=== PATIENT | female | born 1975 | race Caucasian/White ===

== ENCOUNTER 2017-11-13 13:32 | Emergency (ER) | payer OTHER ==
[2017-11-13 13:46] VITALS: BP 115/67
--- NOTE | 2017-11-13 14:35 | UC ---
Abdominal Pain Female HPI - HPI Summary HPI Summary: 42 year old female presents with complains of severe RUQ pain, diarrhea, nausea and vomiting. - History of Current Complaint Chief Complaint: UCAbdominalPain Stated Complaint: ABDOMINAL PAIN Time Seen by Provider: 11/13/17 14:33 Hx Obtained From: Family/Principal Examiner Hx Last Menstrual Period: 10/30/17 Onset/Duration: Sudden Onset Severity Initially: Moderate Severity Currently: Moderate Pain Scale Used: 0-10 Numeric - 7 Radiates to: Back Character: Cramping Aggravating Factor(s): Movement Allergies/Adverse Reactions: Allergies Allergy/AdvReac Type Severity Reaction Status Date / Time Latex Allergy Rash Verified 11/13/17 13:46 PMH/Surg Hx/FS Hx/Imm Hx Previously Healthy: Yes - Surgical History Surgical History: Yes Surgery Procedure, Year, and Place: t&a - Family History Known Family History: Positive: None - Social History Alcohol Use: None Substance Use Type: None Smoking Status (MU): Never Smoked Tobacco Have You Smoked in the Last Year: No - Immunization History Most Recent Influenza Vaccination: 07/2016 Most Recent Tetanus Shot: 06/2016 Most Recent Pneumonia Vaccination: never Review of Systems Constitutional: Negative Skin: Negative Eyes: Negative ENT: Negative Respiratory: Negative Cardiovascular: Negative Gastrointestinal: Abdominal Pain, Vomiting, Diarrhea, Nausea Genitourinary: Negative Motor: Negative Neurovascular: Negative Musculoskeletal: Negative Neurological: Negative Psychological: Negative All Other Systems Reviewed And Are Negative: Yes Physical Exam Triage Information Reviewed: Yes Vital Signs: Initial Vital Signs Temp 36.5 C 11/13/17 13:41 Pulse 81 11/13/17 13:41 Resp 18 11/13/17 13:41 BP 115/67 11/13/17 13:41 Pulse Ox 100 11/13/17 13:41 Vital Signs Reviewed: Yes Eye Exam: Normal ENT Exam: Normal Dental Exam: Normal Neck exam: Normal Neck: Positive: 1 Respiratory Exam: Normal Cardiovascular Exam: Normal Abdomen Description: Positive: Other: - ruq pain (+) polo sign Musculoskeletal Exam: Normal Neurological Exam: Normal Psychological Exam: Normal Skin Exam: Normal Abd Pain Female Course/Dx - Differential Dx/Diagnosis Provider Diagnoses: ruq pain. dirrrhea. nausea Discharge - Discharge Plan Condition: Stable Disposition: OTHER Discharge Disposition Comment: patient suggested to go to the er Patient Education Materials: Acute Abdominal Pain (ED) Referrals: Ney Javed, DOCTOR'S ASSISTANT [Primary Care Provider] - Additional Instructions: patient suggested to go to the er for severe ruq pain
== END 2017-11-13 14:48 ==
LOC: UCEAST 13:32
DX: R10.11 Right upper quadrant pain (principal); R19.7 Diarrhea, unspecified; R11.0 Nausea
CPT/HCPCS: 93005; 99211; G0463

== ENCOUNTER 2018-06-11 07:37 | Emergency (ER) | payer OTHER ==
--- NOTE | 2018-06-11 08:08 | ED ---
Abdominal Pain/Female - HPI Summary HPI Summary: This patient is a 42 year old F presenting to [facility] with a chief complaint of diarrhea since 4 weeks ago. She endorses abd sx of diarrhea off and on every 4 days for the past 4 weeks. In the past week, she endorses diarrhea all day every day. She states that every time she eats, she experiences diffuse abd pain. She also endorses rectal pain getting worse, loss of appetite, fatigue, hematochezia, bloating, and rectal ulcerations. Pt denies oral lesions, rashes, arthralgia, and fever. PMHx Crohns, but in remission. She denies sx of Crohn s for 3 years. Pt notes she was 23 years old when she first experienced sx. Pt denies taking any medication for these sx. - History of Current Complaint Chief Complaint: EDAbdPain Stated Complaint: ABD PAIN Time Seen by Provider: 06/11/18 07:50 Hx Obtained From: Patient Hx Last Menstrual Period: 10/30/17 Onset/Duration: Gradual Onset, Lasting Weeks, Still Present Timing: Constant Severity Initially: Moderate Severity Currently: Moderate Pain Intensity: 7 Pain Scale Used: 0-10 Numeric Location: Diffuse Radiates: No Aggravating Factor(s): Food Alleviating Factor(s): Nothing Associated Signs and Symptoms: Positive: Blood in Stool, Decreased Appetite, Diarrhea, Other: - fatigue. Negative: Fever Allergies/Adverse Reactions: Allergies Allergy/AdvReac Type Severity Reaction Status Date / Time latex Allergy Rash Verified 06/11/18 07:45 PMH/Surg Hx/FS Hx/Imm Hx GI History: Reports: Hx Crohn's Disease Sensory History: Denies: Hx Legally Blind Opthamlomology History: Denies: Hx Legally Blind EENT History: Denies: Hx Deafness Psychiatric History: Reports: Hx Anxiety, Hx Depression - hx SSRI use, on none at present - Surgical History Surgery Procedure, Year, and Place: t&a Infectious Disease History: No Infectious Disease History: Denies: Traveled Outside the [place] in Last 30 Days - Family History Known Family History: Positive: None - Social History Alcohol Use: None Substance Use Type: Reports: None Smoking Status (MU): Never Smoked Tobacco Have You Smoked in the Last Year: No Review of Systems Positive: Fatigue. Negative: Fever Negative: Other - oral lesions Positive: Abdominal Pain, Diarrhea Negative: Arthralgia Negative: Rash All Other Systems Reviewed And Are Negative: Yes Physical Exam - Summary Physical Exam Summary: Appearance: Well appearing, no pain distress Skin: warm, dry, reflects adequate perfusion, no rashes Head/face: normal Eyes: EOMI, ABDI ENT: normal Neck: supple, non-tender Respiratory: CTA, breath sounds present Cardiovascular: RRR, pulses symmetrical Abdomen: Soft, non-tender Bowel Sounds: present, normal Musculoskeletal: normal, strength/ROM intact, no joint swelling Neuro: normal, sensory motor intact, A&Ox3 Rectal: Single shallow ulceration at the anus, no bleeding or fissure Triage Information Reviewed: Yes Vital Signs On Initial Exam: Initial Vitals Temp Pulse Resp BP Pulse Ox 98 F 84 17 119/88 100 06/11/18 07:39 06/11/18 07:39 06/11/18 07:39 06/11/18 07:39 06/11/18 07:39 Vital Signs Reviewed: Yes Diagnostics - Vital Signs Vital Signs Temp Pulse Resp BP Pulse Ox 06/11/18 07:39 98 F 84 17 119/88 100 - Laboratory Result Diagrams: 06/11/18 08:56 06/11/18 08:10 Lab Statement: Any lab studies that have been ordered have been reviewed, and results considered in the medical decision making process. Abdominal Pain Fem Course/Dx - Course Course Of Treatment: Patient with a past medical history consistent with "a little Crohn's disease". She has not had any relapse in about 3 years. She is most concerned with having colon cancer despite having no bleeding or family history. She does have a rectal ulcer and symptoms over a month most consistent with Crohn's flare. She has no significant tenderness on exam. I discussed this with her GI doctor who came to the ER to evaluate her. He started her on medication here and will follow her up early in the week. They plan for colonoscopy shortly. - Diagnoses Provider Diagnoses: Chronic diarrhea, Acute Crohn's disease - Provider Notifications Discussed Care Of Patient With: Nish Martinez Time Discussed With Above Provider: 08:54 Instructed by Provider To: Other - Dr. Martinez agreed to see pt in ED. Discharge - Sign-Out/Discharge Documenting (check all that apply): Patient Departure - discharge - Discharge Plan Condition: Improved Disposition: HOME Prescriptions: Balsalazide Disodium [Colazal] 750 mg PO TID #90 capsule Patient Education Materials: Crohn Disease (ED), Chronic Diarrhea (ED) Referrals: Nish Martinez MD [Medical Doctor] - Ney Javed NP [Primary Care Provider] - Additional Instructions: Call Lela Ramirez the nurse and the GI office on Wednesday at [phone] to schedule colonoscopy Return with fever, vomiting, increased pain, worse or other concerns. - Billing Disposition and Condition Condition: IMPROVED Disposition: Home
[2018-06-11 08:19] VITALS: BP 125/82
[2018-06-11 08:37] LABS: EGFR Non-African American 86.9 (>60)
--- OUTSIDE RECORDS SUMMARY | 2018-06-11 08:40 | XMS REPORT ---
:1975 External Reference #:[id number] Author Organization [facility] Address [address] [place] [address] [place] [address] Phone [phone] Care Team Providers Name Role Phone Ney Javed NP Primary Care Physician Unavailable Payers Type Date Identification Numbers Payment Provider Subscriber Commercial Policy Number: [id number] [employer] Alexandra Hernandez PayID: [id number] [address] [place] [address] Problems Description No Information Family History Date Family Member(s) Problem(s) Comments Paternal Grandmother Breast Cancer Maternal Grandmother Breast Cancer Social History Type Date Description Comments Lives With Adult family home 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 [employer] Smoking Patient has never smoked Allergies, Adverse Reactions, Alerts Date Description Reaction Status Severity Comments 05/13/2018 NKDA active Medications Medication Date Status Form Strength Qnty SIG Indications Ordering Provider No Active 05/13/2018 Active Unknown Medications Vital Signs Date Vital Result Comment 05/13/2018 Height 64 inches 5'4" Weight 156.00 lb Heart Rate 81 /min BP Systolic 110 mmHg BP Diastolic 80 mmHg O2 % BldC Oximetry 98 % BMI (Body Mass Index) 26.8 kg/m2 Results Description No Information Procedures Description No Information Plan of Care 05/13/2018 - Dianne Rollins [id number] Encntr for veterinary surgery technician exam (general) (routine) w abnormal findingsComments:Rec Annual with Pap one yearRec Screening mammogram 6 months after weans [id number] Cystocele, midlineComments:Discussed Rx options incl observation, I recommend Pelvic PT, will refer, prefers [place].Not interested in pessary. Considering surgery but not now, ?s answered.Referral:No Doctor SelectedFollow up:Refer to [facility] [place] for Pelvic PT
[2018-06-11 09:04] LABS: ABS Basophils 0.1 10^3/ul (0-0.2); ABS Eosinophils 0.1 10^3/ul (0-0.6); ABS Lymphocytes 1.7 10^3/ul (1.0-4.8); ABS Monocytes 0.5 10^3/ul (0-0.8); ABS Neutrophils 4.9 10^3/ul (1.5-7.7); ABS Nucleated RBC 0 10^3/ul; Hematocrit 43 % (35-47); Hemoglobin 14.7 g/dl (12.0-16.0); Lymphocyte % 23.1 % (25-47); Mean Corpuscular HGB Conc 34 g/dl (31-36); Mean Corpuscular Hemoglobin 30 pg (27-31); Mean Corpuscular Volume 89 fL (80-97); Mean Platelet Volume 7.1 um3 (7.4-10.4); Nucleated Red Blood Cells % 0; Platelet Count 307 10^3/ul (150-450); Red Blood Count 4.86 10^6/ul (4.00-5.40); Red Cell Distribution Width 14 % (10.5-15); White Blood Count 7.3 10^3/ul (3.5-10.8)
--- NOTE | 2018-06-11 14:08 | CONS ---
GASTROENTEROLOGY CONSULTATION: DATE: 06/11/18 REFERRING PHYSICIANS: Stephane Maddox, ER; Ney Javed NP, [place]. REASON FOR CONSULT: Crampy abdominal pain and increasing diarrhea over the last 7 to 8 weeks. 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 She did not respond to Pentasa or Entocort (never took PO steroids) and later seemed to do well on a very restrictive diet. She began to have diarrhea over the day about once a week, sometime in late March and this has progressed to every day symptoms She was eating pretty much a general diet, moderately low in carbohydrates, dairy and with some minimal gluten restriction as she was eating a fair amount to support nursing her [id number] daughter. The loose stools gradually increased to 2 to 3 and then 4 days in a week after each meal, especially in the evening. She began to be worried that she might have colon cancer and that thought has dominated her thinking in the last couple of weeks. At this point, she was having pain and diarrhea after every meal the last 2 weeks. She has had some rectal pain over the last week and there was 1 day with some bright red rectal bleeding. She had not had any fever, rash, or nausea and vomiting. She has been tired, but admits she does not get much sleep as her daughter is up nursing regularly. The daughter is eating solid food and is healthy. Dr Burk is the child's research and development engineer. Her last antibiotic was she believes Cipro for mastitis 6 to 7 months ago and there was clearly no change in her gut status at that time or for several months thereafter. She does not chew gum or have sugar free items. PAST MEDICAL HISTORY: 1. Crohn's disease - she had a colonoscopy in 2006 with ileal and ileocecal valve area aphthous erosions. Pentasa and Entocort (? some other medications) did not seem to help and she went on a very restricted diet that was essentially no carbohydrates, no gluten, no dairy (yogurt was permitted) and she seemed to get better. In 2014, she had a flare up of symptoms and a second colonoscopy showed a single aphthoid erosion in the ileum. She admitted that the symptoms had been fading even before the colonoscopy. Dr. Dai did not feel an inflammatory bowel disease was related to the symptoms at that time. She did not f/u with Dr Dai but went to an apparatus cleaner, who did not find any food allergy, though the patient, said the apparatus cleaner did not do a complete set of tests and she thought the workup was incomplete. At that time, she went back to the 2006 diet and did well, although has gradually been loosening up. Over the last couple of weeks, she has been putting restrictions back in. 2. Tonsillectomy. FAMILY HISTORY: There is no family history of inflammatory bowel disease. There is no family history of colon cancer. An aunt has IBS. 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 She has 2 children and her son age 5-1/2 actually was weaned in the course of practically getting through her 2015 colonoscopy. Her is content producer at [employer]. She is from [place] originally. REVIEW OF SYSTEMS: She has no history of seizure, neurologic disorder, TB, hemoptysis, chronic lung disease, skin rash, renal stones, renal disease. All her life, she has had dietary sensitivities related to high-fat meals, especially beef and pork induced diarrhea. Dr. Dai thought there were functional triggers when she was seen in 2014. PHYSICAL EXAM: She is a healthy-appearing young woman, crying at intervals when discussing her family history and the risk of cancer. HEENT exam is unremarkable. She has no adenopathy. Her lungs are clear and heart sounds are normal. The abdomen is symmetric with normal bowel sounds, soft, and nontender. Perianal inspection is generally normal with general abstraction showing small fissures at noon and 7 o'clock at the verge. Digital rectal is tolerated better than expected and is normal with no specimen. Extremities were normal. DIAGNOSTIC STUDIES/LAB DATA: Yesterday, stool analysis was positive for lactoferrin and today CBC, hemoglobin 14.7, white count 7.3, platelets 307. CRP 1.77. LFTs normal. Albumin 4.4, BUN 20, creatinine 0.74. Other labs from the past show TSH normal at 2.87 in December 2017, cortisol 16.3 at 8:40 a.m. in October 2014, vitamin D low at 13.5 in December 2017, at which time a lipid panel showed cholesterol 276, triglycerides 296, HDL 61.7, and hemoglobin A1c 5.7. She has been worked up then by Ney Javed for polydipsia. IMPRESSION: This 42-year-old woman, a mother of 2 young children, still nursing her eightteen month old, has a history of ileocecal Crohn's that was been endoscopically mild in 2006 and endoscopically felt to be negligible by Dr. Dai in 2014. She has not had any systemic symptoms associated with the current 7 to 8 weeks of diarrhea, though she is fatigued and has lost a few pounds and there is lactoferrin in the stool. Inflammatory bowel disease certainly could be part of the clinical picture here and starting balsalazide 3 tablets b.i.d. is reasonable as one awaits the performance of a colonoscopy. No other obvious dietary trigger is present. She will be exploring the question of nursing weaning and balsalazide. [id number]/CPS #: [id number] MTDD
== END 2018-06-11 10:50 | disposition home or self-care (01) ==
LOC: ED 07:37
DX: K50.90 Crohn's disease, unspecified, without complications (principal)
CPT/HCPCS: 36415; 80053; 83516; 83690; 85025; 86140; 86256; 99282

== ENCOUNTER 2019-01-12 11:20 | Emergency (ER) | payer OTHER ==
--- OUTSIDE RECORDS SUMMARY | 2019-01-12 11:43 | XMS REPORT | Continuity of Care Document ---
:1975 External Reference #:[id number] Author Name Swetha Salomon Care Team Providers Name Role Phone Ney Javed NP Primary Care Physician Unavailable Payers Date Identification Numbers Payment Provider Subscriber Policy Number: [id number] [employer] Alexandra Hernandez PayID: [id number] [address] [place] [address] Advance Directives Description No Information Available Problems Description No Information Family History Date Family Member(s) Observation Comments Father Hypertension as of 2018 no complications Mother Hypothyroidism Paternal Grandmother Breast Cancer Maternal Grandmother Breast Cancer Social History Type Date Description Comments Sex Unknown 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 Lives With Adult family home Lives With Children 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 [employer] Tobacco Use Start: Unknown End: Patient is a former smoker Unknown Smoking Status Reviewed: 01/10/19 Patient is a former smoker Allergies, Adverse Reactions, Alerts Description No Known Drug Allergies Medications Medication Date Status Form Strength Qnty SIG Indications Ordering Provider Multivitamin Active Tablets 1 by Unknown Adult 00 mouth every day Vitamin D-3 Active Capsules 1000Unit 1 by Unknown 00 mouth every day No Active 05/13/20 Hx Unknown Medications 18 - 12/09/19 19 Immunizations Description No Information Available Vital Signs Date Vital Result Comment 01/10/2019 11:15am Height 64 inches 5'4" Weight 161.00 lb Heart Rate 86 /min BP Systolic 110 mmHg BP Diastolic 76 mmHg O2 % BldC Oximetry 98 % BMI (Body Mass Index) 27.6 kg/m2 12/16/2018 2:52pm Height 64 inches 5'4" Weight 161.00 lb Heart Rate 93 /min BP Systolic 117 mmHg BP Diastolic 80 mmHg O2 % BldC Oximetry 97 % BMI (Body Mass Index) 27.6 kg/m2 Last Menstrual Period [id number] 12/09/2018 2:56pm Height 64 inches 5'4" Weight 160.38 lb Heart Rate 80 /min BP Systolic 141 mmHg BP Diastolic 83 mmHg O2 % BldC Oximetry 99 % BMI (Body Mass Index) 27.5 kg/m2 08/17/2018 1:45pm Height 64 inches 5'4" Weight 152.00 lb Heart Rate 68 /min BP Systolic 114 mmHg BP Diastolic 81 mmHg Respiratory Rate 18 /min Body Temperature 97.1 F Pain Level 0 O2 % BldC Oximetry 99 % BMI (Body Mass Index) 26.1 kg/m2 05/13/2018 2:56pm Height 64 inches 5'4" Weight 156.00 lb Heart Rate 81 /min BP Systolic 110 mmHg BP Diastolic 80 mmHg O2 % BldC Oximetry 98 % BMI (Body Mass Index) 26.8 kg/m2 Results Test Date Facility Test Result H/L Range Note CBC Auto Diff 12/16/2018 [facility] [place] White Blood 8.9 10^3/uL N 3.5-10.[address] [address] [phone] Red Blood Count 4.77 10^6/uL N 4.00-5.40 Hemoglobin 14.5 g/dL N 12.0-16.0 Hematocrit 42 % N 35-47 Mean Corpuscular Volume 89 fL N 80-97 Mean Corpuscular Hemoglobin 30 pg N 27-31 Mean Corpuscular HGB Conc 34 g/dL N 31-36 Red Cell Distribution Width 14 % N 10.5-15 Platelet Count 386 10^3/uL N 150-450 Mean Platelet Volume 7.5 fL N 7.4-10.4 Abs Neutrophils 4.8 10^3/uL N 1.5-7.7 Abs Lymphocytes 3.1 10^3/uL N 1.0-4.8 Abs Monocytes 0.5 10^3/uL N 0-0.8 Abs Eosinophils 0.4 10^3/uL N 0-0.6 Abs Basophils 0.1 10^3/uL N 0-0.2 Abs Nucleated RBC 0 10^3/uL Granulocyte % 54.2 % Lymphocyte % 35.0 % Monocyte % 5.8 % Eosinophil % 4.2 % Basophil % 0.8 % Nucleated Red Blood Cells % 0.1 Laboratory test 12/16/2018 [facility] [place] HCG < 0.60 mIU/ mL [address] [place] [address] [phone] TSH (Thyroid Stim Horm) 1.13 mcIU/mL N 0.34-5.60 Vitamin B12 536 pg/mL N 180-914 2 Free T4 (Free Thyroxine) 0.69 ng/dL N 0.61-1.12 Vitamin D Total 25(Oh) 28.7 ng/mL N 20-50 Lyme Western 12/16/2018 [facility] [place] Lyme Disease Negative Negative Blot [address] [place] [address] [phone] Lyme Disease IgG Bands Present p41,p39 kDa Lyme Disease IgM Ab WB Negative Negative Lyme Disease IgM Bands Present No bands detecte <SEE NOTE> kDa 3 Lyme Disease Interpretation See Comment 4 Basic Metabolic Panel 12/16/2018 [facility] [place] Sodium 138 mmol/L N 135-[address] [place] [address] [phone] Potassium 4.4 mmol/L N 3.5-5.0 Chloride 105 mmol/L N 101-111 Co2 Carbon Dioxide 26 mmol/L N 22-32 Anion Gap 7 mmol/L N 2-11 Glucose 115 mg/dL High 70-100 Blood Urea Nitrogen 16 mg/dL N 6-24 Creatinine 0.86 mg/dL N 0.51-0.95 BUN/Creatinine Ratio 18.6 N 8-20 Calcium 9.7 mg/dL N 8.6-10.3 Egfr Non- 72.7 >60 Egfr 88.0 >60 5 Laboratory test 12/16/2018 [facility] [place] Cytology SEE RESULT [address] [place] [address] [phone] Laboratory test 12/09/2018 [facility] Test negative finding Urine Ua Routine 12/09/2018 [facility] Ua Specific 1.010 [place] Ua PH 8 Ua Color yellow Ua Appera cloudy Ua WBC negative Ua Protein trace Ua Glucose normal Ua Ketones negative Ua Bilirubin negative Ua Urobilinogen normal Ua Nitrite negative Ua Occult Blood about 50 1 <5.0 Negative 5.0 - 25.0 Indeterminate (Repeat testing recommended after 72 hours) >25.0 Positive Perimenopausal women can display HCG levels of up to 20 mIU/mL 2 Normal Range 180 to 914 Indeterminate Range 145 to 180 Deficient Range <145 3 No bands detected 4 Specific serologic response to B. burgdorferi infection is not detected, but cannot rule out early infection during which low or undetectable antibody levels to B. burgdorferi may be present. If clinically indicated, a new serum specimen should be submitted in 7-14 days. ADDITIONAL INFORMATION Per CDC criteria, the Lyme IgG Immunoblot is interpreted as positive if IgG-class antibodies are detected to >=5 B. burgdorferi proteins, and the Lyme IgM Immunoblot is interpreted as positive if IgM-class antibodies are detected to >=2 B. burgdorferi proteins. Immunoblot patterns not meeting these criteria should not be interpreted as positive. Epitopes from certain B. burgdorferi proteins (e.g., p41) are conserved across other bacteria, which may lead to the detection of IgM- and/or IgG-class antibodies on the Lyme disease immunoblots in patients without Lyme disease. Immunoblot should only be ordered on specimens that are positive or equivocal by a FDA-licensed Lyme disease antibody screening test (e.g., EIA). Results of the Lyme IgM immunoblot should not be considered in patients with >=30 days of symptoms. Test Performed by: [facility] [address] [place] [address] 5 Because ethnic data is not always readily available, this report includes an eGFR for both -Americans and non- Americans. The National Kidney Disease Education Program (NKDEP) does not endorse the use of the MDRD equation for patients that are not between the ages of 18 and 70, are , have extremes of body size, muscle mass, or nutritional status, or are non- or non-. According to the National Kidney Foundation, irrespective of diagnosis, the stage of the disease is based on the level of kidney function: Stage Description GFR(mL/min/1.73 m(2)) 1 Kidney damage with normal or decreased GFR 90 2 Kidney damage with mild decrease in GFR 60-89 3 Moderate decrease in GFR 30-59 4 Severe decrease in GFR 15-29 5 Kidney failure <15 (or dialysis) 6 SEE RESULT BELOW Name: ALEXANDRA HERNANDEZ : [address]: Dianne Rollins MD Acct: [id number] Unit: [id number] AGE: 43 Location: [facility] Re12/16/18 SEX: F Status: REG REF SPEC: [id number] JAH: 12/16/[address]: Dianne Rollins MD REQ: [id number] RECD: 12/16/18 STATUS: SOUT _ ORDERED: TP IMAGE ANALYS, HPV/Thin Prep COMMENTS: [id number] Negative for Intraepithelial lesion or Malignancy Date Time Test Result Flag (u) Normal Range 12/16/181528 @ HPV RNA Negative Negative @ @ The high-risk HPV types detected by the assay include: 16, @ 18, 31, 33, 35, 39, 45, 51, 52, 56, 58, 59, 66, and 68. A. Ectocervical/Endocervical Specimen Adequacy: Satisfactory of evaluation Transformation zone component identified Patient Information: HPV: High risk HPV RNA testing regardless of pap results. Actual Specimen Date: 12/16/18 Last Menstrual Date: 11/29/18 ?: N Post Menopausal?: N Hysterectomy?: N Signed by and Reported on: MANUEL Aguilar (ASCP) [id number] This Pap test was evaluated with the assistance of the InstacartPrep Test Imaging System. Due to cytologic findings at the nuclear powerplant mechanic microscope, comprehensive manual rescreening by a Antique Refinisher may be required. The Pap Smear is a screening test designed to aid in the detection of premalignant and malignant conditions of the uterine cervix. It is not a diagnostic procedure and should not be used as the sole means of detecting cervical cancer. Both false- positive and false- negative reports do occur. Depending on your risk status, a Pap smear should be obtained and evaluated every 1-3 years. END OF REPORT DEPARTMENT OF PATHOLOGY, [address] [place] [address] Markus Navarrete M.D. 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 Sono week of 02/06/19 if possible, otherwise just after 02/2019 menses.
--- OUTSIDE RECORDS SUMMARY | 2019-01-12 11:43 | XMS REPORT | Continuity of Care Document ---
:1975 External Reference #:[id number] Author Name Swetha Salomon Care Team Providers Name Role Phone Ney Javed NP Primary Care Physician Unavailable Payers Type Date Identification Numbers Payment Provider Subscriber Policy Number: [id number] [employer] Alexandra Hernandez PayID: [id number] [address] [place] [address] Advance Directives Description No Information Available Problems Description No Information Family History Date Family Member(s) Problem(s) Comments Father Hypertension as of 2017 no complications Mother Hypothyroidism Paternal Grandmother Breast Cancer Maternal Grandmother Breast Cancer Social History Type Date Description Comments Sex Unknown 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] Date Facility Test Result H/L Range Note Laboratory test 12/16/2018 [facility] Cytology <pending> finding [address] [place] [address] [phone] Laboratory test 12/09/2018 [facility] Test negative finding Urine Ua Routine 12/09/2018 [facility] Ua Specific 1.010 [place] Ua PH 8 Ua Color yellow Ua Appera cloudy Ua WBC negative Ua Protein trace Ua Glucose normal Ua Ketones negative Ua Bilirubin negative Ua Urobilinogen normal Ua Nitrite negative Ua Occult Blood about 50 Procedures Date Code Description Status 06/21/2018 [id number] Colonoscopy Completed 07/15/2015 [id number] Colonoscopy Completed 04/14/2007 [id number] Colonoscopy Completed Encounters Type Date Location Provider Dx Diagnosis Office Visit 08/17/2018 [facility] Gastroenterology Nish Escobar 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 Plan of Treatment Future Appointment(s):01/24/2019 11:30 am - Dianne Rollins MD at [facility]12/16/2018 - Dianne Rollins MDN93.0 Postcoital and contact bleedingComments:Pap collected and sentFollow up:Please schedule follow up appt with me after sono to review [id number] Other fatigueNew Labs:CBC Auto Diff, Ordered: 12/16/18HCG , Ordered: 12/16/18TSH (Thyroid Stim Horm), Ordered: 12/16/18Vitamin B12, Ordered: 12/16/18Free T4 (Free Thyroxine), Ordered : 12/16/18Vitamin D Total 25(Oh), Ordered: 12/16/18Lyme Western Blot, Ordered: 12/16/18Basic Metabolic Panel, Ordered: 12/16/18
--- OUTSIDE RECORDS SUMMARY | 2019-01-12 11:43 | XMS REPORT | Continuity of Care Document ---
:1975 External Reference #:[id number] Author Name TORY Benjamin Address [address] [place] [address] Care Team Providers Name Role Phone TORY Benjamin Care Team Information Certified Tumor Registrar Unavailable Payers Date Identification Numbers Payment Provider Subscriber Policy Number: [id number] [facility] Alexandra Hernandez PayID: [id number] 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 Stoppe End: Unknown smoker 15+ years ago Recreational Drug Use Denies Drug Use Enjoy Exercising Enjoys exercising not getting much exercise Allergies, Adverse Reactions, Alerts Description No Known Drug Allergies Medications Medication Date Status Form Strength Qnty SIG Indications Ordering Provider Vitamin D 01/10/ Active Capsules 81856Ihon 8caps take 1 M79.10 Shawnti (Ergocalcifero 2019 capsule by no Pizano) mouth twice COMBINE DRIVER-C weekly for 4 weeks Prednisone 08/31/ Active Tablets 20mg 10tabs 2 by mouth J20.9 Luisana 2018 every day Hillary, for 5 days M.D., R.D. Ventolin HFA 08/31/ Active Aerosol 108(90Base 54unit inhale two J20.9 Luisana 2017 ) mcg/Act s puffs by Hillary, mouth tid to Elise, qid R.D. Proctozone-HC 06/07/ Active Cream 2.5% 30gm apply to K51.911 [facility] 2018 hemorrhoids Bernie Javed, 3 - 4 times COMBINE DRIVER-C daily if needed Marion 3 06/16/ Active Capsules Luisana 2017 Elise Thornton, R.D. Multi Vitamin / Active Tablets 1 by mouth Unknown Daily 0000 every day Vitamin D / Active Tablets 1000Unit 1 by mouth Unknown 0000 every day Azithromycin 08/31/ Hx Tablets 250mg 6tabs 2 by mouth J20.9 Luisana 2018 - today then 1 Hillary, 01/10/ by mouth M.DAnthony, 2019 daily for 4 R.D. days Alprazolam 06/14/ Hx Tablets 0.25mg 14tabs take 1/2 to F43.0 Shinenti 2018 - 1 tab twice Bernie Javed, 08/23/ daily if COMBINE DRIVER-C 2018 needed for anxiety Vitamin D 01/14/ Hx Capsules [id number] 8caps take 1 Shawnti (Ergocalcifero 2018 - capsule by no Pizano) 06/07/ mouth twice COMBINE DRIVER-C 2018 weekly for 4 weeks No Active 06/16/ Hx Unknown Medications 2016 - 2016 06/16/ Hx Tablets Luisana Vitamins 2017 - Hillary, 02/21/ MAnthonyDAnthony, 2018 R.D. Cephalexin 06/16/ Hx Capsules 500mg 30caps 1 by mouth N61.0 Luisana 2017 - three times Hillary, 08/13/ a day for 7 M.D., 2017 days R.D. Immunizations CPT Code Status Date Vaccine Lot # [id number] Given 11/30/2017 Influenza Virus Vaccine, Quadrivalent, 3 Yr > Quad, Preserv Free Vital Signs Date Vital Result Comment 01/10/2019 1:48pm Weight 161.25 lb Weight 73.143 kg BP Systolic 112 mmHg BP Diastolic 64 mmHg Heart Rate 80 /min Body Temperature 98.6 F Respiratory Rate 16 /min Last Menstrual Period 7136401 O2 % BldC Oximetry 98 % 08/31/2018 3:12pm Weight 155.00 lb Weight 70.308 kg BP Systolic 108 mmHg BP Diastolic 68 mmHg Heart Rate 94 /min Body Temperature 99.3 F Respiratory Rate 20 /min O2 % BldC Oximetry 99 % 08/23/2018 3:45pm Weight 154.00 lb Weight 69.854 kg BP Systolic 110 mmHg BP Diastolic 78 mmHg Heart Rate 70 /min Body Temperature 98.0 F Respiratory Rate 16 /min O2 % BldC Oximetry 98 % 06/14/2018 4:27pm Weight 151.00 lb Weight 68.494 kg BP Systolic 110 mmHg BP Diastolic 70 mmHg Heart Rate 72 /min Body Temperature 97.2 F Respiratory Rate 16 /min 06/07/2018 10:19am Weight 154.00 lb Weight 69.854 kg BP Systolic 102 mmHg BP Diastolic 68 mmHg Heart Rate 72 /min Body Temperature 97.7 F Respiratory Rate 16 /min 02/21/2018 9:28am Weight 154.00 lb Weight 69.854 kg BP Systolic 110 mmHg BP Diastolic 65 mmHg Heart Rate 84 /min Body Temperature 97.8 F Height 63.5 inches 5'3.50" BMI (Body Mass Index) 26.8 kg/m2 Last Menstrual Period 1406723 O2 % BldC Oximetry 98 % 01/13/2018 11:06am Weight 150.00 lb Weight 68.040 kg BP Systolic 110 mmHg BP Diastolic 60 mmHg Heart Rate 70 /min Body Temperature 97.3 F Respiratory Rate 16 /min O2 % BldC Oximetry 98 % 11/12/2017 9:46am Weight 148.00 lb Weight 67.133 kg BP Systolic 110 mmHg BP Diastolic 68 mmHg Heart Rate 70 /min Body Temperature 98.9 F Respiratory Rate 16 /min O2 % BldC Oximetry 98 % 08/13/2017 9:46am Weight 151.00 lb Weight 68.494 kg BP Systolic 104 mmHg BP Diastolic 70 mmHg Heart Rate 72 /min Body Temperature 97.5 F O2 % BldC Oximetry 98 % 06/16/2017 4:23pm Weight 152.00 lb Weight 68.947 kg BP Systolic 104 mmHg BP Diastolic 60 mmHg Heart Rate 80 /min Body Temperature 99.5 F Respiratory Rate 16 /min Height 64 inches 5'4" BMI (Body Mass Index) 26.1 kg/m2 Results Test Date Facility Test Result H/L Range Note Laboratory test 01/10/2019 [facility] Nuclear AB < pending> finding [phone] (Andie) By Ifa Igg Anti Ssa/Ro <pending> Anti SSB LA <pending> C Reactive Protein <pending> Cyclic Citrullinated Pep Igg <pending> Creatine Kinase(CK) <pending> Hla B27 <pending> Rheumatoid Factor <pending> CBC Auto Diff 12/16/2018 [facility] White Blood 8.9 10^3/uL N 3.5-10.8 [phone] Count Red Blood Count 4.77 10^6/uL N 4.00-5.40 [...] % Nucleated Red Blood Cells % 0.1 Basic Metabolic 12/16/2018 [facility] Sodium 138 mmol /L N 135-145 Panel [phone] Potassium 4.4 mmol/L N 3.5-5.0 Chloride 105 mmol/L N 101-111 Co2 Carbon Dioxide 26 mmol/L N 22-32 Anion Gap 7 mmol/L N 2-11 Glucose 115 mg/dL High 70-100 Blood Urea Nitrogen 16 mg/dL N 6-24 Creatinine 0.86 mg/dL N 0.51-0.95 BUN/Creatinine Ratio 18.6 N 8-20 Calcium 9.7 mg/dL N 8.6-10.3 Egfr Non- 72.7 >60 Egfr 88.0 >60 1 Laboratory test 12/16/2018 [facility] HCG < 0.60 mIU/mL 2 finding [phone] TSH (Thyroid Stim Horm) 1.13 mcIU/mL N 0.34-5.60 Free T4 (Free Thyroxine) 0.69 ng/dL N 0.61-1.12 Vitamin B12 536 pg/mL N 180-914 3 Vitamin D Total 25(Oh) 28.7 ng/mL N 20-50 Lyme Western 12/16/2018 [facility] Lyme Disease Negative Negative Blot [phone] IgG Ab WB Lyme Disease IgG Bands Present p41,p39 kDa Lyme Disease IgM Ab WB Negative Negative Lyme Disease IgM Bands Present No bands detecte <SEE NOTE> kDa 4 Lyme Disease Interpretation See Comment 5 Laboratory test 08/23/2018 [facility] TSH (Thyroid 2.20 mcIU/mL N 0.34-5.60 6 finding [phone] Stim Horm) CBC Auto Diff 08/23/2018 [facility] White Blood 8.9 10^3/uL N 3.5-10.8 [phone] Count Red Blood Count 4.49 10^6/uL N 4.00-5.40 Hemoglobin 13.7 g/dL N 12.0-16.0 Hematocrit 40 % N 35-47 Mean Corpuscular Volume 90 fL N 80-97 Mean Corpuscular Hemoglobin 31 pg N 27-31 Mean Corpuscular HGB Conc 34 g/dL N 31-36 Red Cell Distribution Width 13 % N 10.5-15 Platelet Count 406 10^3/uL N 150-450 Mean Platelet Volume 7.4 um3 N 7.4-10.4 Abs Neutrophils 4.6 10^3/uL N 1.5-7.7 Abs Lymphocytes 3.2 10^3/uL N 1.0-4.8 Abs Monocytes 0.7 10^3/uL N 0-0.8 Abs Eosinophils 0.3 10^3/uL N 0-0.6 Abs Basophils 0.1 10^3/uL N 0-0.2 Abs Nucleated RBC 0 10^3/uL Granulocyte % 51.6 % N 38-83 Lymphocyte % 36.3 % N 25-47 Monocyte % 7.8 % High 0-7 Eosinophil % 3.4 % N 0-6 Basophil % 0.9 % N 0-2 Nucleated Red Blood Cells % 0.2 Laboratory test 06/21/2018 [facility] Surgical SEE RESULT 7 finding [phone] Interface BELOW Order Laboratory test 06/16/2018 [facility] Helico Pylori Negative Negative 8 finding [phone] Antigen- Stool Stool Panel 06/16/2018 [facility] C Difficile SEE RESULT 9 (CMC) [phone] PCR BELOW Stool Occult 06/16/2018 [facility] Stool Occult SEE RESULT 10 Blood Diag [phone] Blood, Diag BELOW Laboratory test 06/11/2018 [facility] Anti Negative Negative 11 finding [phone] Endomysial Antibody Anti Gliadin 06/11/2018 [facility] Gliadin IgG <10.0 U 12 Igg And Iga AB [phone] Gliadin IgA <10.0 U 13 Laboratory test 06/11/2018 [facility] Tissue <1.2 U/ mL 14 finding [phone] Transglutaminase Igg AB Tissue Transglutaminase IgA Ab <1.2 U/mL 15 CBC Auto Diff 06/11/2018 [facility] White Blood 7.3 10^3/uL N 3.5-10.8 [phone] Count Red Blood Count 4.86 10^6/uL N 4.00-5.40 Hemoglobin 14.7 g/dL N 12.0-16.0 Hematocrit 43 % N 35-47 Mean Corpuscular Volume 89 fL N 80-97 Mean Corpuscular Hemoglobin 30 pg N 27-31 Mean Corpuscular HGB Conc 34 g/dL N 31-36 Red Cell Distribution Width 14 % N 10.5-15 Platelet Count 307 10^3/uL N 150-450 Mean Platelet Volume 7.1 um3 Low 7.4-10.4 Abs Neutrophils 4.9 10^3/uL N 1.5-7.7 Abs Lymphocytes 1.7 10^3/uL N 1.0-4.8 Abs Monocytes 0.5 10^3/uL N 0-0.8 Abs Eosinophils 0.1 10^3/uL N 0-0.6 Abs Basophils 0.1 10^3/uL N 0-0.2 Abs Nucleated RBC 0 10^3/uL Granulocyte % 67.2 % N 38-83 Lymphocyte % 23.1 % Low 25-47 Monocyte % 6.6 % N 0-7 Eosinophil % 2.0 % N 0-6 Basophil % 1.1 % N 0-2 Nucleated Red Blood Cells % 0 Laboratory test 06/11/2018 [facility] Lipase 23 U/L N 11.0-82.0 finding [phone] C Reactive Protein 1.77 mg/L N <8.01 Comp Metabolic Panel 06/11/2018 [facility] Sodium 136 mmol/L N 135-145 [phone] Potassium 4.1 mmol/L N 3.5-5.0 Chloride 108 mmol/L N 101-111 Co2 Carbon Dioxide 21 mmol/L Low 22-32 Anion Gap 7 mmol/L N 2-11 Glucose 105 mg/dL High 70-100 Blood Urea Nitrogen 20 mg/dL N 6-24 Creatinine 0.74 mg/dL N 0.51-0.95 BUN/Creatinine Ratio 27.0 High 8-20 Calcium 9.4 mg/dL N 8.6-10.3 Total Protein 7.6 g/dL N 6.4-8.9 Albumin 4.4 g/dL N 3.2-5.2 Globulin 3.2 g/dL N 2-4 Albumin/Globulin Ratio 1.4 N 1-3 Total Bilirubin 0.50 mg/dL N 0.2-1.0 Alkaline Phosphatase 68 U/L N 34-104 Alt 14 U/L N 7-52 Ast 14 U/L N 13-39 Egfr Non- 86.9 >60 Egfr 105.2 >60 16 Laboratory 02/21/2018 [facility] Vitamin D, 81 pg/mL Abnormal 18-78 17 test finding [phone] 1,25 Dihydroxy CBC Auto Diff 01/13/2018 [facility] White Blood 9.0 N 3.5-10.8 [phone] Count 10^3/uL Red Blood Count 4.67 10^6/uL N 4.0-5.4 Hemoglobin 14.0 g/dL N 12.0-16.0 Hematocrit 42 % N 35-47 Mean Corpuscular Volume 90 fL N 80-97 Mean Corpuscular Hemoglobin 30 pg N 27-31 Mean Corpuscular HGB Conc 33 g/dL N 31-36 Red Cell Distribution Width 14 % N 10.5-15 Platelet Count 384 10^3/uL N 150-450 Mean Platelet Volume 8 um3 N 7.4-10.4 Abs Neutrophils 5.2 10^3/uL N 1.5-7.7 Abs Lymphocytes 2.7 10^3/uL N 1.0-4.8 Abs Monocytes 0.7 10^3/uL N 0-0.8 Abs Eosinophils 0.3 10^3/uL N 0-0.6 Abs Basophils 0.1 10^3/uL N 0-0.2 Abs Nucleated RBC 0 10^3/uL Granulocyte % 58.2 % N 38-83 Lymphocyte % 30.0 % N 25-47 Monocyte % 7.7 % N 1-9 Eosinophil % 3.0 % N 0-6 Basophil % 1.1 % N 0-2 Nucleated Red Blood Cells % 0.1 Comp Metabolic Panel 01/13/2018 [facility] Sodium 136 mmol/L N 133-145 [phone] Potassium 4.4 mmol/L N 3.5-5.0 Chloride 102 mmol/L N 101-111 Co2 Carbon Dioxide 27 mmol/L N 22-32 Anion Gap 7 mmol/L N 2-11 Glucose 93 mg/dL N 70-100 Blood Urea Nitrogen 17 mg/dL N 6-24 Creatinine 0.69 mg/dL N 0.51-0.95 BUN/Creatinine Ratio 24.6 High 8-20 Calcium 10.1 mg/dL N 8.6-10.3 Total Protein 7.7 g/dL N 6.4-8.9 Albumin 4.7 g/dL N 3.2-5.2 Globulin 3.0 g/dL N 2-4 Albumin/Globulin Ratio 1.6 N 1-3 Total Bilirubin 0.30 mg/dL N 0.2-1.0 Alkaline Phosphatase 75 U/L N 34-104 Alt 32 U/L N 7-52 Ast 21 U/L N 13-39 Egfr Non- 94.2 >60 Egfr 121.2 >60 18 Laboratory test 01/13/2018 [facility] TSH (Thyroid 2.87 mcIU/mL N 0.34-5.60 19 finding [phone] Stim Horm) Vitamin D Total 25(Oh) 13.5 ng/mL Low 20-50 20 Hemoglobin A1c (Glyco HGB) 5.7 % High 4.0-5.6 21 Lipid Profile 01/13/2018 [facility] Triglycerides 296 mg/dL 22 (Trig/Chol/HDL) [phone] Cholesterol 276 mg/dL 23 HDL Cholesterol 61.7 mg/dL 24 LDL Cholesterol 155 mg/dL 25 Laboratory test 01/13/2018 [facility] Cytology SEE RESULT 26 finding [phone] Non-Nurse Midwife/Clinical Instructor BELOW 1 Because ethnic data is not always readily [...] 15-29 5 Kidney failure <15 (or dialysis) 2 <5.0 Negative 5.0 - 25.0 Indeterminate (Repeat testing recommended after 72 hours) >25.0 Positive Perimenopausal women can display HCG levels of up to 20 mIU/mL 3 Normal Range 180 to 914 Indeterminate Range 145 to 180 Deficient Range <145 4 No bands detected 5 Specific serologic response to B. burgdorferi infection [...] >=30 days of symptoms. 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 Colon, random right, biopsy: -- Benign colonic mucosa with no significant pathologic abnormalities. -- No evidence of microscopic colitis. 2. Colon, random transverse, biopsy: -- Benign colonic mucosa with no significant pathologic abnormalities. -- No evidence of microscopic colitis. 3. Colon, random descending, biopsy: -- Benign colonic mucosa with no significant pathologic abnormalities. -- No evidence of microscopic colitis. 4. Colon, random sigmoid, biopsy: -- Benign colonic mucosa with no significant pathologic abnormalities. -- No evidence of microscopic colitis. CLINICAL HISTORY Restricted diet POST-OPERATIVE DIAGNOSIS Colonoscopy to cecum with ease; excellent prep; conclusion: normal colon and terminal ileum; hypertrophied anal papillae; diarrhea, irritable bowel syndrome (?) GROSS DESCRIPTION 1. The specimen is received in formalin labeled, Random Right Colon Biopsies, and consists of three keenan white irregular soft tissue fragments ranging from 0.2 x 0.2 x 0.1 cm to 0.8 x 0.2 x 0.1 cm which are submitted entirely in one cassette. CONTINUED ON NEXT PAGE DEPARTMENT OF PATHOLOGY, [address] [place] [address] Markus Navarrete M.D. Director [facility] # [id number] RUN DATE: 06/22/18 [facility] LIVE PAGE 2 Patient: ALEXANDRA HERNANDEZ [id number] (Continued) GROSS DESCRIPTION (Continued) GROSS DESCRIPTION (Continued) 2. The specimen is received in formalin labeled, Random Transverse Colon Biopsies, and consists of two keenan-white irregular soft tissue fragments measuring 0.5 x 0.1 x 0.1 cm and 1.2 by up to 0.2 x 0.1 cm which are submitted entirely in one cassette. 3. The specimen is received in formalin labeled, Random Descending Colon Biopsy, and consists of two keenan-white irregular soft tissue fragments measuring 0.4 x 0.1 x 0.1 cm and 0.7 x 0.2 x 0.1 cm which are submitted entirely in one cassette. 4. The specimen is received in formalin labeled, Random Sigmoid Colon Biopsy, and consists of two keenan-white irregular soft tissue fragments averaging 0.7 x 0.2 x 0.1 cm which are submitted entirely in one cassette. Signed by and Reported on: Meera Julio MD 06/22/18 1630 END OF REPORT DEPARTMENT OF PATHOLOGY, [address] [place] [address] Markus Navarrete M.D. Director [facility] # [id number] 8 Test Performed by: [facility] - [address] [address] 9 SEE RESULT BELOW Name: ALEXANDRA HERNANDEZ : [address]: Ney Javed NP Acct: [id number] Unit: [id number] AGE: 42 Location: [facility] Re06/16/18 SEX: F Status: REG REF SPEC: [id number] JAH: 06/16/18-[address]: Ney Javed NP REQ: [id number] RECD: 06/16/18 STATUS: RES _ SOURCE: STOOL SPDESC: ORDERED: Occult Bl, Diag/R, C. diff PCR/S, Stool Culture/R, Fecal Lactoferr/ R, O P: Giar/Crypt/R Procedure Result Reported Site Stool Culture PENDING Stool Specimen Description Final 06/16/18- 1302 ML Stool Color Brown Stool Form Nonformed Stool Consistency Pasty Shiga Toxin 1 2 PENDING C. difficile PCR PENDING Fecal Lactoferrin (Stool WBC) PENDING Stool Occult Blood (1) PENDING O P: Giardia/Cryptospor Screen PENDING * ML - Main Lab . END OF REPORT DEPARTMENT OF PATHOLOGY, [address] [place] [address] Markus Navarrete M.D. Director [facility] # [id number] 10 SEE RESULT BELOW Name: ALEXANDRA HERNANDEZ : [address]: Ney Javed NP Acct: [id number] Unit: [id number] AGE: 42 Location: [facility] Re06/16/18 SEX: F Status: REG REF SPEC: [id number] JAH: 06/16/[address]: Ney Javed NP REQ: [id number] RECD: 06/16/18 STATUS: COMP _ SOURCE: STOOL SPDESC: ORDERED: Occult Bl, Diag/R, C. diff PCR/S, Stool Culture/R, Fecal Lactoferr/ R, O P: Isaiah/Crypt/R Procedure Result Reported Site Stool Culture Final 06/19/18- 1337 ML Result No enteric pathogens isolated Testing for Salmonella, Shigella, Aeromonas, Plesiomonas, Yersinia and Campylobacter are included in a Stool Culture. Vibrio spp not routinely tested for in a stool culture. If testing is desired, please request specifically when placing test order. Sensitivities not routinely performed on stool isolates, as antibiotics may prolong the carriage rate of bacteria. Please contact the microbiology lab if sensitivities are required. Stool Specimen Description Final 06/16/18- 1302 ML Stool Color Brown Stool Form Nonformed Stool Consistency Pasty Shiga Toxin 1 2 Final 06/17/18- 1208 ML Organism 1 Negative Shiga Toxin 1 2 Immunochromatographic Assay CONTINUED ON NEXT PAGE DEPARTMENT OF PATHOLOGY, [address] [place] [address] Markus Navarrete M.D. Director [facility] # [id number] Patient: ALEXANDRA HERNANDEZ [id number] (Continued) Specimen: [id number] Collected: 06/16/18 Received: 06/16/18 (Continued) Procedure Result Reported Site Shiga Toxin 1 2 Final (continued) 06/17/18- 1208 C. difficile PCR Final 06/16/18- 1345 ML Organism 1 027 Presumptive NEGATIVE Organism 2 Toxigenic C.diff NEGATIVE Fecal Lactoferrin (Stool WBC) Final 06/16/18- 1318 ML Fecal Lactoferrin Negative by Immunoassay TEST LIMITATIONS: Assay detects elevated levels of lactoferrin released from fecal leukocytes as a marker of intestinal inflammation. The test may not be appropriate in immunocompromised persons. Fecal samples from breast fed infants should not be used with this assay. Stool Occult Blood (1) Final 06/16/18- 1309 ML Stool Occult Blood Negative O P: Giardia/Cryptospor Screen Final 06/16/18- 1318 ML Organism 1 Neg Cryptosporidium/Giardia Giardia and cryptosporidium antigen testing performed by enzyme immunoassay. If patient is immunocompromised or has traveled to or is from a developing country, a full ova and parasite exam with microscopic (OPMIC) is recommended. All samples will be held one month in case full ova and parasite testing is requested. Contact the Microbiology Department at [phone]. TEST LIMITATIONS: As with all diagnostic procedures, the results obtained should be used in conjunction with other clinical information available the physician, including confirmation by another method. Negative results can occur in samples containing antigen below lower limits of detection of the assay. One negative specimen does not rule out the possibility of a parasitic infection. To improve detection CONTINUED ON NEXT PAGE DEPARTMENT OF PATHOLOGY, [address] [place] [address] Markus Navarrete M.D. Director [facility] # [id number] Patient: AALIYAHALEXANDRA [id number] (Continued) Specimen: [id number] Collected: 06/16/18-649 Received: 06/16/18-1051 (Continued) Procedure Result Reported Site O P: Giardia/Cryptospor Screen Final (continued) 06/16/18- 1317 it is recommended that three specimens be collected on separate days over a period of not more than seven days. The use of colonic washes, aspirates or other diluted sample types has not been established and could affect the performance of the assay. Stool samples contaminated with an oily or particulate base (eg. Barium, mineral oil etc.) could interfere with the test and are not recommended. * - Main Lab . END OF REPORT DEPARTMENT OF PATHOLOGY, [address] [place] [address] Markus Navarrete M.D. Director [facility] # [id number] 11 A negative serum IgA endomysial antibody is usually seen in normal individuals, however a diagnosis of celiac disease, dermatitis herpetiformis and other gluten sensitive disorders cannot be completely excluded, as this test may be negative in a subset of individuals with these disorders. If the clinical suspicion for one of these disorders is high, recommend further testing for gluten sensitivity as indicated by the Celiac Disease Comprehensive [place] ([place] Test Unit Code CDCOM). In addition serum IgA endomysial antibody may also be negative in gluten-sensitive patients (with celiac disease, dermatitis herpetiformis or other gluten-sensitive disorders), who adhere to a strict gluten-free diet. ADDITIONAL INFORMATION This test has been modified from the diesel engine fitter's instructions. Its performance characteristics were determined by [facility] in a manner consistent with CLIA requirements. This test has not been cleared or approved by the U.S. Food and Drug Administration. Test Performed by: [facility] - [address] [address] 12 REFERENCE VALUE <20.0 (Negative) Test Performed by: [facility] - [address] [address] 13 REFERENCE VALUE <20.0 (Negative) 14 REFERENCE VALUE <6.0 (Negative) Test Performed by: [facility] - [facility] [address] [place] [address] 15 REFERENCE VALUE <4.0 (Negative) Test Performed by: [address] [address] 16 Because ethnic data is not always readily [...] 15-29 5 Kidney failure <15 (or dialysis) 17 ADDITIONAL INFORMATION This test was developed and its performance characteristics determined by [facility] in a manner consistent with CLIA requirements. This test has not been cleared or approved by the U.S. Food and Drug Administration. Test Performed by: [facility] - [facility] [address] [place] [address] 18 Because ethnic data is not always readily [...] 15-29 5 Kidney failure <15 (or dialysis) 19 [id number] 20 [id number] 21 Therapeutic target for the treatment of diabetes mellitus patients is <7% HBA1C, and in selective patients <6.0%. Please refer to [place] [employer] diabetic care guidelines for further information. 22 Desirable: <150 Borderline High: 150-199 High: 200-499 Very High: >500 23 Desirable: <200 Borderline High: 200-239 High: >239 24 Low: <40 Desirable: 40-60 High: >60 25 Desirable: <100 Near Optimal: 100-129 Borderline High: 130-159 High: 160-189 Very High: >189 26 SEE RESULT BELOW Name: AALIYAHALEXANDRA James : [address]: Ney Javed NP Acct: [id number] Unit: [id number] AGE: 42 Location: [facility] Re01/14/18 SEX: F Status: REG REF SPEC: [id number] JAH: 01/13/18-[address]: Ney Javed NP REQ: [id number] RECD: 01/14/18446 STATUS: SOUT _ ORDERED: TAB THIN LAYER COMMENTS: [id number] FINAL DIAGNOSIS Urine, voided: Negative for malignant cells. URINE VOID CLINICAL HISTORY Micro hematuria GROSS DESCRIPTION 50 mls cloudy straw colored fluid Signed (signature on file) Meera Julio MD 1916 END OF REPORT * ML=Testing performed at Main Lab DEPARTMENT OF PATHOLOGY, [address] [place] [address] Markus Navarrete M.D. Director [facility] # [id number] Procedures Date Code Description Status 08/13/2017 91142 EKG, at Least 12 Leads w/Interpretation and Report Completed Encounters Type Date Location Provider Dx Diagnosis Office Visit 08/31/2018 Main Office Luisana Thornton, J20.9 Acute bronchitis , 3:15p Elise, R.D. unspecified Office Visit 08/23/2018 Main Office Ney Javed, L65.9 Nonscarring hair 3:45p [employer]BINE [employer]IVER-[employer] loss, unspecified R53.83 Other fatigue Office Visit 06/14/2018 4:30p Main Office Ney Gibbs R10.84 Generalized Storm, COMBINE DRIVER-C abdominal pain R19.7 Diarrhea, unspecified F43.0 Acute stress reaction Office Visit 06/07/2018 10:30a [facility] Ney Gibbs K51.911 Ulcerative Storm, COMBINE DRIVER-C colitis, unspecified with rectal bleeding Office Visit 02/21/2018 9:30a Main Office Ney Gibbs Z00.00 Encntr for Storm, COMBINE DRIVER-C general adult medical exam w/o abnormal findings E55.9 Vitamin D deficiency, unspecified Office Visit 01/13/2018 11:00a Main Office Ney Gibbs R31.9 Hematuria, Storm, COMBINE DRIVER-C unspecified N81.89 Other female genital prolapse R63.1 Polydipsia Office Visit 11/12/2017 9:45a Main Office Bk Hernandez, A08.39 Other viral enteritis Office Visit 08/13/2017 9:45a Main Office Bk Hernandez, I95.1 Orthostatic MD hypotension Office Visit 06/16/2017 4:30p Main Office Luisana Thornton, N61.0 Mastitis without Elise, R.D. abscess Plan of Treatment 01/10/2019 - LUIS ANTONIO Benjamin-CR10.84 Generalized abdominal painComments: discussed elimination diet, try 4 to 6 weeks without gluten, can refer back to GI ...for now follow with Devin Shoemaker for functional egsyyhpyV57.10 Myalgia, unspecified siteNew Medication:Vitamin D (Ergocalciferol) 76302 Unit - take 1 capsule by mouth twice weekly for 4 weeksComments:labs obtained today, ? autoimmune dx ... will treat Vit D deficiency
[2019-01-12 13:24] LABS: ABS Basophils 0.1 10^3/ul (0-0.2); ABS Eosinophils 0.2 10^3/ul (0-0.6); ABS Lymphocytes 2.6 10^3/ul (1.0-4.8); ABS Monocytes 0.7 10^3/ul (0-0.8); ABS Neutrophils 9.9 10^3/ul (1.5-7.7); ABS Nucleated RBC 0 10^3/ul; Eosinophil % 1.3 %; Hematocrit 47 % (35-47); Hemoglobin 15.8 g/dl (12.0-16.0); Lymphocyte % 18.9 %; Mean Corpuscular HGB Conc 34 g/dl (31-36); Mean Corpuscular Hemoglobin 30 pg (27-31); Mean Corpuscular Volume 89 fL (80-97); Mean Platelet Volume 7.4 fL (7.4-10.4); Nucleated Red Blood Cells % 0; Platelet Count 481 10^3/ul (150-450); Red Blood Count 5.24 10^6/ul (4.00-5.40); Red Cell Distribution Width 13 % (10.5-15); White Blood Count 13.5 10^3/ul (3.5-10.8)
[2019-01-12 13:42] LABS: ALT 23 U/L (7-52); AST 17 U/L (13-39); Albumin 4.8 g/dL (3.2-5.2); Albumin/Globulin Ratio 1.3 (1-3); Alkaline Phosphatase 70 U/L (34-104); Anion Gap 11 mmol/L (2-11); BUN/Creatinine Ratio 20.8 (8-20); Blood Urea Nitrogen 16 mg/dL (6-24); C Reactive Protein 2.18 mg/L (<8.01); CO2 Carbon Dioxide 25 mmol/L (22-32); Calcium 10.1 mg/dL (8.6-10.3); Chloride 102 mmol/L (101-111); EGFR Non-African American 82.6 (>60); Globulin 3.6 g/dL (2-4); Glucose 100 mg/dL (70-100); Potassium 3.8 mmol/L (3.5-5.0); Sodium 138 mmol/L (135-145); Total Protein 8.4 g/dL (6.4-8.9)
--- NOTE | 2019-01-12 13:42 | ED ---
Abdominal Pain/Female - HPI Summary HPI Summary: Pt is a 43 y/o female who presents to the ED c/o abdominal pain. A few weeks ago she began to have epigastric pain with intermittent nausea. Last night the pain moved to her RLQ and worsened. The pain is now rated a 7/10 in severity and is made worse with movement and walking. Pt denies any vomiting, fever, dysuria, hematuria, or vaginal discharge. Pt denies any prior abdominal surgeries. PMHx ovarian cysts and Crohns. LNMP 5 days ago. - History of Current Complaint Chief Complaint: EDAbdPain Stated Complaint: LOWER RIGHT ABD PAIN/NAUSEA Time Seen by Provider: 01/12/19 13:36 Hx Obtained From: Patient Hx Last Menstrual Period: 10/30/17 Onset/Duration: Gradual Onset, Worse Since Timing: Constant Severity Initially: Mild Severity Currently: Moderate Pain Intensity: 7 Pain Scale Used: 0-10 Numeric Location: Discrete At: RLQ, Epigastric - began Radiates: No Aggravating Factor(s): Movement, Other: - walking Alleviating Factor(s): Nothing Associated Signs and Symptoms: Positive: Nausea. Negative: Fever, Urinary Symptoms, Vaginal Discharge, Vomiting Allergies/Adverse Reactions: Allergies Allergy/AdvReac Type Severity Reaction Status Date / Time latex Allergy Rash Verified 06/11/18 07:45 PMH/Surg Hx/FS Hx/Imm Hx Endocrine/Hematology History: Denies: Hx Diabetes Cardiovascular History: Denies: Hx Hypertension GI History: Reports: Hx Irritable Bowel History: Reports: Other Problems/Disorders - ovarian cysts Denies: Hx Renal Disease Sensory History: Denies: Hx Legally Blind, Hx Deafness Opthamlomology History: Denies: Hx Legally Blind Psychiatric History: Reports: Hx Anxiety, Hx Depression - hx SSRI use, on none at present - Surgical History Surgery Procedure, Year, and Place: t&a Infectious Disease History: No Infectious Disease History: Denies: Traveled Outside the [place] in Last 30 Days - Family History Known Family History: Positive: Hypertension Negative: Diabetes - Social History Alcohol Use: None Hx Substance Use: No Substance Use Type: Reports: None Hx Tobacco Use: No Smoking Status (MU): Never Smoked Tobacco Have You Smoked in the Last Year: No Review of Systems Negative: Fever Positive: Abdominal Pain, Nausea. Negative: Vomiting Negative: dysuria, discharge, hematuria All Other Systems Reviewed And Are Negative: Yes Physical Exam - Summary Physical Exam Summary: Appearance: Well appearing, no pain distress Skin: warm, dry, reflects adequate perfusion Head/face: normal Eyes: EOMI, ABDI ENT: mucous membranes moist Neck: supple, non-tender Respiratory: CTA, breath sounds present Cardiovascular: RRR, pulses symmetrical Abdomen: soft, mild RLQ and right-sided pelvic tenderness, no RUQ tenderness, no rebound or guarding Bowel Sounds: present Musculoskeletal: normal, strength/ROM intact Neuro: normal, sensory motor intact, A&Ox3 Triage Information Reviewed: Yes Vital Signs On Initial Exam: Initial Vitals Temp Pulse Resp BP Pulse Ox 98.3 F 93 17 109/83 96 01/12/19 11:29 01/12/19 11:29 01/12/19 11:29 01/12/19 11:29 01/12/19 11:29 Vital Signs Reviewed: Yes Diagnostics - Vital Signs Vital Signs Temp Pulse Resp BP Pulse Ox 01/12/19 13:12 98.1 F 93 19 113/85 98 01/12/19 11:29 98.3 F 93 17 109/83 96 - Laboratory Lab Results: Lab Results 01/12/19 Range/Units 12:56 WBC 13.5 H (3.5-10.8) 10^3/ul RBC 5.24 (4.00-5.40) 10^6/ul Hgb 15.8 (12.0-16.0) g/dl Hct 47 (35-47) % MCV 89 (80-97) fL MCH 30 (27-31) pg MCHC 34 (31-36) g/dl RDW 13 (10.5-15) % Plt Count 481 H D (150-450) 10^3/ul MPV 7.4 (7.4-10.4) fL Neut % (Auto) 73.7 % Lymph % (Auto) 18.9 % [place] % (Auto) 5.0 % Eos % (Auto) 1.3 % Baso % (Auto) 1.1 % Absolute Neuts (auto) 9.9 H (1.5-7.7) 10^3/ul Absolute Lymphs (auto) 2.6 (1.0-4.8) 10^3/ul Absolute Monos (auto) 0.7 (0-0.8) 10^3/ul Absolute Eos (auto) 0.2 (0-0.6) 10^3/ul Absolute Basos (auto) 0.1 (0-0.2) 10^3/ul Absolute Nucleated RBC 0 10^3/ul Nucleated RBC % 0 Result Diagrams: 01/12/19 12:56 01/12/19 12:56 Lab Statement: Any lab studies that have been ordered have been reviewed, and results considered in the medical decision making process. - CT CT A/P CT Interpretation Completed By: Radiologist Summary of CT Findings: 1. NORMAL APPENDIX. 2. FATTY INFILTRATION OF THE LIVER. 3. SPONDYLOLYSIS WITH SPONDYLOLISTHESIS AT L5-S1. ED physician reviewed radiology report. Re-Evaluation - Re-Evaluation First Eval Re-Evaluation Time: 15:10 Change: Unchanged Comment: Pt denied pain medications and US. Abdominal Pain Fem Course/Dx - Course Course Of Treatment: Nurse's notes reviewed. Patient record had history of Crohn's disease which she states has since been disproven by her GI doctor. She has pain in her right lower quadrant but normal appendix on CT scan there is no ovarian pathology noted. She did have an ultrasound earlier this week and refused similar testing here today. CRP is nonelevated. But her white blood cell count is elevated as are her platelets. She has no rebound guarding or peritoneal signs. She was unable to provide urine for urinalysis. She has no fever. She was treated with Tylenol and hydration which helped her symptoms. She refused anything stronger. She'll follow up outpatient closely with her primary care physician and also GI as needed. - Diagnoses Differential Diagnosis: Positive: Appendicitis, Bowel Obstruction, Constipation , Diverticulitis, Irritable Bowel Syndrome, Ovarian Cyst, Pancreatitis, Urinary Tract Infection Provider Diagnoses: RLQ abdominal pain, Nausea, History of IBS Discharge - Sign-Out/Discharge Documenting (check all that apply): Patient Departure - Discharge Patient Received Moderate/Deep Sedation with Procedure: No - Discharge Plan Condition: Improved Disposition: HOME Prescriptions: Hyoscyamine Sulfate [Levsin] 0.125 mg PO Q4H PRN #30 tablet PRN Reason: abdominal cramping Metoclopramide TAB* [Reglan TAB*] 10 mg PO Q6H PRN #40 tab PRN Reason: Nausea Patient Education Materials: Irritable Bowel Syndrome (ED), Acute Abdominal Pain (ED) Referrals: Nish Martinez MD [Medical Doctor] - Ney Javed [employer] 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 Return with fever, increased pain, repetitive vomiting, worse, new symptoms or other concerns as discussed. - Billing Disposition and Condition Condition: IMPROVED Disposition: Home - Attestation Statements Document Initiated by Scribe: Yes Documenting Scribe: Bernarda Walker Provider For Whom Priyanka is Documenting (Include Credential): Stephane Maddox MD Scribe Attestation: Bernarda Aleman, scribed for Stephane Maddox MD on 01/12/19 at 1725. Scribe Documentation Reviewed: Yes Provider Attestation: The documentation as recorded by the Bernarda mata accurately reflects the service I personally performed and the decisions made by , Stephane Maddox MD Status of Scribe Document: Viewed
[2019-01-12] MEDS ORDERED: NS 0.9% 1000 ML** 1,000 ML IV ONE (13:43)
[2019-01-12] MEDS ORDERED: Morphine VIAL* 4 MG/ML VIAL (1 ml vial) IV ONE (13:43)
[2019-01-12] MEDS ORDERED: Ondansetron INJ* 2 MG/ML VIAL IV ONE (13:43)
[2019-01-12 14:04] LABS: HCG Pregnancy < 0.60 mIU/mL
[2019-01-12] MEDS ORDERED: Iohexol 300* (CONTRAST) 10 ML SDV IV ONE (14:11)
[2019-01-12] MEDS ORDERED: Acetaminophen TAB* 325 MG PO ONE (14:40)
[2019-01-12 15:39] VITALS: BP 112/77
== END 2019-01-12 15:38 | disposition home or self-care (01) ==
LOC: ED 11:20
DX: R10.31 Right lower quadrant pain (principal); R11.0 Nausea; K58.9 Irritable bowel syndrome, unspecified; F32.9 Major depressive disorder, single episode, unspecified; F41.9 Anxiety disorder, unspecified; K42.9 Umbilical hernia without obstruction or gangrene; K76.0 Fatty (change of) liver, not elsewhere classified; M43.17 Spondylolisthesis, lumbosacral region
CPT/HCPCS: 36415; 74177; 80053; 83605; 83690; 84702; 85025; 86140; 96374; 99283; A9270-GY; J2270; J2405; Q9967

== ENCOUNTER → 2019-03-30 15:42 | Emergency (ER) | payer OTHER ==
--- NOTE | 2019-03-30 16:01 | ED ---
Dizziness - HPI Summary HPI Summary: Pt is a 43 y/o F presenting to the ED with a chief complaint of dizziness, initially onset a couple of months ago. She has episodes of dizziness accompanied by varying symptoms such as fatigue, phantom smells, and neck pain, but this episode onset approximately three days ago just with dizziness. About one hour ago, she became faint, very dizzy, developed paresthesia on her lips as well as slight diplopia, feeling like someone is pressing down on her head, and L-sided neck pain. - History Of Current Complaint Chief Complaint: EDNeurologicalDeficit Stated Complaint: DIZZY, BLURRED VISION PER PT Hx Obtained From: Patient Onset/Duration: Still Present, Gradually Timing: Hours Severity Initially: Moderate Severity Currently: Severe Character: Lightheaded, Dizzy Aggravating Factor(s): Other - moving head Alleviating Factor(s): Nothing Associated Signs And Symptoms: Positive: Visual Changes - Allergies/Home Medications Allergies/Adverse Reactions: Allergies Allergy/AdvReac Type Severity Reaction Status Date / Time adhesive Allergy Rash Verified 03/30/19 16:11 latex Allergy Rash Verified 03/03/19 15:26 PMH/Surg Hx/FS Hx/Imm Hx Previously Healthy: Yes Endocrine/Hematology History: Denies: Hx Diabetes Cardiovascular History: Denies: Hx Hypertension, Hx Pacemaker/ICD GI History: Reports: Hx Crohn's Disease, Hx Irritable Bowel History: Reports: Other Problems/Disorders - ovarian cysts Denies: Hx Renal Disease Sensory History: Denies: Hx Legally Blind, Hx Deafness, Hx Hearing Aid Opthamlomology History: Denies: Hx Legally Blind Psychiatric History: Reports: Hx Anxiety, Hx Depression - hx SSRI use, on none at present Denies: Hx Panic Disorder - Surgical History Surgery Procedure, Year, and Place: t&a-PT IS DIFFICULT STICK NEEDS US GUIDED INJECTION MAIN CAMPUS ONLY Infectious Disease History: No Infectious Disease History: Denies: Traveled Outside the [place] in Last 30 Days - Family History Known Family History: Positive: Hypertension Negative: Diabetes - Social History Alcohol Use: None Hx Substance Use: No Substance Use Type: Reports: None Hx Tobacco Use: No Smoking Status (MU): Never Smoked Tobacco Have You Smoked in the Last Year: No Review of Systems Positive: Fatigue Positive: Diplopia Positive: Other - phantom smells, neck pain Neurological: Other - dizziness, lightheadedness Positive: Headache - "like someone is pushing down on my head", Paresthesia All Other Systems Reviewed And Are Negative: Yes Physical Exam - Summary Physical Exam Summary: Appearance: The patient is well-nourished in no acute distress and in no acute pain. Skin: The skin is warm and dry and skin color reflects adequate perfusion. HEENT: The head is normocephalic and atraumatic. The pupils are equal and reactive. The conjunctivae are clear and without drainage. Nares are patent and without drainage. Mouth reveals moist mucous membranes and the throat is without erythema and exudate. The external ears are intact. The ear canals are patent and without drainage. The tympanic membranes are intact. Neck: The neck is supple with full range of motion and non-tender. There are no carotid bruits. There is no neck vein distension. Respiratory: Chest is non-tender. Lungs are clear to auscultation and breath sounds are symmetrical and equal. Cardiovascular: Heart is regular rate and rhythm. There is no murmur or rub auscultated. There is no peripheral edema and pulses are symmetrical and equal. Abdomen: The abdomen is soft and non-tender. There are normal bowel sounds heard in all four quadrants and there is no organomegaly palpated. Musculoskeletal: There is no back tenderness noted. Extremities are non-tender with full range of motion. There is good capillary refill. There is no peripheral edema or calf tenderness elicited. Neurological: Patient is alert and oriented to person, place and time. The patient has symmetrical motor strength in all four extremities. Cranial nerves are grossly intact. Deep tendon reflexes are symmetrical and equal in all four extremities. Psychiatric: The patient has an appropriate affect and does not exhibit any anxiety or depression. Triage Information Reviewed: Yes Vital Signs On Initial Exam: Initial Vitals Temp Pulse Resp BP Pulse Ox 97.3 F 94 16 143/95 98 03/30/19 15:49 03/30/19 15:49 03/30/19 15:49 03/30/19 15:49 03/30/19 15:49 Vital Signs Reviewed: Yes Diagnostics - Vital Signs Vital Signs Temp Pulse Resp BP Pulse Ox 03/30/19 15:49 97.3 F 94 16 143/95 98 - Laboratory Result Diagrams: 03/30/19 16:35 03/30/19 16:35 Lab Statement: Any lab studies that have been ordered have been reviewed, and results considered in the medical decision making process. - EKG 1607 Cardiac Rate: NL - 98bpm EKG Rhythm: Sinus Rhythm ST Segment: Non-Specific Ectopy: None EKG Comparison: Other Summary of EKG Findings: EKG at 1607 shows NSR at 98bpm with nonspecific ST changes in comparison with 11/13/17, no STEMI. Dizzy Course/Dx - Course Course Of Treatment: Ms. Hernandez presented with a complaint of feeling off balance/dizzy for a couple of days and then starting with diplopia today. She is recently encountered a lot of medical problems and has been getting worked up through Dr. Héctor Alberto. She's had a recent MRI of her neck as well as her brain. She was nontoxic in appearance with stable vitals with a somewhat constricted affect. Her extraocular muscles worked fine and I could not find any focal neurological issue. Because of the length of time and the vagueness of the symptomatology I did not think we needed a code soni called but I spoke with Dr. Quiroz and he came to the department to evaluate her. He felt that this was not likely to be neurological but more functional as well as partially migrainous. He recommended daily magnesium and supplementing B12 and follow-up with PCP. - Diagnoses Provider Diagnoses: Diplopia Discharge - Sign-Out/Discharge Documenting (check all that apply): Patient Departure Patient Received Moderate/Deep Sedation with Procedure: No - Discharge Plan Condition: Stable Disposition: HOME Referrals: Héctor Alberto MD [Primary Care Provider] - Additional Instructions: Please follow up with Dr. Alberto within the next 2-3 days. Take 400mg Magnesium daily, as well as 500mg Vitamin B12 daily, as per Dr. Quiroz 's recommendation. Return to the emergency department with any new or worsening symptoms. - Billing Disposition and Condition Condition: STABLE Disposition: Home - Attestation Statements Document Initiated by Scribe: Yes Documenting Scribe: Candace Garcia Provider For Whom Priyanka is Documenting (Include Credential): Saúl Espinosa MD. Scribe Attestation: Candace Aleman scribed for Saúl Espinosa MD. on 03/30/19 at 2027. Scribe Documentation Reviewed: Yes Provider Attestation: The documentation as recorded by the Candace mata accurately reflects the service I personally performed and the decisions made by me, Saúl Espinosa MD. Status of Scribe Document: Viewed Consult Consult: 1610 - I spoke with Dr. Quiroz about the pt's present condition who agreed to come and see the pt.
--- OUTSIDE RECORDS SUMMARY | 2019-03-30 16:20 | XMS REPORT | Continuity of Care Document ---
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 Stoppe End: Unknown smoker 15+ years ago Recreational Drug Use Denies Drug Use Enjoy Exercising Enjoys exercising not getting much exercise Allergies, Adverse Reactions, Alerts Description No Known Drug Allergies Medications Active Medications SIG Qnty Indications Ordering Date Provider Gabapentin take one capsule 60caps R51 Ney Gibbs 03/10/2019 300mg Capsules by mouth before [employer]-C bed for 3 nights then take one pill two times daily Alprazolam 1 by mouth twice 30tabs F41.9 Ney Gibbs 03/07/2019 0.25mg Tablets daily if needed TORY Javed Medrol take daily by 21units R51 Ney Gibbs 03/07/2019 4mg TBPK mouth per package TORY Javed directions Doxycycline 1 by mouth twice 42caps R51 Ney Gibbs 03/07/2019 Monohydrate daily for 21 days TONY JavedC 100mg Capsules Omeprazole 1 by mouth every R10.13 Unknown 02/21/[address] Cyclobenzaprine HCL take 1 to 2 30tabs Star Mcallister 02/21/2019 5mg tablets by mouth M.D. Tablets up to three times a day as needed for muscle spasm - may cause drowsiness Levocetirizine 1 by mouth every 30tabs J30.9 Star Mcallister, 02/08/2019 Dihydrochloride day M.D. 5mg Tablets Proctozone-HC apply to 30gm K51.911 Ney Gibbs 06/07/2018 2.5% Cream hemorrhoids 3 - 4 TORY Javed times daily if needed [place] 3 Luisana Thornton, 06/16/2017 Capsules M.D., R.D. Multi Vitamin Daily 1 by mouth every Unknown day Tablets Vitamin D 1 by mouth every Unknown 1000Unit day Tablets Zyrtec Allergy 1 by mouth every Unknown 10mg day Capsules History Medications Diazepam take 1/2 to 1 20tabs Star Mcallister 02/21/2019 - 2mg Tablets tablets by mouth M.D. 03/07/2019 four times a day as needed maximum daily dose=4 Ranitidine HCL take one tablet 60tabs R10.13 Star Mcallister, 02/08/2019 - 150mg by mouth twice a M.D. 02/21/2019 Tablets day if needed Azithromycin 2 by mouth every 6tabs J20.9 Star Mcallister, 01/19/2019 - 250mg day day 1, then M.D. 01/24/2019 Tablets 1 by mouth every day days 2-5 Prednisone 2 by mouth every 20tabs J20.9 Star Mcallister, 01/19/2019 - 10mg Tablets day x 5 days, 1 M.D. 02/08/2019 po qd x 5 days Vitamin D take 1 capsule 8caps R51 Ney Gibbs 01/10/2019 - (Ergocalciferol) by mouth twice TORY Javed 02/21/2019 weekly for 4 [id number] Capsules weeks Prednisone 2 by mouth every 10tabs J20.9 Luisana Thornton, 08/31/2018 - 20mg Tablets day for 5 days Nora Olivares.DAnthony 01/19/2019 Ventolin HFA inhale two puffs 54units J20.9 Luisana Thornton, 08/31/2018 - by mouth tid to Elise R.DAnthony 03/10/2019 108(90Base) mcg/Act qid Aerosol Azithromycin 2 by mouth today 6tabs J20.9 Luisana Thornton, 08/31/2018 - 250mg then 1 by mouth Nora Olivares.Jose L 01/10/2019 Tablets daily for 4 days Alprazolam take 1/2 to 1 14tabs F43.0 Chemashilo RAnthony 06/14/2018 - 0.25mg tab twice daily TORY Javed 08/23/2018 Tablets if needed for anxiety Vitamin D take 1 capsule 8caps Chemashilo RAnthony 01/14/2018 - (Ergocalciferol) by mouth twice TORY Javed 06/07/2018 weekly for 4 [id number] Capsules weeks No Active Medications Unknown 06/16/2017 - 06/16/2017 Vitamins Luisana Thornton, 06/16/2017 - Elise R.DAnthony 02/21/2018 Tablets Cephalexin 1 by mouth three 30caps N61.0 Luisana Thornton, 06/16/2017 - 500mg times a day for M.Jose L, R.DAnthony 08/13/2017 Capsules 7 days Immunizations CPT Code Status Date Vaccine Lot # [id number] Given 08/24/2018 Influenza Virus Vaccine, Quadrivalent, 3 Yr > Quad, Preserv Free [id number] Given 11/30/2017 Influenza Virus Vaccine, Quadrivalent, 3 Yr > Quad, Preserv Free Vital Signs Date Vital Result Comment 03/10/2019 3:17pm Weight 153.00 lb Weight 69.401 kg BP Systolic 100 mmHg BP Diastolic 64 mmHg Heart Rate 92 /min Body Temperature 97.9 F Respiratory Rate 16 /min 03/07/2019 9:28am Weight 152.00 lb Weight 68.947 kg BP Systolic 110 mmHg BP Diastolic 70 mmHg Heart Rate 88 /min Body Temperature 98.2 F Respiratory Rate 16 /min 02/24/2019 4:26pm Weight 154.00 lb Weight 69.854 kg BP Systolic 118 mmHg BP Diastolic 68 mmHg Heart Rate 68 /min Body Temperature 97.8 F Respiratory Rate 16 /min 02/21/2019 2:12pm Weight 156.38 lb Weight 70.932 kg BP Systolic 120 mmHg BP Diastolic 80 mmHg Heart Rate 84 /min Body Temperature 98.0 F Respiratory Rate 16 /min O2 % BldC Oximetry 98 % 02/08/2019 11:14am Weight 156.00 lb Weight 70.762 kg BP Systolic 102 mmHg BP Diastolic 62 mmHg Heart Rate 68 /min Body Temperature 97.6 F Respiratory Rate 16 /min 01/24/2019 10:29am Weight 157.00 lb Weight 71.215 kg BP Systolic 102 mmHg BP Diastolic 72 mmHg Heart Rate 86 /min Body Temperature 97.3 F O2 % BldC Oximetry 99 % 01/19/2019 9:35am Weight 157.00 lb Weight 71.215 kg BP Systolic 108 mmHg BP Diastolic 66 mmHg Heart Rate 98 /min Body Temperature 97.4 F O2 % BldC Oximetry 96 % 01/10/2019 1:48pm Weight 161.25 lb Weight 73.143 kg BP Systolic 112 mmHg BP Diastolic 64 mmHg Heart Rate 80 /min Body Temperature 98.6 F Respiratory Rate 16 /min Last Menstrual Period [id number] O2 % BldC Oximetry 98 % 08/31/2018 [...] Mass Index) 26.8 kg/m2 Last Menstrual Period 4406818 O2 % BldC Oximetry 98 % 01/13/2018 [...] Test Result H/L Range Note Laboratory test [facility] Clotest SEE RESULT 1, 2 finding 9 [phone] BELOW Laboratory test [facility] Surgical SEE RESULT 3, 4 finding 9 [phone] Pathology BELOW Toxoplasma Igg [facility] Toxoplasma IgG Negative Negative & Igm Abs 9 [phone] Antibody Toxoplasma IgG Antibody Index <3 IU/mL 5 Toxoplasma IgM Antibody Negative Negative 6 Comp Metabolic Panel 03/07/2019 [facility] Sodium 139 mmol/L N 135-145 [phone] Potassium 4.4 mmol/L N 3.5-5.0 Chloride 106 mmol/L N 101-111 Co2 Carbon Dioxide 25 mmol/L N 22-32 Anion Gap 8 mmol/L N 2-11 Glucose 113 mg/dL High 70-100 Blood Urea Nitrogen 13 mg/dL N 6-24 Creatinine 0.72 mg/dL N 0.51-0.95 BUN/Creatinine Ratio 18.1 N 8-20 Calcium 9.9 mg/dL N 8.6-10.3 Total Protein 7.2 g/dL N 6.4-8.9 Albumin 4.6 g/dL N 3.2-5.2 Globulin 2.6 g/dL N 2-4 Albumin/Globulin Ratio 1.8 N 1-3 Total Bilirubin 0.40 mg/dL N 0.2-1.0 Alkaline Phosphatase 52 U/L N 34-104 Alt 13 U/L N 7-52 Ast 12 U/L Low 13-39 Egfr Non- 89.3 >60 Egfr 108.0 >60 7 Laboratory test 03/07/2019 [facility] Magnesium 2.0 mg/dL N 1.9-2.7 8 finding [phone] Erythrocyte Sed Rate 3 mm/Hr N 0-19 9 Laboratory 03/07/2019 [facility] Aso Negative < 200 Iu/mL 10 test finding [phone] (Antistreptolysin IU/mL O) Titer West Nile Igg 03/07/2019 [facility] West Nile Virus IgG Negative Negative And Igm [phone] West Nile Virus IgM Negative Negative West Nile Serum Interpretation See Comment 11 Laboratory test 02/25/2019 [facility] C Reactive 1.21 mg/L N <8.01 finding [phone] Protein CBC Auto Diff 02/25/2019 [facility] White Blood 8.8 N 3.5-10.8 [phone] Count 10^3/uL Red Blood Count 4.66 10^6/uL N 3.70-4.87 Hemoglobin 13.9 g/dL N 12.0-16.0 Hematocrit 42 % High 33-41 Mean Corpuscular Volume 90 fL N 80-97 Mean Corpuscular Hemoglobin 30 pg N 27-31 Mean Corpuscular HGB Conc 33 g/dL N 31-36 Red Cell Distribution Width 14 % N 10.5-15 Platelet Count 424 10^3/uL N 150-450 Mean Platelet Volume 7.4 fL N 7.4-10.4 Abs Neutrophils 4.9 10^3/uL N 1.5-7.7 Abs Lymphocytes 3.0 10^3/uL N 1.0-4.8 Abs Monocytes 0.5 10^3/uL N 0-0.8 Abs Eosinophils 0.3 10^3/uL N 0-0.6 Abs Basophils 0.1 10^3/uL N 0-0.2 Abs Nucleated RBC 0 10^3/uL Granulocyte % 55.9 % Lymphocyte % 34.3 % Monocyte % 5.7 % Eosinophil % 3.0 % Basophil % 1.1 % Nucleated Red Blood Cells % 0.1 Laboratory 02/25/2019 [facility] Erythrocyte Sed 4 mm /Hr N 0-20 12 test finding [phone] Rate Laboratory 02/21/2019 [facility] Immunoglobulin A 384 Abnormal 61 - 13 test finding [phone] (Iga) mg/dL 356 Anca Panel 02/21/2019 [facility] Myeloperoxidase AB < 0.2 U 14 For [phone] Vasculitis Proteinase 3 AB < 0.2 U 15 Arthritis Panel 02/21/2019 [facility] Uric Acid 4.8 mg/dL N 2.3-6.6 [phone] Rheumatoid Factor < 10 IU/mL N <15 Erythrocyte Sed Rate 3 mm/Hr N 0-20 16 Anti-Nuclear Antibody 0.4 U 17 Cyclic Citrullinated Peptide <15.6 U 18 Interpretation See Comment 19 Laboratory test 02/21/2019 [facility] C Reactive 1.64 mg/L N <8.01 finding [phone] Protein Lyme Western Blot 02/21/2019 [facility] Lyme Disease Negative Negative [phone] IgG Ab WB Lyme Disease IgG Bands Present p45,p41,p39 kDa Lyme Disease IgM Ab WB Negative Negative Lyme Disease IgM Bands Present No bands detecte <SEE NOTE> kDa 20 Lyme Disease Interpretation See Comment 21 Laboratory test 02/21/2019 [facility] Complement C4 21 mg/dL 14 - 22 finding [phone] 40 Tick-Borne 02/21/2019 [facility] Anaplasma <1:64 < 1:64 23 Disease AB [phone] phagocytophilium titer Panel Babesiosis Evaluation <1:64 titer <1:64 24 Ehrlichia chaffeensis IgG AB <1:64 titer <1:64 25 Lyme Disease Serology Negative Negative 26 Laboratory test 02/21/2019 [facility] Creatine 60 U/ L N 10-223 finding [phone] Kinase(CK) Aldolase 6.4 U/L <7.7 27 Comp Metabolic Panel 02/15/2019 [facility] Sodium 138 mmol/L N 135-145 [phone] Potassium 4.5 mmol/L N 3.5-5.0 Chloride 105 mmol/L N 101-111 Co2 Carbon Dioxide 28 mmol/L N 22-32 Anion Gap 5 mmol/L N 2-11 Glucose 110 mg/dL High 70-100 Blood Urea Nitrogen 13 mg/dL N 6-24 Creatinine 0.76 mg/dL N 0.51-0.95 BUN/Creatinine Ratio 17.1 N 8-20 Calcium 9.6 mg/dL N 8.6-10.3 Total Protein 7.2 g/dL N 6.4-8.9 Albumin 4.7 g/dL N 3.2-5.2 Globulin 2.5 g/dL N 2-4 Albumin/Globulin Ratio 1.9 N 1-3 Total Bilirubin 0.30 mg/dL N 0.2-1.0 Alkaline Phosphatase 55 U/L N 34-104 Alt 23 U/L N 7-52 Ast 17 U/L N 13-39 Egfr Non- 83.9 >60 Egfr 101.5 >60 28 Liver Function 02/15/2019 [facility] Direct 0.10 mg/ dL N 0.03-0.18 Panel [phone] Bilirubin Indirect Bilirubin 0.2 mg/dL Low 0.3-1.0 Laboratory test 02/15/2019 [facility] Amylase 43 U/L N 29-103 finding [phone] Lipase 35 U/L N 11.0-82.0 C Reactive Protein 2.71 mg/L N <8.01 CBC No Diff 02/15/2019 [facility] White Blood 9.3 10^ 3/uL N 3.5-10.8 [phone] Count Red Blood Count 4.67 10^6/uL N 3.70-4.87 Hemoglobin 14.3 g/dL N 12.0-16.0 Hematocrit 42 % High 33-41 Mean Corpuscular Volume 91 fL N 80-97 Mean Corpuscular Hemoglobin 31 pg N 27-31 Mean Corpuscular HGB Conc 34 g/dL N 31-36 Red Cell Distribution Width 14 % N 10.5-15 Platelet Count 391 10^3/uL N 150-450 Mean Platelet Volume 7.8 fL N 7.4-10.4 O P: 02/04/2019 [facility] O P: SEE 29 Giardia/Cryptospor [phone] Giardia/Cryptospor RESULT Screen Screen BELOW CBC Auto Diff 01/19/2019 [facility] White Blood Count 8.3 N 3. [phone] 10^3/uL 5- 10 .8 Red Blood Count 4.87 10^6/uL N 4.00-5.40 Hemoglobin 14.9 g/dL N 12.0-16.0 Hematocrit 43 % N 35-47 Mean Corpuscular Volume 89 fL N 80-97 Mean Corpuscular Hemoglobin 31 pg N 27-31 Mean Corpuscular HGB Conc 34 g/dL N 31-36 Red Cell Distribution Width 14 % N 10.5-15 Platelet Count 433 10^3/uL N 150-450 Mean Platelet Volume 7.7 fL N 7.4-10.4 Abs Neutrophils 5.1 10^3/uL N 1.5-7.7 Abs Lymphocytes 1.7 10^3/uL N 1.0-4.8 Abs Monocytes 0.9 10^3/uL High 0-0.8 Abs Eosinophils 0.5 10^3/uL N 0-0.6 Abs Basophils 0.1 10^3/uL N 0-0.2 Abs Nucleated RBC 0 10^3/uL Granulocyte % 61.4 % Lymphocyte % 21.1 % Monocyte % 10.8 % Eosinophil % 5.6 % Basophil % 1.1 % Nucleated Red Blood Cells % 0 Laboratory test 01/19/2019 [facility] Copper, 1.17 g/mL 0.75-1.45 30 finding [phone] Serum Zinc Serum 0.87 g/mL 0.66-1.10 31 Heavy Metal Blool 01/19/2019 [facility] Arsenic <1 ng /mL 0-12 32 [phone] Lead <1.0 g/dL 0.0-4.9 33 Mercury <1 ng/mL 0-9 34 Cadmium <0.2 ng/mL 0.0-4.[address] [facility] [place] [address] [facility] OPAL Guardian First Name ALEXANDRA Ramirez Guardian Last Name AALIYAH Venous/Capillary Heavy Metals Venous Patient Race WHITE Submitting Laboratory Phone [phone] Laboratory test 01/19/2019 [facility] Hemoglobin A1c 5.8 % High 4.0-5.6 37 finding [phone] (Glyco HGB) CRP High Sensitivity 2.08 mg/L High <2.00 TSH (Thyroid Stimulating Horm) 1.82 mcIU/mL N 0.34-5.60 Free T4 1.00 ng/dL N 0.61-1.12 Ferritin 71.0 ng/mL N 11-307 Thyroperoxidase AB 0.97 IU/mL N <9 Insulin Level 7.5 mcIU/mL N 2.0-16.0 Thyroglobulin Antibody II 58.0 IU/mL High <4.0 Thyroxine 6.94 g/dL N 6.09-12.23 Laboratory test 01/12/2019 [facility] Lipase 29 U/L N 11.0-82.0 finding [phone] C Reactive Protein 2.18 mg/L N <8.01 HCG < 0.60 mIU/mL 38 Comp Metabolic Panel 01/12/2019 [facility] Sodium 138 mmol/L N 135-145 [phone] Potassium 3.8 mmol/L N 3.5-5.0 Chloride 102 mmol/L N 101-111 Co2 Carbon Dioxide 25 mmol/L N 22-32 Anion Gap 11 mmol/L N 2-11 Glucose 100 mg/dL N 70-100 Blood Urea Nitrogen 16 mg/dL N 6-24 Creatinine 0.77 mg/dL N 0.51-0.95 BUN/Creatinine Ratio 20.8 High 8-20 Calcium 10.1 mg/dL N 8.6-10.3 Total Protein 8.4 g/dL N 6.4-8.9 Albumin 4.8 g/dL N 3.2-5.2 Globulin 3.6 g/dL N 2-4 Albumin/Globulin Ratio 1.3 N 1-3 Total Bilirubin 0.50 mg/dL N 0.2-1.0 Alkaline Phosphatase 70 U/L N 34-104 Alt 23 U/L N 7-52 Ast 17 U/L N 13-39 Egfr Non- 82.6 >60 Egfr 100.0 >60 39 Laboratory test 01/12/2019 [facility] Lactic Acid 0.7 mmol/L N 0.5-2.0 40 finding [phone] CBC Auto Diff 01/12/2019 [facility] White Blood 13.5 High 3.5-10.8 [phone] Count 10^3/uL Red Blood Count 5.24 10^6/uL N 4.00-5.40 Hemoglobin 15.8 g/dL N 12.0-16.0 Hematocrit 47 % N 35-47 Mean Corpuscular Volume 89 fL N 80-97 Mean Corpuscular Hemoglobin 30 pg N 27-31 Mean Corpuscular HGB Conc 34 g/dL N 31-36 Red Cell Distribution Width 13 % N 10.5-15 Platelet Count 481 10^3/uL High 150-450 Mean Platelet Volume 7.4 fL N 7.4-10.4 Abs Neutrophils 9.9 10^3/uL High 1.5-7.7 Abs Lymphocytes 2.6 10^3/uL N 1.0-4.8 Abs Monocytes 0.7 10^3/uL N 0-0.8 Abs Eosinophils 0.2 10^3/uL N 0-0.6 Abs Basophils 0.1 10^3/uL N 0-0.2 Abs Nucleated RBC 0 10^3/uL Granulocyte % 73.7 % Lymphocyte % 18.9 % Monocyte % 5.0 % Eosinophil % 1.3 % Basophil % 1.1 % Nucleated Red Blood Cells % 0 Laboratory test 01/10/2019 [facility] Anti Ssa/Ro < 0.2 U 41 finding [phone] Anti SSB LA <0.2 U 42 C Reactive Protein 3.43 mg/L N <8.01 43 Cyclic Citrullinated Pep Igg <15.6 U 44 Creatine Kinase(CK) 58 U/L N 10-223 45 Hla B27 01/10/2019 [facility] Hla B27 Negative 46 [phone] Hla B27 Interp See Comment 47 Laboratory test 01/10/2019 [facility] Rheumatoid < 10 IU/mL N <15 48 finding [phone] Factor Anti Nuclear Antibody 0.4 U 49 Lyme Western 12/16/2018 [facility] Lyme Disease Negative Negative Blot [phone] IgG Ab WB Lyme Disease IgG Bands Present p41,p39 kDa Lyme Disease IgM Ab WB Negative Negative Lyme Disease IgM Bands Present No bands detecte <SEE NOTE> kDa 50 Lyme Disease Interpretation See Comment 51 Laboratory test 12/16/2018 [facility] HCG < 0.60 mIU/mL 52 finding [phone] TSH (Thyroid Stim Horm) 1.13 mcIU/mL N 0.34-5.60 Free T4 (Free Thyroxine) 0.69 ng/dL N 0.61-1.12 Vitamin B12 536 pg/mL N 180-914 53 Vitamin D Total 25(Oh) 28.7 ng/mL N 20-50 Basic Metabolic 12/16/2018 [facility] Sodium 138 mmol /L N 135-145 Panel [phone] Potassium 4.4 mmol/L N 3.5-5.0 Chloride 105 mmol/L N 101-111 Co2 Carbon Dioxide 26 mmol/L N 22-32 Anion Gap 7 mmol/L N 2-11 Glucose 115 mg/dL High 70-100 Blood Urea Nitrogen 16 mg/dL N 6-24 Creatinine 0.86 mg/dL N 0.51-0.95 BUN/Creatinine Ratio 18.6 N 8-20 Calcium 9.7 mg/dL N 8.6-10.3 Egfr Non- 72.7 >60 Egfr 88.0 >60 54 CBC Auto Diff 12/16/2018 [facility] White Blood 8.9 10^3/uL N 3.5-10.8 [phone] Count Red Blood Count 4.77 10^6/uL N [...] Red Blood Cells % 0.1 Laboratory test 08/23/2018 [facility] TSH (Thyroid 2.20 mcIU/mL N 0.34-5.60 55 finding [phone] Stim Horm) CBC Auto Diff 08/23/2018 [facility] White Blood 8.9 10^3/uL N 3.5-10.8 [phone] Count Red Blood Count 4.49 10^6/uL N [...] Blood Cells % 0.2 Laboratory test 06/21/2018 [facility] Surgical SEE RESULT 56 finding [phone] Interface BELOW Order Laboratory test 06/16/2018 [facility] Helico Pylori Negative Negative 57 finding [phone] Antigen- Stool Stool Occult 06/16/2018 [facility] Stool Occult SEE RESULT 58 Blood Diag [phone] Blood, Diag BELOW Stool Panel 06/16/2018 [facility] C Difficile SEE RESULT 59 (CMC) [phone] PCR BELOW Laboratory test 06/11/2018 [facility] Anti Negative Negative 60 finding [phone] Endomysial Antibody Anti Gliadin 06/11/2018 [facility] Gliadin IgG <10.0 U 61 Igg And Iga AB [phone] Gliadin IgA <10.0 U 62 Laboratory test 06/11/2018 [facility] Tissue <1.2 U/ mL 63 finding [phone] Transglutaminase Igg AB Tissue Transglutaminase IgA Ab <1.2 U/mL 64 CBC Auto Diff 06/11/2018 [facility] White Blood 7.3 10^3/uL N 3.5-10.8 [phone] Count Red Blood Count 4.86 10^6/uL N [...] Blood Cells % 0 Laboratory test 06/11/2018 [facility] Lipase 23 U/L N 11.0-82.0 finding [phone] C Reactive Protein 1.77 mg/L N <8.01 Comp Metabolic Panel 06/11/2018 [facility] Sodium 136 mmol/L N 135-145 [phone] Potassium 4.1 mmol/L N 3.5-5.0 Chloride 108 [...] Egfr Non- 86.9 >60 Egfr 105.2 >60 65 Laboratory 02/21/2018 [facility] Vitamin D, 1,25 81 pg/mL Abnormal 18-78 66 test finding [phone] Dihydroxy Laboratory 01/13/2018 [facility] Cytology Non-Director Biomedical Engineering SEE 67 test finding [phone] RESULT BELOW Lipid Profile 01/13/2018 [facility] Triglycerides 296 mg/dL 68 (Trig/Chol/HDL [phone] ) Cholesterol 276 mg/dL 69 HDL Cholesterol 61.7 mg/dL 70 LDL Cholesterol 155 mg/dL 71 Laboratory test 01/13/2018 [facility] TSH (Thyroid 2.87 mcIU/mL N 0.34-5.60 72 finding [phone] Stim Horm) Vitamin D Total 25(Oh) 13.5 ng/mL Low 20-50 73 Hemoglobin A1c (Glyco HGB) 5.7 % High 4.0-5.6 74 Comp Metabolic Panel 01/13/2018 [facility] Sodium 136 mmol/L N 133-145 [phone] Potassium 4.4 mmol/L N 3.5-5.0 Chloride 102 [...] Egfr Non- 94.2 >60 Egfr 121.2 >60 75 CBC Auto Diff 01/13/2018 [facility] White Blood 9.0 10^3/uL N 3.5-10.8 [phone] Count Red Blood Count 4.67 10^6/uL N 4.0-5.4 [...] 0-2 Nucleated Red Blood Cells % 0.1 1 [id number] 2 SEE RESULT BELOW Name: ALEXANDRA HERNANDEZ : [address]: Nish Martinez MD Acct: [id number] Unit: [id number] AGE: 43 Location: [facility] Re03/08/19 SEX: F Status: DEP REF SPEC: [id number] JAH: 03/08/19-[address]: Nish Martinez MD REQ: [id number] RECD: 03/08/19 STATUS: SHANIQUE LOVELL DR: Ney Javed CW OPERATOR _ SOURCE: GAS ANTRUM SPDESC: ORDERED: Clotest COMMENTS: [id number] Procedure Result Reported Site Clotest Final 03/09/19- 700 ML Clotest Negative * ML - Main Lab . END OF REPORT DEPARTMENT OF PATHOLOGY, [address] [place] [address] Markus Navarrete M.D. Director [facility] # [id number] 3 [id number] SEE RESULT BELOW Name: ALEXANDRA HERNANDEZ : [address]: Nish Martinez MD Acct: [id number] Unit: [id number] AGE: 43 Location: [facility] Re03/08/19 SEX: F Status: DEP REF SPEC: [id number] JAH: 03/08/[address] [facility] [address]: Nish Martinez MD REQ: [id number] RECD: 03/08/19 STATUS: MILA LOVELL DR: Ney Javed CW OPERATOR _ ORDERED: LEVEL 4/3, IMMUNO-FIRST COMMENTS: [id number] ADDENDUM An H. pylori immunohistochemical stain, with appropriately reacting controls , was performed on sections cut from specimen 3 and is negative for Helicobacter organisms. Addendum Signed (signature on file) Meera Julio MD 11/16 1109 FINAL DIAGNOSIS 1. Duodenum, third portion, biopsy: -- Benign small intestinal mucosa with no significant pathologic abnormalities. -- No evidence of villous blunting or increased intraepithelial lymphocytes. 2. Duodenum, second portion, biopsy: -- Benign small intestinal mucosa with focal active enteritis. -- No evidence of viral cytopathic effect or parasites. 3. Stomach, antrum, biopsy: -- Antral-type gastric mucosa with active chronic gastritis; see comment. COMMENT: An H. pylori immunohistochemical stain is pending for specimen 3 and the results will be reported in an addendum. CONTINUED ON NEXT PAGE DEPARTMENT OF PATHOLOGY, [address] [place] [address] Markus Navarrete M.D. Director [facility] # [id number] RUN DATE: 03/10/19 [facility] LIVE PAGE 2 Patient: ALEXANDRA HERNANDEZ [id number] (Continued) CLINICAL HISTORY (Continued) CLINICAL HISTORY Pain and some nausea on and off; burning grawing pain up high and upper back ; appetite low recently weight down 10 pounds intentionally; worse empty stomach; every day comes and goes POST-OPERATIVE DIAGNOSIS EGD: larynx - NGD; esophagus - normal esophagogastric 39 cm; stomach - antral stripes of erythema; duodenum - upper 80 percent normal; apex of bulb; conclusions: gastroduodenitis; pain GROSS DESCRIPTION 1. The specimen is received in formalin labeled, Biopsy Third Portion Duodenum, and consists of a 1.0 x 0.7 by up to 0.2 cm aggregate of keenan-pink irregular soft tissue fragments which is submitted entirely in one cassette. 2. The specimen is received in formalin labeled, Biopsy Second Portion Duodenum, and consists of a 0.5 x 0.2 by up to 0.2 cm keenan-pink irregular soft tissue fragment which is submitted entirely in one cassette. 3. The specimen is received in formalin labeled, Biopsy Gastric Antrum, and consists of a 1.0 x 0.6 by up to 0.3 cm aggregate of keenan-pink irregular soft tissue fragments which is submitted entirely in one cassette. Signed by and Reported on: Meera Julio MD 03/09/19 1245 END OF REPORT DEPARTMENT OF PATHOLOGY, [address] [place] [address] Markus Navarrete M.D. Director [facility] # [id number] 5 REFERENCE VALUE <=9 IU/mL (Negative) 10-11 IU/mL (Equivocal) >=12 IU/mL (Positive) Test Performed by: [facility] - [address] [address] 6 No IgM antibodies to T. gondii detected. Results may be negative in patients with recent infection or who are significantly immunosuppressed. 7 Because ethnic data is not always readily [...] 15-29 5 Kidney failure <15 (or dialysis) 8 [id number] 10 Normal values may vary with age, season and geographic area. Titers above upper limits may be indicative of infection, however only a two dilution rise in titer is required to be considered significant. ASO titer will usually rise above upper limits within one week of exposure, increase to peak levels at 3-5 weeks and return to baseline level at 6-12 twelve months. 11 No antibodies to WNV detected. Repeat testing in 10-14 days if clinical suspicion persists. Test Performed by: [facility] [place] [address] 12 Test Performed by: [facility] [address] [place] [id number] Markus Navarrete M.D. Director of Laboratory 13 Test Performed by: [facility] [place] [address] 14 REFERENCE VALUE <0.4 (Negative) 15 REFERENCE VALUE <0.4 (Negative) Test Performed by: [facility] [place] [address] 16 Test Performed by: [facility] [address] [place] [id number] Markus Navarrete M.D. Director of Laboratory 17 REFERENCE VALUE <=1.0 (Negative) 18 REFERENCE VALUE <20.0 (Negative) 19 Tests for antibodies to dsDNA and RAUDEL antigens are not performed automatically unless the JELLY result is > or= 3.0 U. Studies performed at [facility] indicate that positive JELLY results <3.0 U are rarely accompanied by positive second order tests. Test Performed by: [facility] [place] [address] 20 No bands detected 21 Specific serologic response to B. burgdorferi infection [...] >=30 days of symptoms. Test Performed by: [facility] - [address] [address] 22 Test Performed by: [facility] - [address] [address] 23 ADDITIONAL INFORMATION This test was developed using an analyte specific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
--- OUTSIDE RECORDS SUMMARY | 2019-03-30 16:20 | XMS REPORT | Continuity of Care Document ---
:1975 External Reference #:[id number] Author Name TORY Benjamin Address [address] [place] [address] Care Team Providers Name Role Phone TORY Benjamin Care Team Information Supervisor Packing Unavailable Payers Date Identification Numbers Payment Provider Subscriber Policy Number: [id number] [facility] Alexandra Hernandez PayID: [id number] 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 5mg Tablets Proctozone-HC apply to 30gm K51.911 Ney Gibbs 06/07/2018 2.5% Cream hemorrhoids 3 - 4 [facility] times daily if needed [place] 3 Luisana Mataley, 06/16/2017 Capsules M.D., R.D. Multi Vitamin Daily 1 by mouth every Unknown day Tablets Vitamin D 1 by mouth every Unknown 1000Unit day Tablets Zyrtec Allergy 1 by mouth every Unknown 10mg day Capsules History Medications Gabapentin take one capsule 60caps R51 Ney Gibbs 03/10/2019 - 300mg Capsules by mouth before [facility] 03/17/2019 bed for 3 nights then take one pill two times daily Medrol take daily by 21units R51 Ney Gibbs 03/07/2019 - 4mg TBPK mouth per package [facility] 03/17/2019 directions Diazepam take 1/2 to 1 20tabs Star Mcallister, 02/21/2019 - 2mg Tablets tablets by mouth M.D. 03/07/2019 four times a day as needed maximum daily dose=4 Cyclobenzaprine HCL take 1 to 2 30tabs Star Mcallister, 02/21/2019 - 5mg tablets by mouth M.D. 03/17/2019 Tablets up to three times a day as needed for muscle spasm - may cause drowsiness Omeprazole 1 by mouth every R10.13 Unknown 02/21/2019 - 20mg Capsules day 03/17/2019 DR Driscollitidine HCL take one tablet 60tabs R10.13 Star Mcallister, 02/08/2019 - 150mg by mouth twice a M.D. 02/21/2019 Tablets day if needed Azithromycin 2 by mouth every 6tabs J20.9 Star Mcallister, 01/19/2019 - 250mg day day 1, then 1 M.D. 01/24/2019 Tablets by mouth every day days 2-5 Prednisone 2 by mouth every 20tabs J20.9 Star Mcallister, 01/19/2019 - 10mg Tablets day x 5 days, 1 M.D. 02/08/2019 po qd x 5 days Vitamin D take 1 capsule by 8caps R51 [place] RAnthony 01/10/2019 - (E[facility]ocalciferol) [facility] for 4 [id number] Capsules weeks Prednisone 2 by mouth every 10tabs J20.9 [facility] 08/31/2018 - 20mg Tablets day for 5 days Hillary, 01/19/2019 Elise, RLilo. Ventolin HFA inhale two puffs 54units J20.9 Luisana 08/31/2018 - 108(90Base) by mouth tid to [facility], 03/10/2019 mcg/Act Aerosol qid Elise, RNicol Azithromycin 2 by mouth today 6tabs J20.9 [facility] 08/31/2018 - 250mg then 1 by mouth Hillary, 01/10/2019 Tablets daily for 4 days Elise, RLilo. Alprazolam take 1/2 to 1 tab 14tabs F43.0 Ney Gibbs 06/14/2018 - 0.25mg Tablets twice daily [facility] needed for anxiety Vitamin D take 1 capsule by 8caps Ney Gibbs 01/14/2018 - (Ergocalciferol) mouth twice [facility] 06/07/2018 weekly for 4 [id number] Capsules weeks No Active Medications Unknown 06/16/2017 - 06/16/2017 Vitamins Luisana 06/16/2017 - Hillary, 02/21/2018 Tablets Elise, R.D. Cephalexin 1 by mouth three 30caps N61.0 [facility] 06/16/2017 - 500mg Capsules times a day for 7 Hillary, 08/13/2017 days Elise, R.D. Immunizations CPT Code Status Date Vaccine Lot # [id number] Given 08/24/2018 Influenza Virus Vaccine, Quadrivalent, 3 Yr > Quad, Preserv Free 95060 Given 11/30/2017 Influenza Virus Vaccine, Quadrivalent, 3 Yr > Quad, Preserv Free Vital Signs Date Vital Result Comment 03/17/2019 4:30pm Weight 152.00 lb Weight 68.947 kg BP Systolic 102 mmHg BP Diastolic 70 mmHg Heart Rate 68 /min Body Temperature 97.7 F Respiratory Rate 16 /min 03/10/2019 3:17pm Weight 153.00 lb Weight 69.401 [...] Respiratory Rate 16 /min Last Menstrual Period 8832798 O2 % BldC Oximetry 98 % 08/31/2018 [...] Mass Index) 26.8 kg/m2 Last Menstrual Period 3831067 O2 % BldC Oximetry 98 % 01/13/2018 [...] Date Facility Test Result H/L Range Note Monica Adame 03/14/2019 [facility] Ebv Capsid Positive Negative Comprehensive [phone] Ag IgG Ab Ebv Capsid Ag IgM Ab Negative Negative Monica-Adame Nuclear Antigen Positive Negative Monica-Adame Virus Interp See Comment 1 Laboratory 03/08/2019 [facility] Clotest SEE RESULT 2, 3 test finding [phone] BELOW Laboratory 03/08/2019 [facility] Surgical SEE RESULT 4, 5 test finding [phone] Pathology BELOW Toxoplasma Igg 03/07/2019 [facility] Toxoplasma IgG Negative Negative & Igm Abs [phone] Antibody Toxoplasma IgG Antibody Index <3 IU/mL 6 Toxoplasma IgM Antibody Negative Negative 7 Comp Metabolic Panel 03/07/2019 [facility] Sodium 139 mmol/L N 135-145 [phone] Potassium 4.4 mmol/L N 3.5-5.0 Chloride 106 [...] Egfr Non- 89.3 >60 Egfr 108.0 >60 8 Laboratory test 03/07/2019 [facility] Magnesium 2.0 mg/dL N 1.9-2.7 9 finding [phone] Erythrocyte Sed Rate 3 mm/Hr N 0-19 10 Laboratory 03/07/2019 [facility] Aso Negative < 200 Iu/mL 11 test finding [phone] (Antistreptolysin IU/mL O) Titer West Nile Igg 03/07/2019 [facility] West Nile Virus IgG Negative Negative And Igm [phone] West Nile Virus IgM Negative Negative West Nile Serum Interpretation See Comment 12 Laboratory test 02/25/2019 [facility] C Reactive 1.21 mg/L N <8.01 finding [phone] Protein CBC Auto Diff 02/25/2019 [facility] White Blood 8.8 N 3.5-10.8 [phone] Count 10^3/uL Red Blood Count 4.66 10^6/uL [...] Red Blood Cells % 0.1 Laboratory 02/25/2019 [facility] Erythrocyte Sed 4 mm /Hr N 0-20 13 test finding [phone] Rate Laboratory 02/21/2019 [facility] Immunoglobulin A 384 Abnormal 61 - 14 test finding [phone] (Iga) mg/dL 356 Anca Panel 02/21/2019 [facility] Myeloperoxidase AB < 0.2 U 15 For [phone] Vasculitis Proteinase 3 AB < 0.2 U 16 Arthritis Panel 02/21/2019 [facility] Uric Acid 4.8 mg/dL N 2.3-6.6 [phone] Rheumatoid Factor < 10 IU/mL N <15 Erythrocyte Sed Rate 3 mm/Hr N 0-20 17 Anti-Nuclear Antibody 0.4 U 18 Cyclic Citrullinated Peptide <15.6 U 19 Interpretation See Comment 20 Laboratory test 02/21/2019 [facility] C Reactive 1.64 mg/L N <8.01 finding [phone] Protein Lyme Western Blot 02/21/2019 [facility] Lyme Disease Negative Negative [phone] IgG Ab WB Lyme Disease IgG Bands Present p45,p41,p39 kDa Lyme Disease IgM Ab WB Negative Negative Lyme Disease IgM Bands Present No bands detecte <SEE NOTE> kDa 21 Lyme Disease Interpretation See Comment 22 Laboratory test 02/21/2019 [facility] Complement C4 21 mg/dL 14 - 23 finding [phone] Tick-Borne 02/21/2019 [facility] Anaplasma <1:64 < 1:64 24 Disease AB [phone] phagocytophilium titer Panel Babesiosis Evaluation <1:64 titer <1:64 25 Ehrlichia chaffeensis IgG AB <1:64 titer <1:64 26 Lyme Disease Serology Negative Negative 27 Laboratory test 02/21/2019 [facility] Creatine 60 U/ L N 10-223 finding [phone] Kinase(CK) Aldolase 6.4 U/L <7.7 28 Comp Metabolic Panel 02/15/2019 [facility] Sodium 138 mmol/L N 135-145 [phone] Potassium 4.5 mmol/L N 3.5-5.0 Chloride 105 [...] Egfr Non- 83.9 >60 Egfr 101.5 >60 29 Liver Function 02/15/2019 [facility] Direct 0.10 mg/ dL N 0.03-0.18 Panel [phone] Bilirubin Indirect Bilirubin 0.2 mg/dL Low 0.3-1.0 Laboratory test 02/15/2019 [facility] Amylase 43 U/L N 29-103 finding [phone] Lipase 35 U/L N 11.0-82.0 C Reactive Protein 2.71 mg/L N <8.01 CBC No Diff 02/15/2019 [facility] White Blood 9.3 10^ 3/uL N 3.5-10.8 [phone] Count Red Blood Count 4.67 10^6/uL N [...] 7.8 fL N 7.4-10.4 O P: 02/04/2019 [facility] O P: SEE 30 Giardia/Cryptospor [phone] Giardia/Cryptospor RESULT Screen Screen BELOW Laboratory test 01/19/2019 [facility] Hemoglobin A1c 5.8 % High 4. 31 finding [phone] (Glyco HGB) 0- 5. 6 CRP High Sensitivity 2.08 mg/L High <2.00 TSH (Thyroid Stimulating Horm) 1.82 mcIU/mL N 0.34-5.60 Free T4 1.00 ng/dL N 0.61-1.12 Ferritin 71.0 ng/mL N 11-307 Thyroperoxidase AB 0.97 IU/mL N <9 Insulin Level 7.5 mcIU/mL N 2.0-16.0 Thyroglobulin Antibody II 58.0 IU/mL High <4.0 Thyroxine 6.94 g/dL N 6.09-12.23 Heavy Metal Blool 01/19/2019 [facility] Arsenic <1 ng /mL 0-12 32 [phone] Lead <1.0 g/dL 0.0-4.9 33 Mercury <1 ng/mL 0-9 34 Cadmium <0.2 ng/mL 0.0-4.[address] [place] [address] [facility] Guardian First Name ALEXANDRA Ramirez Guardian Last Name AALIYAH Venous/Capillary Heavy Metals Venous Patient Race WHITE Submitting Laboratory Phone [phone] Laboratory test 01/19/2019 [facility] Copper, 1.17 g/mL 0.75-1.45 37 finding [phone] Serum Zinc Serum 0.87 g/mL 0.66-1.10 38 CBC Auto Diff 01/19/2019 [facility] White Blood 8.3 10^3/uL N 3.5-10.8 [phone] Count Red Blood Count 4.87 10^6/uL N 4.00-5.40 [...] % Nucleated Red Blood Cells % 0 CBC Auto 01/12/2019 [facility] White Blood 13.5 10^3/ uL High 3.5-10.8 Diff [phone] Count Red Blood Count 5.24 10^6/uL N 4.00-5.40 [...] Red Blood Cells % 0 Laboratory test 01/12/2019 [facility] Lactic Acid 0.7 mmol/L N 0.5-2.0 39 finding [phone] Comp Metabolic 01/12/2019 [facility] Sodium 138 mmol/ L N 135-145 Panel [phone] Potassium 3.8 mmol/L N 3.5-5.0 Chloride 102 [...] Egfr Non- 82.6 >60 Egfr 100.0 >60 40 Laboratory test 01/12/2019 [facility] Lipase 29 U/L N 11.0-82.0 finding [phone] C Reactive Protein 2.18 mg/L N <8.01 HCG < 0.60 mIU/mL 41 Laboratory test 01/10/2019 [facility] Rheumatoid < 10 IU/mL N <15 42 finding [phone] Factor Anti Nuclear Antibody 0.4 U 43 Hla B27 01/10/2019 [facility] Hla B27 Negative 44 [phone] Hla B27 Interp See Comment 45 Laboratory test 01/10/2019 [facility] Anti Ssa/Ro < 0.2 U 46 finding [phone] Anti SSB LA <0.2 U 47 C Reactive Protein 3.43 mg/L N <8.01 48 Cyclic Citrullinated Pep Igg <15.6 U 49 Creatine Kinase(CK) 58 U/L N 10-223 50 CBC Auto Diff 12/16/2018 [facility] White Blood 8.9 10^3/uL N 3.5-10.8 [phone] Count Red Blood Count 4.77 10^6/uL N [...] Blood Cells % 0.1 Basic Metabolic 12/16/2018 [facility] Sodium 138 mmol /L N 135-145 Panel [phone] Potassium 4.4 mmol/L N 3.5-5.0 Chloride 105 mmol/L N 101-111 Co2 Carbon Dioxide 26 mmol/L N 22-32 Anion Gap 7 mmol/L N 2-11 Glucose 115 mg/dL High 70-100 Blood Urea Nitrogen 16 mg/dL N 6-24 Creatinine 0.86 mg/dL N 0.51-0.95 BUN/Creatinine Ratio 18.6 N 8-20 Calcium 9.7 mg/dL N 8.6-10.3 Egfr Non- 72.7 >60 Egfr 88.0 >60 51 Laboratory test 12/16/2018 [facility] HCG < 0.60 mIU/mL 52 finding [phone] TSH (Thyroid Stim Horm) 1.13 mcIU/mL N 0.34-5.60 Free T4 (Free Thyroxine) 0.69 ng/dL N 0.61-1.12 Vitamin B12 536 pg/mL N 180-914 53 Vitamin D Total 25(Oh) 28.7 ng/mL N 20-50 Lyme Western 12/16/2018 [facility] Lyme Disease Negative Negative Blot [phone] IgG Ab WB Lyme Disease IgG Bands Present p41,p39 kDa Lyme Disease IgM Ab WB Negative Negative Lyme Disease IgM Bands Present No bands detecte <SEE NOTE> kDa 54 Lyme Disease Interpretation See Comment 55 CBC Auto Diff 08/23/2018 [facility] White Blood 8.9 10^3/uL N 3.5-10.8 [phone] Count Red Blood Count 4.49 10^6/uL N [...] Red Blood Cells % 0.2 Laboratory test 08/23/2018 [facility] TSH (Thyroid 2.20 mcIU/mL N 0.34-5.60 56 finding [phone] Stim Horm) Laboratory test 06/21/2018 [facility] Surgical SEE RESULT 57 finding [phone] Interface BELOW Order Stool Occult 06/16/2018 [facility] Stool Occult SEE RESULT 58 Blood Diag [phone] Blood, Diag BELOW Stool Panel 06/16/2018 [facility] C Difficile SEE RESULT 59 (CMC) [phone] PCR BELOW Laboratory test 06/16/2018 [facility] Helico Pylori Negative Negative 60 finding [phone] Antigen- Stool Laboratory test 06/11/2018 [facility] Lipase 23 U/L N 11.0-82.0 finding [phone] C Reactive Protein 1.77 mg/L N <8.01 CBC Auto Diff 06/11/2018 [facility] White Blood 7.3 10^3/uL N 3.5-10.8 [phone] Count Red Blood Count 4.86 10^6/uL N [...] Blood Cells % 0 Laboratory test 06/11/2018 [facility] Tissue <1.2 U/ mL 61 finding [phone] Transglutaminase Igg AB Tissue Transglutaminase IgA Ab <1.2 U/mL 62 Anti Gliadin Igg And 06/11/2018 [facility] Gliadin IgG <10.0 U 63 Iga AB [phone] Gliadin IgA <10.0 U 64 Laboratory test 06/11/2018 [facility] Anti Endomysial Negative Negative 65 finding [phone] Antibody Comp Metabolic 06/11/2018 [facility] Sodium 136 mmol/ L N 135-145 Panel [phone] Potassium 4.1 mmol/L N 3.5-5.0 Chloride 108 [...] Egfr Non- 86.9 >60 Egfr 105.2 >60 66 Laboratory 02/21/2018 [facility] Vitamin D, 1,25 81 pg/mL Abnormal 18-78 67 test finding [phone] Dihydroxy Laboratory 01/13/2018 [facility] Cytology Non-Transitional Care Manager SEE 68 test finding [phone] RESULT BELOW Lipid Profile 01/13/2018 [facility] Triglycerides 296 mg/dL 69 (Trig/Chol/HDL [phone] ) Cholesterol 276 mg/dL 70 HDL Cholesterol 61.7 mg/dL 71 LDL Cholesterol 155 mg/dL 72 Laboratory test 01/13/2018 [facility] TSH (Thyroid 2.87 mcIU/mL N 0.34-5.60 73 finding [phone] Stim Horm) Vitamin D Total 25(Oh) 13.5 ng/mL Low 20-50 74 Hemoglobin A1c (Glyco HGB) 5.7 % High 4.0-5.6 75 Comp Metabolic Panel 01/13/2018 [facility] Sodium 136 mmol/L N 133-145 [phone] Potassium 4.4 mmol/L N 3.5-5.0 Chloride 102 [...] Egfr Non- 94.2 >60 Egfr 121.2 >60 76 CBC Auto Diff 01/13/2018 [facility] White Blood 9.0 10^3/uL N 3.5-10.8 [phone] Count Red Blood Count 4.67 10^6/uL N [...] Nucleated Red Blood Cells % 0.1 1 RESULT: Results suggest past infection. ADDITIONAL INFORMATION In most populations, at least 90% of the adult population will have been infected with EBV sometime in the past and therefore, will be positive for anti-VCA/IgG and anti- EBNA. Antibodies to EBNA develop 6-8 weeks after primary infection and remain present for life. Presence of VCA/ IgM antibodies indicates recent primary infection with EBV. Test Performed by: [facility] [address] [place] [address] 2 [id number] SEE RESULT BELOW Name: ALEXANDRA HERNANDEZ : [address]: Nish Martinez MD Acct: [id number] Unit: [id number] AGE: 43 Location: [facility] Re03/08/19 SEX: F Status: DEP REF SPEC: [id number] JAH: 03/08/19-[address]: Nish Martinez MD REQ: [id number] RECD: 03/08/19 STATUS: COMP KARINE DR: Ney Javed [employer] _ SOURCE: GAS ANTRUM SPDESC: ORDERED: Clotest COMMENTS: [id number] Procedure Result Reported Site Clotest Final 03/09/19- 700 ML Clotest Negative * - [facility] . END OF REPORT DEPARTMENT OF PATHOLOGY, [address] [place] [address] Markus Navarrete M.D. Director [facility] # [id number] 5 SEE RESULT BELOW Name: ALEXANDRA HERNANDEZ : [address]: Nish Martinez MD Acct: [id number] Unit: [id number] AGE: 43 Location: [facility] Re03/08/19 SEX: F Status: DEP REF SPEC: [id number] JAH: 03/08/19-1153 [facility] DR: Nish Martinez MD REQ: [id number] RECD: 03/08/196184 STATUS: MILA LOVELL DR: Ney Javed NP _ ORDERED: LEVEL 4/3, IMMUNO-FIRST COMMENTS: [id number] ADDENDUM An H. pylori immunohistochemical stain, with [...] CONTINUED ON NEXT PAGE DEPARTMENT OF PATHOLOGY, [address] [place] [address] Markus Navarrete M.D. Director [facility] # [id number] RUN DATE: 03/10/19 [facility] LIVE PAGE 2 Patient: ALEXANDRA HERNANDEZ [id number] (Continued) CLINICAL HISTORY (Continued) CLINICAL HISTORY Pain [...] 1245 END OF REPORT DEPARTMENT OF PATHOLOGY, [address] [place] [address] Markus Navarrete M.D. Director [facility] # [id number] 6 REFERENCE VALUE <=9 IU/mL (Negative) 10-11 IU/mL (Equivocal) >=12 IU/mL (Positive) Test Performed by: [place] [address] 7 No IgM antibodies to T. gondii detected. Results may be negative in patients with recent infection or who are significantly immunosuppressed. 8 Because ethnic data is not always readily [...] 15-29 5 Kidney failure <15 (or dialysis) 9 [id number] 10 [id number] 11 Normal values may vary with age, season and geographic area. Titers above upper limits may be indicative of infection, however only a two dilution rise in titer is required to be considered significant. ASO titer will usually rise above upper limits within one week of exposure, increase to peak levels at 3-5 weeks and return to baseline level at 6-12 twelve months. 12 No antibodies to WNV detected. Repeat testing in 10-14 days if clinical suspicion persists. Test Performed by: [facility] [place] [address] 13 Test Performed by: [facility] [address] [place] [address] Markus Navarrete M.D. Director of Laboratory 14 Test Performed by: [facility] [place] [address] 15 REFERENCE VALUE <0.4 (Negative) 16 REFERENCE VALUE <0.4 (Negative) Test Performed by: [facility] - [address] [address] 17 Test Performed by: [facility] [address] [place] [address] Markus Navarrete M.D. Director of Laboratory 18 REFERENCE VALUE <=1.0 (Negative) 19 REFERENCE VALUE <20.0 (Negative) 20 Tests for antibodies to dsDNA and RAUDEL antigens are not performed automatically unless the JELLY result is > or= 3.0 U. Studies performed at [facility] indicate that positive JELLY results <3.0 U are rarely accompanied by positive second order tests. Test Performed by: [facility] [place] [address] 21 No bands detected 22 Specific serologic response to B. burgdorferi infection [...] >=30 days of symptoms. Test Performed by: [facility] [place] [address] 23 Test Performed by: [facility] [place] [address] 24 ADDITIONAL INFORMATION This test was developed using an analyte specific reagent. Its performance characteristics were determined by [facility] in a manner consistent with CLIA requirements. This test has not been cleared or approved by the U.S. Food and Drug Administration. 25 ADDITIONAL INFORMATION This test was developed using an analyte specific reagent. Its performance characteristics were determined by [facility] in a manner consistent with CLIA requirements. This test has not been cleared or approved by the U.S. Food and Drug Administration. 26 ADDITIONAL INFORMATION This test was developed using an analyte specific reagent. Its performance characteristics were determined by [facility] in a manner consistent with CLIA requirements. This test has not been cleared or approved by the U.S. Food and Drug Administration. 27 No evidence of antibodies to B. burgdorferi detected. False negative results may occur in recently infected patients (<=2 weeks) due to low or undetectable antibody levels to B. burgdorferi. If recent exposure is suspected, a second sample should be collected and tested in 2-4 weeks. Test Performed by: [facility] [place] [address] 28 Test Performed by: [facility] [address] [place] [address] 29 Because ethnic data is not always readily [...] 15-29 5 Kidney failure <15 (or dialysis) 30 SEE RESULT BELOW Name: ALEXANDRA HERNANDEZ : [address]: Nargis Bach NP Acct: [id number] Unit: [id number] AGE: 43 Location: [facility] Re02/04/19 SEX: F Status: REG REF SPEC: [id number] JAH: 02/04/[address]: Nargis Bach NP REQ: [id number] RECD: 02/04/19 STATUS: SHANIQUE LOVELL DR: Ney Javed [employer] _ SOURCE: STOOL SPDES: ORDERED: O P: Giar/Crypt Procedure Result Reported Site O P: Giardia/Cryptospor Screen Final 02/06/19- 1145 ML Organism 1 Neg Cryptosporidium/Giardia * ML - Main Lab . END OF REPORT DEPARTMENT OF PATHOLOGY, [address] [place] [address] Markus Navarrete M.D. Director [facility] # [id number] 31 Therapeutic target for the treatment of diabetes mellitus patients is <7% HBA1C, and in selective patients <6.0%. Please refer to [place] [employer] diabetic care guidelines for further information. 32 ADDITIONAL INFORMATION This test was developed and its performance characteristics determined by [facility] in a manner consistent with CLIA requirements. This test has not been cleared or approved by the U.S. Food and Drug Administration. 33 ADDITIONAL INFORMATION Testing performed by Inductively Coupled Plasma-Mass Spectrometry (ICP-MS). This test was developed and its performance characteristics determined by [facility] in a manner consistent with CLIA requirements. This test has not been cleared or approved by the U.S. Food and Drug Administration. 34 ADDITIONAL INFORMATION This test was developed and its performance characteristics determined by [facility] in a manner consistent with CLIA requirements. This test has not been cleared or approved by the U.S. Food and Drug Administration. 35 ADDITIONAL INFORMATION This test was developed and its performance characteristics determined by [facility] in a manner consistent with CLIA requirements. This test has not been cleared or approved by the U.S. Food and Drug Administration. 36 Test Performed by: [facility] - [address] [address] 37 ADDITIONAL INFORMATION This test was developed and its performance characteristics determined by [facility] in a manner consistent with CLIA requirements. This test has not been cleared or approved by the U.S. Food and Drug Administration. Test Performed by: [facility] - [address] [address] 38 ADDITIONAL INFORMATION This test was developed and its performance characteristics determined by [facility] in a manner consistent with CLIA requirements. This test has not been cleared or approved by the U.S. Food and Drug Administration. Test Performed by: [facility] - [place] [address] [place] [address] 39 [facility] Severe Sepsis and Septic Shock Management Bundle Measure requires all lactic acids initially measuring >2.0 mmol/L be repeated. 40 Because ethnic data is not always readily [...] 15-29 5 Kidney failure <15 (or dialysis) 41 <5.0 Negative 5.0 - 25.0 Indeterminate (Repeat testing recommended after 72 hours) >25.0 Positive Perimenopausal women can display HCG levels of up to 20 mIU/mL 42 [id number] REFERENCE VALUE <=1.0 (Negative) Test Performed by: [facility] - [address] [address] 44 REFERENCE VALUE Not Applicable 45 RESULT: HLA-B27 antigen was not detected. ADDITIONAL INFORMATION Method: Flow Cytometry Performing Laboratory CLIA# [id number] Test Performed by: [facility] - [address] [address] 46 REFERENCE VALUE <1.0 (Negative) Test Performed by: [facility] - [address] [address] 47 REFERENCE VALUE <1.0 (Negative) Test Performed by: [facility] - [address] [address] 48 [id number] REFERENCE VALUE <20.0 (Negative) Test Performed by: [facility] - [address] [address] 50 [id number] 51 Because ethnic data is not always readily [...] 15-29 5 Kidney failure <15 (or dialysis) 52 <5.0 Negative 5.0 - 25.0 Indeterminate (Repeat testing recommended after 72 hours) >25.0 Positive Perimenopausal women can display HCG levels of up to 20 mIU/mL 53 Normal Range 180 to 914 Indeterminate Range 145 to 180 Deficient Range <145 54 No bands detected 55 Specific serologic response to B. burgdorferi infection [...] >=30 days of symptoms. Test Performed by: [facility] - [facility] [address] [place] [address] 56 [id number] SEE RESULT BELOW Name: ALEXANDRA HERNANDEZ : [address]: Nish Martinez MD Acct: [id number] Unit: [id number] AGE: 42 Location: [facility] Re06/21/18 SEX: F Status: DEP REF SPEC: [id number] JAH: 06/21/18-1329 [facility] DR: Nish Martinez MD REQ: [id number] RECD: 06/21/181 STATUS: MILA LOVELL DR: Ney Javed [employer] _ ORDERED: LEVEL 4/4 FINAL DIAGNOSIS 1. [...] CONTINUED ON NEXT PAGE DEPARTMENT OF PATHOLOGY, [address] [place] [address] Markus Navarrete M.D. Director [facility] # [id number] RUN DATE: 06/22/18 [facility] LAB LIVE PAGE 2 Patient: ALEXANDRA HERNANDEZ [id number] (Continued) GROSS DESCRIPTION (Continued) GROSS DESCRIPTION (Continued) [...] 1630 END OF REPORT DEPARTMENT OF PATHOLOGY, [address] [place] [address] Markus Navarrete M.D. Director [facility] # [id number] 58 SEE RESULT BELOW Name: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
--- OUTSIDE RECORDS SUMMARY | 2019-03-30 16:21 | XMS REPORT | Continuity of Care Document ---
:1975 External Reference #:[id number] Author Name TORY Benjamin Address [address] [place] [address] Care Team Providers Name Role Phone TORY Benjamin Care Team Information Complaint Investigator Unavailable Payers Date Identification Numbers Payment Provider Subscriber Policy Number: [id number] [facility] Alexandra Hernandez PayID: [id number] 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[place] Tobacco Use Start: Unknown Never Smoked [...] Form Strength Qnty SIG Indications Ordering Provider Alprazolam 03/07 Active Tablets 0.25mg 30tab 1 by mouth F41.9 s twice daily Bernie Javed, if needed [employer] Medrol 03/07 Active TBPK 4mg 21uni take daily M79.10 ts by mouth per Bernie Jaevd, package [employer] directions Doxycycline 04/09 Active Capsules 100mg 42cap 1 by mouth M79.10 Shawnti Monohydrate s twice daily Bernie Javed, for 21 days [employer]HOU[employer] Omeprazole 02/21 Active Capsules 20mg 1 by mouth R10.[address] every day Cyclobenzaprine 02/21 Active Tablets 5mg 30tab take 1 to 2 Star HCL s tablets by Ary, mouth up to M.D. three times a day as needed for muscle spasm - may cause drowsiness Levocetirizine 02/08 Active Tablets 5mg 30tab 1 by mouth J30.9 Star Dihydrochloride /2018 s every day Elise Mcallister Ventolin HFA 08/31 Active Aerosol 108(90Bas 54uni inhale two J20.9 e) ts puffs by chelsea Thornton/Act mouth tid to M.D., qid R.DAnthony Proctozone-HC 06/07 Active Cream 2.5% 30gm apply to K51.911 hemorrhoids Bernie Javed, 3 - 4 times [employer] daily if needed Ballwin 3 06/16 Active Capsules Elise Thornton, R.D. Multi Vitamin Active Tablets 1 by mouth Unknown Daily /0000 every day Vitamin D Active Tablets 1000Unit 1 by mouth Unknown / every day Zyrtec Allergy Active Capsules 10mg 1 by mouth Unknown / every day Diazepam 02/21 Hx Tablets 2mg 20tab take 11/30 to s 1 tablets by Ary, - mouth four M.D. 03/07 times a day as needed maximum daily dose=4 Ranitidine HCL 02/08 Hx Tablets 150mg 60tab take one R10.13 s tablet by Ary, - mouth twice M.D. 02/21 a day if /2019 needed Azithromycin 01/19 Hx Tablets 250mg 6tabs 2 by mouth J20.9 every day Chuckie Mcallister day 1, then M.D. 01/24 1 by mouth /2018 every day days 2-5 Prednisone 01/19 Hx Tablets 10mg 20tab 2 by mouth J20.9 s every day x Mcallister, - 5 days, 1 po M.D. 02/08 qd x 5 days /2018 Vitamin D 01/10 Hx Capsules [id number] 8caps take 1 M79.10 Shawnti (Ergocalciferol) capsule by Bernie Javed, - mouth twice [employer] 02/21 weekly for weeks Prednisone 08/31 Hx Tablets 20mg 10tab 2 by mouth J20.9 s every day Hillary, - for 5 days M.D., 01/19 R.D. /2018 Azithromycin 08/31 Hx Tablets 250mg 6tabs 2 by mouth J20.9 today then 1 Hillary, - by mouth M.D., 01/10 daily for 4 R.D. days Alprazolam 06/14 Hx Tablets 0.25mg 14tab take 1 to F43.0 s 1 tab twice Bernie Javed, - daily if [employer] 08/23 needed anxiety Vitamin D 01/14 Hx Capsules [id number] 8caps take 1 Shawnti (Ergocalciferol) capsule by Bernie Javed, - mouth twice [employer]HOU[employer] 06/07 weekly for weeks No Active 06/16 Hx Unknown Medications /2016 - 06/16 Vitamins 06/16 Hx Tablets Hillary, - M.D., 02/21 R.D. Cephalexin 06/16 Hx Capsules 500mg 30cap 1 by mouth N61.0 s three times Hillary, - a day for 7 M.D., 08/13 days R.D. /2016 Immunizations CPT Code Status Date Vaccine Lot # [id number] Given 08/24/2018 Influenza Virus Vaccine, Quadrivalent, 3 Yr > Quad, Preserv Free [id number] Given 11/30/2017 Influenza Virus Vaccine, Quadrivalent, 3 Yr > Quad, Preserv Free Vital Signs Date Vital Result Comment 03/07/2019 9:28am Weight 152.00 lb Weight 68.947 [...] Respiratory Rate 16 /min Last Menstrual Period 4320855 O2 % BldC Oximetry 98 % 08/31/2018 [...] Mass Index) 26.8 kg/m2 Last Menstrual Period 5461328 O2 % BldC Oximetry 98 % 01/13/2018 [...] Test Result H/L Range Note Laboratory test 03/07/2019 [facility] Aso <pending> finding [phone] (Antistreptolys in O) Titer Laboratory test 03/07/2019 [facility] Magnesium < pending> finding [phone] Erythrocyte Sed Rate <pending> Laboratory test 02/25/2019 [facility] C Reactive 1.21 mg/L N <8.01 finding [phone] Protein CBC Auto Diff 02/25/2019 [facility] White Blood 8.8 N 3.5-10.8 [phone] Count 10^3/uL Red Blood Count 4.66 10^6/uL [...] Red Blood Cells % 0.1 Laboratory test 02/25/2019 [facility] Erythrocyte Sed 4 mm/Hr N 0-20 1 finding [phone] Rate Arthritis Panel 02/21/2019 [facility] Uric Acid 4.8 mg/dL N 2.3-6.6 [phone] Rheumatoid Factor < 10 IU/mL N <15 Erythrocyte Sed Rate 3 mm/Hr N 0-20 2 Anti-Nuclear Antibody 0.4 U 3 Cyclic Citrullinated Peptide <15.6 U 4 Interpretation See Comment 5 Laboratory 02/21/2019 [facility] Immunoglobulin A 384 Abnormal 61 - 6 test finding [phone] (Iga) mg/dL 356 Anca Panel For 02/21/2019 [facility] Myeloperoxidase AB < 0.2 U 7 Vasculitis [phone] Proteinase 3 AB < 0.2 U 8 Laboratory test 02/21/2019 [facility] C Reactive 1.64 mg/L N <8.01 finding [phone] Protein Lyme Western Blot 02/21/2019 [facility] Lyme Disease Negative Negative [phone] IgG Ab WB Lyme Disease IgG Bands Present p45,p41,p39 kDa Lyme Disease IgM Ab WB Negative Negative Lyme Disease IgM Bands Present No bands detecte <SEE NOTE> kDa 9 Lyme Disease Interpretation See Comment 10 Laboratory test 02/21/2019 [facility] Creatine 60 U/ L N 10-223 finding [phone] Kinase(CK) Aldolase 6.4 U/L <7.7 11 Laboratory test 02/21/2019 [facility] Complement C4 21 mg/dL 14 - 12 finding [phone] Tick-Borne 02/21/2019 [facility] Anaplasma <1:64 < 1:64 13 Disease AB [phone] phagocytophilium titer Panel Babesiosis Evaluation <1:64 titer <1:64 14 Ehrlichia chaffeensis IgG AB <1:64 titer <1:64 15 Lyme Disease Serology Negative Negative 16 Comp Metabolic Panel 02/15/2019 [facility] Sodium 138 mmol/L N 135-145 [phone] Potassium 4.5 mmol/L N 3.5-5.0 Chloride 105 [...] Egfr Non- 83.9 >60 Egfr 101.5 >60 17 Liver Function 02/15/2019 [facility] Direct 0.10 mg/ dL N 0.03-0.18 Panel [phone] Bilirubin Indirect Bilirubin 0.2 mg/dL Low 0.3-1.0 Laboratory test 02/15/2019 [facility] Amylase 43 U/L N 29-103 finding [phone] Lipase 35 U/L N 11.0-82.0 C Reactive Protein 2.71 mg/L N <8.01 CBC No Diff 02/15/2019 [facility] White Blood 9.3 10^ 3/uL N 3.5-10.8 [phone] Count Red Blood Count 4.67 10^6/uL N [...] 7.8 fL N 7.4-10.4 O P: 02/04/2019 [facility] O P: SEE 18 Giardia/Cryptospor [phone] Giardia/Cryptospor RESULT Screen Screen BELOW Laboratory test 01/19/2019 [facility] Copper, Serum 1.17 0. 19 finding [phone] g/mL 75 -1 .4 5 Zinc Serum 0.87 g/mL 0.66-1.10 20 Heavy Metal Blool 01/19/2019 [facility] Arsenic <1 ng /mL 0-12 21 [phone] Lead <1.0 g/dL 0.0-4.9 22 Mercury <1 ng/mL 0-9 23 Cadmium <0.2 ng/mL 0.0-4.[address] [place] [address] [facility] [place] First Name ALEXANDRA Ramirez Guardian Last Name AALIYAH Venous/Capillary Heavy Metals Venous Patient Race WHITE Submitting Laboratory Phone [phone] Laboratory test 01/19/2019 [facility] Hemoglobin A1c 5.8 % High 4.0-5.6 26 finding [phone] (Glyco HGB) CRP High Sensitivity 2.08 mg/L High <2.00 TSH (Thyroid Stimulating Horm) 1.82 mcIU/mL N 0.34-5.60 Free T4 1.00 ng/dL N 0.61-1.12 Ferritin 71.0 ng/mL N 11-307 Thyroperoxidase AB 0.97 IU/mL N <9 Insulin Level 7.5 mcIU/mL N 2.0-16.0 Thyroglobulin Antibody II 58.0 IU/mL High <4.0 Thyroxine 6.94 g/dL N 6.09-12.23 CBC Auto Diff 01/19/2019 [facility] White Blood 8.3 10^3/uL N 3.5-10.8 [phone] Count Red Blood Count 4.87 10^6/uL N [...] Blood Cells % 0 CBC Auto 01/12/2019 [facility] White Blood 13.5 10^3/ uL High 3.5-10.8 Diff [phone] Count Red Blood Count 5.24 10^6/uL N [...] Blood Cells % 0 Laboratory test 01/12/2019 [facility] Lactic Acid 0.7 mmol/L N 0.5-2.0 27 finding [phone] Comp Metabolic 01/12/2019 [facility] Sodium 138 mmol/ L N 135-145 Panel [phone] Potassium 3.8 mmol/L N 3.5-5.0 Chloride 102 [...] Egfr Non- 82.6 >60 Egfr 100.0 >60 28 Laboratory test 01/12/2019 [facility] Lipase 29 U/L N 11.0-82.0 finding [phone] C Reactive Protein 2.18 mg/L N <8.01 HCG < 0.60 mIU/mL 29 Laboratory test 01/10/2019 [facility] Anti Ssa/Ro < 0.2 U 30 finding [phone] Anti SSB LA <0.2 U 31 C Reactive Protein 3.43 mg/L N <8.01 32 Cyclic Citrullinated Pep Igg <15.6 U 33 Creatine Kinase(CK) 58 U/L N 10-223 34 Hla B27 01/10/2019 [facility] Hla B27 Negative 35 [phone] Hla B27 Interp See Comment 36 Laboratory test 01/10/2019 [facility] Rheumatoid < 10 IU/mL N <15 37 finding [phone] Factor Anti Nuclear Antibody 0.4 U 38 Lyme Western 12/16/2018 [facility] Lyme Disease Negative Negative Blot [phone] IgG Ab WB Lyme Disease IgG Bands Present p41,p39 kDa Lyme Disease IgM Ab WB Negative Negative Lyme Disease IgM Bands Present No bands detecte <SEE NOTE> kDa 39 Lyme Disease Interpretation See Comment 40 Laboratory test 12/16/2018 [facility] HCG < 0.60 mIU/mL 41 finding [phone] TSH (Thyroid Stim Horm) 1.13 mcIU/mL N 0.34-5.60 Free T4 (Free Thyroxine) 0.69 ng/dL N 0.61-1.12 Vitamin B12 536 pg/mL N 180-914 42 Vitamin D Total 25(Oh) 28.7 ng/mL N 20-50 Basic Metabolic 12/16/2018 [facility] Sodium 138 mmol /L N 135-145 Panel [phone] Potassium 4.4 mmol/L N 3.5-5.0 Chloride 105 mmol/L N 101-111 Co2 Carbon Dioxide 26 mmol/L N 22-32 Anion Gap 7 mmol/L N 2-11 Glucose 115 mg/dL High 70-100 Blood Urea Nitrogen 16 mg/dL N 6-24 Creatinine 0.86 mg/dL N 0.51-0.95 BUN/Creatinine Ratio 18.6 N 8-20 Calcium 9.7 mg/dL N 8.6-10.3 Egfr Non- 72.7 >60 Egfr 88.0 >60 43 CBC Auto Diff 12/16/2018 [facility] White Blood 8.9 10^3/uL N 3.5-10.8 [phone] Count Red Blood Count 4.77 10^6/uL N [...] Blood Cells % 0.1 Laboratory test 08/23/2018 [facility] TSH (Thyroid 2.20 mcIU/mL N 0.34-5.60 44 finding [phone] Stim Horm) CBC Auto Diff 08/23/2018 [facility] White Blood 8.9 10^3/uL N 3.5-10.8 [phone] Count Red Blood Count 4.49 10^6/uL N [...] Nucleated Red Blood Cells % 0.2 Laboratory 06/21/2018 [facility] Surgical Interface SEE RESULT 45 test finding [phone] Order BELOW Stool Occult 06/16/2018 [facility] Stool Occult Blood , SEE RESULT 46 Blood Diag [phone] Diag BELOW Laboratory 06/16/2018 [facility] Helico Pylori Negative Negative 47 test finding [phone] Antigen- Stool Stool Panel 06/16/2018 [facility] C Difficile PCR SEE RESULT 48 (CMC) [phone] BELOW Laboratory 06/11/2018 [facility] Tissue <1.2 U/mL 49 test finding [phone] Transglutaminase Igg AB Tissue Transglutaminase IgA Ab <1.2 U/mL 50 Anti Gliadin Igg And 06/11/2018 [facility] Gliadin IgG <10.0 U 51 Iga AB [phone] Gliadin IgA <10.0 U 52 Laboratory test 06/11/2018 [facility] Anti Negative Negative 53 finding [phone] Endomysial Antibody CBC Auto Diff 06/11/2018 [facility] White Blood 7.3 10^3/uL N 3.5-10.8 [phone] Count Red Blood Count 4.86 10^6/uL N [...] Blood Cells % 0 Laboratory test 06/11/2018 [facility] Lipase 23 U/L N 11.0-82.0 finding [phone] C Reactive Protein 1.77 mg/L N <8.01 Comp Metabolic Panel 06/11/2018 [facility] Sodium 136 mmol/L N 135-145 [phone] Potassium 4.1 mmol/L N 3.5-5.0 Chloride 108 [...] Egfr Non- 86.9 >60 Egfr 105.2 >60 54 Laboratory 02/21/2018 [facility] Vitamin D, 1,25 81 pg/mL Abnormal 18-78 55 test finding [phone] Dihydroxy Laboratory 01/13/2018 [facility] Cytology Non-Child Care [facility] Administrator SEE 56 test finding [phone] RESULT BELOW Lipid Profile 01/13/2018 [facility] Triglycerides 296 mg/dL 57 (Trig/Chol/HDL [phone] ) Cholesterol 276 mg/dL 58 HDL Cholesterol 61.7 mg/dL 59 LDL Cholesterol 155 mg/dL 60 Laboratory test 01/13/2018 [facility] TSH (Thyroid 2.87 mcIU/mL N 0.34-5.60 61 finding [phone] Stim Horm) Vitamin D Total 25(Oh) 13.5 ng/mL Low 20-50 62 Hemoglobin A1c (Glyco HGB) 5.7 % High 4.0-5.6 63 Comp Metabolic Panel 01/13/2018 [facility] Sodium 136 mmol/L N 133-145 [phone] Potassium 4.4 mmol/L N 3.5-5.0 Chloride 102 [...] Egfr Non- 94.2 >60 Egfr 121.2 >60 64 CBC Auto Diff 01/13/2018 [facility] White Blood 9.0 10^3/uL N 3.5-10.8 [phone] Count Red Blood Count 4.67 10^6/uL N [...] Nucleated Red Blood Cells % 0.1 1 Test Performed by: [facility] [address] [place] [address] Markus Navarrete M.D. Director of Laboratory 2 Test Performed by: [facility] [address] [place] [address] Markus Navarrete M.D. Director of Laboratory 3 REFERENCE VALUE <=1.0 (Negative) 4 REFERENCE VALUE <20.0 (Negative) 5 Tests for antibodies to dsDNA and RAUDEL antigens are not performed automatically unless the JELLY result is > or= 3.0 U. Studies performed at [facility] indicate that positive JELLY results <3.0 U are rarely accompanied by positive second order tests. Test Performed by: [facility] - [facility] [place] [address] 6 Test Performed by: [facility] - [facility] [address] [place] [address] 7 REFERENCE VALUE <0.4 (Negative) 8 REFERENCE VALUE <0.4 (Negative) Test Performed by: [facility] [place] [address] 9 No bands detected 10 Specific serologic response to B. burgdorferi infection [...] >=30 days of symptoms. Test Performed by: [facility] [place] [address] 11 Test Performed by: [facility] - [address] [address] 12 Test Performed by: [facility] [address] 13 ADDITIONAL INFORMATION This test was developed using an analyte specific reagent. Its performance characteristics were determined by [facility] in a manner consistent with CLIA requirements. This test has not been cleared or approved by the U.S. Food and Drug Administration. 14 ADDITIONAL INFORMATION This test was developed using an analyte specific reagent. Its performance characteristics were determined by [facility] in a manner consistent with CLIA requirements. This test has not been cleared or approved by the U.S. Food and Drug Administration. 15 ADDITIONAL INFORMATION This test was developed using an analyte specific reagent. Its performance characteristics were determined by [facility] in a manner consistent with CLIA requirements. This test has not been cleared or approved by the U.S. Food and Drug Administration. 16 No evidence of antibodies to B. burgdorferi detected. False negative results may occur in recently infected patients (<=2 weeks) due to low or undetectable antibody levels to B. burgdorferi. If recent exposure is suspected, a second sample should be collected and tested in 2-4 weeks. Test Performed by: [facility] - [facility] [address] [place] [address] 17 Because ethnic data is not always readily [...] 15-29 5 Kidney failure <15 (or dialysis) 18 SEE RESULT BELOW Name: ALEXANDRA HERNANDEZ : [address]: Nargis Bach NP Acct: [id number] Unit: [id number] AGE: 43 Location: [facility] Re02/04/19 SEX: F Status: REG REF SPEC: [id number] JAH: 02/04/[address]: Nargis Bach NP REQ: [id number] RECD: 02/04/19 STATUS: SHANIQUE LOVELL DR: Ney Javed NP _ SOURCE: STOOL SPDESC: ORDERED: O P: Giar/Crypt Procedure Result Reported Site O P: Giardia/Cryptospor Screen Final 02/06/19- 1145 ML Organism 1 Neg Cryptosporidium/Giardia * - [facility] . END OF REPORT DEPARTMENT OF PATHOLOGY, [address] [place] [address] Markus Navarrete M.D. Director [facility] # [id number] 19 ADDITIONAL INFORMATION This test was developed and its performance characteristics determined by [facility] in a manner consistent with CLIA requirements. This test has not been cleared or approved by the U.S. Food and Drug Administration. Test Performed by: [facility] - [address] [address] 20 ADDITIONAL INFORMATION This test was developed and its performance characteristics determined by [facility] in a manner consistent with CLIA requirements. This test has not been cleared or approved by the U.S. Food and Drug Administration. Test Performed by: [facility] - [address] [address] 21 ADDITIONAL INFORMATION This test was developed and its performance characteristics determined by [facility] in a manner consistent with CLIA requirements. This test has not been cleared or approved by the U.S. Food and Drug Administration. 22 ADDITIONAL INFORMATION Testing performed by Inductively Coupled Plasma-Mass Spectrometry (ICP-MS). This test was developed and its performance characteristics determined by [facility] in a manner consistent with CLIA requirements. This test has not been cleared or approved by the U.S. Food and Drug Administration. 23 ADDITIONAL INFORMATION This test was developed and its performance characteristics determined by [facility] in a manner consistent with CLIA requirements. This test has not been cleared or approved by the U.S. Food and Drug Administration. 24 ADDITIONAL INFORMATION This test was developed and its performance characteristics determined by [facility] in a manner consistent with CLIA requirements. This test has not been cleared or approved by the U.S. Food and Drug Administration. 25 Test Performed by: [facility] - [address] [address] 26 Therapeutic target for the treatment of diabetes mellitus patients is <7% HBA1C, and in selective patients <6.0%. Please refer to [place] [employer] diabetic care guidelines for further information. 27 [facility] Severe Sepsis and Septic Shock Management Bundle Measure requires all lactic acids initially measuring >2.0 mmol/L be repeated. 28 Because ethnic data is not always [...] 5 Kidney failure <15 (or dialysis) 29 <5.0 Negative 5.0 - 25.0 Indeterminate (Repeat testing recommended after 72 hours) >25.0 Positive Perimenopausal women can display HCG levels of up to 20 mIU/mL 30 REFERENCE VALUE <1.0 (Negative) Test Performed by: [facility] [place] [address] 31 REFERENCE VALUE <1.0 (Negative) Test Performed by: [facility] [address] [place] [address] 32 [id number] 33 REFERENCE VALUE <20.0 (Negative) Test Performed by: [facility] [employer] [place] [id number] 34 [id number] REFERENCE VALUE Not Applicable 36 RESULT: HLA-B27 antigen was not detected. ADDITIONAL INFORMATION Method: Flow Cytometry Performing Laboratory CLIA# [id number] Test Performed by: [facility] - [facility] [address] [place] [address] 37 [id number] REFERENCE VALUE <=1.0 (Negative) Test Performed by: [facility] [address] [place] [address] 39 No bands detected 40 Specific serologic response to B. burgdorferi infection [...] >=30 days of symptoms. Test Performed by: [facility] [address] [place] [address] 41 <5.0 Negative 5.0 - 25.0 Indeterminate (Repeat testing recommended after 72 hours) >25.0 Positive Perimenopausal women can display HCG levels of up to 20 mIU/mL 42 Normal Range 180 to 914 Indeterminate Range 145 to 180 Deficient Range <145 43 Because ethnic data is not always readily [...] 15-29 5 Kidney failure <15 (or dialysis) 44 [id number] 45 SEE RESULT BELOW Name: AALIYAHALEXANDRA James : [address]: Nish Martinez MD Acct: [id number] Unit: [id number] AGE: 42 Location: ENDO Re06/21/18 SEX: F Status: DEP REF SPEC: [id number] JAH: 06/21/18-1329 [facility] DR: Nish Martinez MD REQ: [id number] RECD: 06/21/184717 STATUS: MILA LOVELL DR: Ney Javed 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 [...] CONTINUED ON NEXT PAGE DEPARTMENT OF PATHOLOGY, [address] [place] [address] Markus Navarrete M.D. Director BER[facility]DINE # [id number] RUN DATE: 06/22/18 [facility] LIVE PAGE 2 Patient: ALEXANDRA HERNANDEZ [id number] (Continued) GROSS DESCRIPTION (Continued) GROSS DESCRIPTION (Continued) [...] 1630 END OF REPORT DEPARTMENT OF PATHOLOGY, [address] [place] [address] Markus Navarrete M.D. Director [facility] # [id number] 46 SEE RESULT BELOW Name: ALEXANDRA HERNANDEZ : [address]: Ney Javed NP Acct: [id number] Unit: [id number] AGE: 42 Location: [facility] Re06/16/18 SEX: F Status: REG REF SPEC: [id number] JAH: 06/16/18-[address]: Ney Javed NP REQ: [id number] RECD: 06/16/18 STATUS: COMP _ SOURCE: STOOL [...] CONTINUED ON NEXT PAGE DEPARTMENT OF PATHOLOGY, [address] [place] [address] Markus Navarrete M.D. Director [facility] # [id number] Patient: ALEXANDRA HERNANDEZ [id number] (Continued) Specimen: [id number] Collected: 06/16/18 Received: 06/16/18 (Continued) Procedure Result [...] is requested. Contact the Microbiology Department at [phone]. TEST LIMITATIONS: As with all diagnostic procedures, [...] CONTINUED ON NEXT PAGE DEPARTMENT OF PATHOLOGY, [address] [place] [address] Markus Navarrete M.D. Director [facility] # [id number] Patient: AALIYAHALEXANDRA [id number] (Continued) Specimen: [id number] Collected: 06/16/18 Received: 06/16/18-1051 (Continued) Procedure Result Reported Site O P: Giardia/Cryptospor Screen Final (continued) 06/16/18- 8 it is recommended that three specimens be [...] . END OF REPORT DEPARTMENT OF PATHOLOGY, [address] [place] [address] Markus Navarrete M.D. Director [facility] # [id number] 47 Test Performed by: [address] [address] 48 SEE RESULT BELOW Name: ALEXANDRA HERNANDEZ : [address]: Ney Javed NP Acct: [id number] Unit: [id number] AGE: 42 Location: [facility] Re06/16/18 SEX: F Status: REG REF SPEC: [id number] JAH: 06/16/18-[address]: Ney Javed NP REQ: [id number] RECD: 06/16/18 STATUS: RES _ SOURCE: STOOL [...] O P: Giardia/Cryptospor Screen PENDING * - [facility] . END OF REPORT DEPARTMENT OF PATHOLOGY, [address] [place] [address] Markus Navarrete M.D. Director [facility] # [id number] 49 REFERENCE VALUE <6.0 (Negative) Test Performed by: [facility] [address] [place] [address] 50 REFERENCE VALUE <4.0 (Negative) Test Performed by: [facility] [address] [place] [address] 51 REFERENCE VALUE <20.0 (Negative) Test Performed by: [facility] [address] [place] [address] 52 REFERENCE VALUE <20.0 (Negative) 53 A negative serum IgA endomysial antibody is [...] as indicated by the Celiac Disease [facility] [place] ([facility] Test [facility] Code CDCOM). In addition serum IgA endomysial antibody may also be negative in gluten-sensitive patients (with celiac disease, dermatitis herpetiformis or other gluten-sensitive disorders), who adhere to a strict gluten-free diet. ADDITIONAL INFORMATION This test has been modified from the graphite mill operator's instructions. Its performance characteristics were determined by [facility] in a manner consistent with CLIA requirements. This test has not been cleared or approved by the U.S. Food and Drug Administration. Test Performed by: [facility] - [address] [address] 54 Because ethnic data is not always [...] 5 Kidney failure <15 (or dialysis) 55 ADDITIONAL INFORMATION This test was developed and its performance characteristics determined by [facility] in a manner consistent with CLIA requirements. This test has not been cleared or approved by the U.S. Food and Drug Administration. Test Performed by: [facility] [address] [place] [address] 56 SEE RESULT BELOW Name: ALEXANDRA HERNANDEZ : [address]: Ney Javed NP Acct: [id number] Unit: [id number] AGE: 42 Location: [facility] Re01/14/18 SEX: F Status: REG REF SPEC: [id number] JAH: 01/13/18-[address]: Ney Javed NP REQ: [id number] RECD: 01/14/182479 STATUS: SOUT _ ORDERED: NG THIN LAYER COMMENTS: [id number] FINAL DIAGNOSIS Urine, voided: Negative for malignant cells. URINE VOID CLINICAL HISTORY Micro hematuria GROSS DESCRIPTION 50 mls cloudy straw colored fluid Signed (signature on file) Meera Julio MD 191 END OF REPORT * ML=Testing performed at Main Lab DEPARTMENT OF PATHOLOGY, [address] [place] [address] Markus Navarrete M.D. Director [facility] # [id number] 57 Desirable: <150 Borderline High: 150-199 High: 200-499 Very High: >500 58 Desirable: <200 Borderline High: 200-239 High: >239 59 Low: <40 Desirable: 40-60 High: >60 60 Desirable: <100 Near Optimal: 100-129 Borderline High: 130-159 High: 160-189 Very High: >189 61 [id number] 63 Therapeutic target for the treatment of diabetes mellitus patients is <7% HBA1C, and in selective patients <6.0%. Please refer to [place] [employer] diabetic care guidelines for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
--- OUTSIDE RECORDS SUMMARY | 2019-03-30 16:21 | XMS REPORT | Continuity of Care Document ---
:1975 External Reference #:[id number] Author Name Ruma Guillen PA-C Address [address] [place] [address] Care Team Providers Name Role Phone Ney Javed F.N.P. Care Team Information Camera Storage Clerk Unavailable Ney Javed F.N.P. Primary Care Physician Unavailable Payers Date Identification Numbers Payment Provider Subscriber Policy Number: [id number] [facility] eyeQ Alexandra Hernandez Group Number: [id number] [facility] [id number] Group Name: [id number] [place] [address] PayID: [id number] Advance Directives Description No Information Available Problems Active Problems Provider Date Dizziness and giddiness Jorge Bautista MD Onset: 02/27/2019 Family History Date Family Member(s) Observation Comments General Allergies General Asthma General Thyroid Disease General Vertigo Social History Type Date Description Comments Sex Unknown 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 Tobacco Use Start: Unknown End: Former Cigarette Smoker Unknown Tobacco Use Start: Unknown has never smoked cigars Tobacco Use Start: Unknown has never smoked a pipe Smokeless Tobacco has never used smokeless tobacco ETOH Use Currently rarely consumes alcohol Recreational Drug Use never used drugs Tobacco Use Start: Unknown End: Patient is a former smoker Unknown Smoking Status Reviewed: 03/14/19 Patient is a former smoker Allergies, Adverse Reactions, Alerts Description No Known Drug Allergies Medications Active Medications SIG Qnty Indications Ordering Provider Date Omeprazole 1 tab by mouth 30 Unknown 20mg min before Capsules DR breakfast and dinner Valium 1 tab by mouth Unknown 2mg Tablets every 12 hours as needed for as needed Ibuprofen 1 by mouth three Unknown 600mg Tablets times a day with food Flexeril 5 mg prn Unknown Doxycycline Take One Capsule By Unknown Monohydrate Mouth Twice A Day 100mg For 21 Days Capsules Gabapentin Take 1 Capsule AT Unknown 300mg Bedtime For 3 Capsules Nights Then Increase To Take 1 Capsule Two Times A Day History Medications Medrol take as directed 1pack R42 Jorge Bautista MD 02/27/2019 - 4mg TBPK 03/14/2019 Lortab Elixir 1 tablespoon (15 450ml 474.00 Lg Guerrero, 01/31/2009 - ml) by mouth every MD 02/26/2019 2.5mg/5 ML Elixir 4-6 hours as needed for pain Prednisone 2 tabs daily for 5 10tabs 474.00 Lg Guerrero, 01/31/2009 - 20mg days 02/26/2019 Tablets Alesse Unknown - -28 02/27/2019 Tablets Effexor Heidy Henderson M.D. - 75mg 02/27/2019 Tablets Immunizations Description No Information Available Vital Signs Date Vital Result Comment 03/14/2019 3:05pm Weight 155.00 lb Weight 70.308 kg Height 63 inches 5'3" Height in cm's 160.0 cm BMI (Body Mass Index) 27.5 kg/m2 BP Systolic Sitting Resting Right Arm 110 mmHg BP Diastolic Sitting Resting Right Arm 60 mmHg BP Systolic Lying Down 115 mmHg BP Diastolic Lying Down 60 mmHg BP Systolic Sitting 115 mmHg BP Diastolic Sitting 80 mmHg BP Systolic Standing 118 mmHg BP Diastolic Standing 85 mmHg 02/27/2019 11:26am Weight 155.00 lb Weight 70.308 kg Height 63 inches 5'3" Height in cm's 160.0 cm BMI (Body Mass Index) 27.5 kg/m2 01/31/2009 1:48pm Heart Rate 84 /min Respiratory Rate 16 /min Weight 128.00 lb Weight 58.061 kg 02/09/2008 10:23am BP Systolic 119 mmHg BP Diastolic 69 mmHg Heart Rate 82 /min Respiratory Rate 15 /min 12/15/2007 9:16am BP Systolic 111 mmHg BP Diastolic 74 mmHg Heart Rate 82 /min Respiratory Rate 14 /min Results Test Date Facility Test Result H/L Range Note Surgical 02/12/2009 [facility] Surgical 1 Pathology c/o Department of Laboratories Pathology ---- <[place] [address] NOTE> [phone] 1 --- RUN DATE: 02/14/09 [facility] NMI LIVE PAGE 1 RUN TIME: 439 Specimen Inquiry RUN USER: INTERFACE -- Name: ALEXANDRA HERNANDEZ Status: [facility] Re02/12/09 Age/Sex: 33/F Unit#: [id number] Location: [facility] : [birth year] -- Specimen: [id number] SOUT Spec Date: 02/12/[address]: Lg Guerrero MD Spec Type: SURGICAL P Received: 02/13/09-1355 Copies to: SPECIMEN 1) RIGHT TONSIL 2) LEFT TONSIL HISTORY PRE-OP DIAGNOSIS: Chronic tonsillitis. GROSS DESCRIPTION 1) Specimen is received in formalin labelled Alexandra David, Right Tonsil and consists of a tonsil measuring 2.4 x 1.8 x 1.2 cm. Cut section demonstrates lobulated, keenan-johnson, focally hemorrhagic, fleshy parenchyma. Manager Workers Compensation section, one cassette. 2) Specimen is received in formalin labelled Alexandra Hernandez, Left Tonsil and consists of a tonsil measuring 2.3 x 1.8 x 1.5 cm. Cut section reveals lobulated, keenan, fleshy parenchyma. Manager Workers Compensation section, one cassette. DIAGNOSIS 1) Oral pharynx, right tonsil, tonsillectomy: Follicular lymphoid hyperplasia. 2) Oral pharynx, left tonsil, tonsillectomy: Follicular lymphoid hyperplasia. Signed Electronically by: MARKUS NAVARRETE MD 02/14/09 1451 -- -- DEPARTMENT OF PATHOLOGY, [address] [place] [address] [facility] Permit #[id number] Markus Navarrete M.D. Director Brandon Hilliard M.D. Regional Production Manager Dir pattonor -- Procedures Date Code Description Status 02/27/2019 33577 Tympanometry Completed 02/27/2019 37499 Comprehensive Audiogram Completed 02/12/2009 78572 Tonsillectomy Age 12 And Over Completed Encounters Type Date Location Provider Dx Diagnosis Office Visit 02/27/2019 [place],After Jorge Bautista R42 Dizziness and 11:30a 11/29/07 giddiness Office Visit 01/31/2009 [place],After Lg Logan.00 Tonsillitis, 1:45p 11/29/07 MD Yolanda Chronic Office Visit 02/09/2008 [place],After Lg Logan.00 Tonsillitis, 10:15a 11/29/07 MD Yolanda Chronic Office Visit 12/15/2007 [place],After Lg Logan.00 Tonsillitis, 9:15a 11/29/07 MD Yolanda Chronic Plan of Treatment 03/14/2019 - JANETH Mares-CR42 Dizziness and xsfrjuhxuT85.03 Otalgia, rhxtjwqjaA03.2 NyxdifzivuzF36.83 Other fatigueComments:03/09/2019 - MRI BRAIN W/ WO
[2019-03-30 16:45] LABS: ABS Basophils 0.1 10^3/ul (0-0.2); ABS Eosinophils 0.2 10^3/ul (0-0.6); ABS Lymphocytes 2.4 10^3/ul (1.0-4.8); ABS Monocytes 0.6 10^3/ul (0-0.8); ABS Neutrophils 3.8 10^3/ul (1.5-7.7); Hematocrit 45 % (35-47); Hemoglobin 15.2 g/dL (12.0-16.0); Lymphocyte % 34.1 %; Mean Corpuscular HGB Conc 34 g/dL (31-36); Mean Corpuscular Hemoglobin 31 pg (27-31); Mean Corpuscular Volume 90 fL (80-97); Mean Platelet Volume 7.7 fL (7.4-10.4); Platelet Count 360 10^3/uL (150-450); Red Blood Count 4.97 10^6 /uL (3.70-4.87); Red Cell Distribution Width 14 % (10.5-15); White Blood Count 7.2 10^3/uL (3.5-10.8)
[2019-03-30 16:55] LABS: INR 1.07 (0.82-1.09)
[2019-03-30 17:03] LABS: Albumin 4.7 g/dL (3.2-5.2); Albumin/Globulin Ratio 1.6 (1-3); BUN/Creatinine Ratio 13.3 (8-20); Calcium 9.8 mg/dL (8.6-10.3); EGFR African American 83.5 (>60); Magnesium 2.2 mg/dL (1.9-2.7); Potassium 3.9 mmol/L (3.5-5.0); Total Bilirubin 0.5 mg/dL (0.2-1.0); Total Protein 7.7 g/dL (6.4-8.9)
[2019-03-30 17:11] LABS: Urine Appearance Clear; Urine Bacteria 1+ (Absent); Urine Bilirubin Negative (Negative); Urine Blood Negative (Negative); Urine Color Yellow; Urine Glucose Negative (Negative); Urine Ketones Negative (Negative); Urine Nitrite Negative (Negative); Urine Protein Negative (Negative); Urine Red Blood Cell Trace(0-2/hpf) (Absent); Urine Squamous Epithelial Cell Present (Absent); Urine Urobilinogen Negative (Negative); Urine White Blood Cell Trace(0-5/hpf) (Absent)
[2019-03-30 17:26] VITALS: BP 116/79
--- NOTE | 2019-03-30 20:38 | CONS ---
NEUROLOGY CONSULTATION NOTE: DATE OF CONSULT: 03/30/19 - EMERGENCY DEPT CONSULTING PROVIDER: Dr. Saúl Espinosa. REASON FOR CONSULT: Double vision. CHIEF COMPLAINT: Double vision. HISTORY OF PRESENT ILLNESS: Mrs. Alexandra Hernandez is a 43-year-old female who has had a constellation of neurological and nonneurological complaints for the past 2 months. According to her , the patient started becoming ill early November, but her illness worsened in January 2019. Apparently, the patient was going through a cycle of their children and everyone around her is sick at home with pneumonia and upper respiratory tract infections. Since January 2019, Mrs. Hernandez started becoming dizzy. The dizziness is intermittent, but can last throughout the day. The dizziness is described as lightheadedness. She feels unsteady when she is walking. She feels her brain is wobbly. She denied any vertigo. She feels dizzy and disoriented in space, depth, and perception at times. This afternoon, the patient stated that she started seeing double. The double vision is involving both eyes, but it seems to improve when both eyes are open. When she closes the right eye, she sees a haziness next to the pen, but then when she closes the left eye, she sees a longer and more pronounced haziness next to the pen. When opening both eyes, this hazy sensation resolves. She is also complaining of tingling sensation around her mouth for the last few weeks. She started developing headaches and sharp shooting pain in the temporalis area bilaterally. She thought she had temporal arteritis, but a recent ESR and CRP were normal. She also has intermittent abnormal smelling sensation of this chemical smell that is actually not there. She has trouble describing these symptoms, but states that her brain cannot really function like it used to. She feels like she is going to pass out when getting out of bed in the morning. She has had multiple workups in the past with nothing that is revealing. In regards to the headaches, she endorses a daily constant headache, tingling in the side of her head, and pain that is 5-8/10 in severity. She has radiating pain to the neck area. She does have occasional nausea and photophobia. She does have black floaters in the vision as well usually presenting the headache. The patient stated that she was recently started on Lexapro yesterday for depression. She denied sexual or physical abuse. She also was taking ibuprofen and had an endoscopy with no significantly abnormal findings. She was advised to discontinue the ibuprofen intake that she was taking for her migraines. 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 She had no intracranial abnormalities. No white matter lesions. She had a cervical spine MRI without contrast that showed no evidence of cervical spondylosis or intramedullary lesions. The patient had a significant amount of workup in the past with recent sodium level measuring 140, potassium 3.9, chloride 106, BUN of 12, creatinine of 0.90, hemoglobin 5.8, AST 14, ALT 15, C-reactive protein 1.21 and previous labs, which include a vitamin D level of 81, vitamin B12 of 536, TSH of 1.82, free T4 is 1. She had an elevated thyroglobulin antibody of unclear etiology. She had serology testing for Lyme, which was negative. She also had serology testing for multiple other infections such as toxoplasmosis, HPV, gonorrhea, HIV, EBV, West Nile, which all came back negative. Immunological markers such as JELLY, rheumatoid factor, CCP, myeloperoxidase antibody, SSA, SSB, acetylcholine receptor binding antibody, which are still pending, but everything else is negative, except for the thyroglobulin antibody. She also had antigliadin and narcolepsy associated antibodies tested, which were negative. The patient had heavy metal screening for zinc, mercury, lead, copper, cadmium, arsenic, which were also negative. PAST MEDICAL HISTORY: Mild anxiety and depression since her undiagnosed multiple symptoms. MEDICATIONS: Lexapro 5 mg daily. ALLERGIES: ADHESIVE and LATEX. FAMILY HISTORY: No family history of stroke or seizures. 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 She denied any tobacco or alcohol use. REVIEW OF SYSTEMS: A 14-point review of systems was obtained and otherwise negative, except for what was mentioned in the HPI. PHYSICAL EXAMINATION: Vitals: Temperature of 98.4, pulse of 85, respirations of 18, oxygen saturation of 98%, blood pressure of 116/79. General: Well- nourished, well-developed female, in no acute distress. Head: Normocephalic, atraumatic. Eyes: Conjunctivae/corneas are clear. Undilated funduscopic examination showed no evidence of sharp disk margins. There is normal venous pulsation. No clear evidence of papilledema. Neck is supple and symmetrical with no carotid bruits. Lungs are clear to auscultation bilaterally. Cardiovascular: Regular rate and rhythm with normal S1, S2. Extremities: Normal range of motion with no cyanosis. Skin: No skin lesions or lacerations. Psych: Affect is broad with low mood. Easy to establish rapport. Neurological Examination: Mental status: Awake, alert, oriented to person; place; time and general circumstances. Speech and language including expression , naming, repetition, and comprehension were assessed and found to be normal. Cranial Nerves: Normal to confrontation testing bilaterally. Pupils are mid range and reactive to light. Normal consensual response. Sensation is intact on the forehead, cheeks, and jaw region bilaterally. No facial droop. She is able to hear throughout the history process. Symmetrical palatal elevation. Normal strength against resistance. Tongue is symmetrical and midline with no atrophy or fasciculation. Motor Examination: No abnormal movements or pronator drift. Normal bulk and tone throughout. No fasciculation; 5/5 strength in motor strength throughout the upper and lower distal and proximal muscles. Reflexes, right/left: Brachio-radialis 2/2, biceps 2/2, triceps 2/2, patella 2/2, ankle 2/2, plantar flexor/flexor. Sensation is intact to light touch and temperature throughout. Normal vibration and proprioception at the great toe bilaterally. Coordination: Normal finger- to-nose and rapid alternating movements. Gait and Station: Narrow based and normal stance and gait. No ataxia. ASSESSMENT AND RECOMMENDATIONS: Mrs. Alexandra Hernandez is a 43-year-old female who is fairly healthy with no evidence of any focal lateralizing neurological deficits on examination today who presents with a constellation of complaints including subacute to chronic dizziness, chronic daily headaches, chronic fatigue, and new onset of monocular horizontal diplopia. On funduscopic examination, there is no evidence of elevated intracranial pressure. Actually, the monocular diplopia is not suggestive of any neurological conditions. Her MRI earlier in the month of February was unremarkable for any demyelinating lesions or stroke. I suspect the patient has migraine headaches with a combination of complicated migraine headaches as well as migraines with aura. I recommend magnesium supplementation 400 mg daily. I recommend vitamin B complex, which has riboflavin, to be taken daily. In regards to her chronic fatigue, I recommend obtaining a sleep study to evaluate for obstructive sleep apnea or narcolepsy. I agree with the treatment of Lexapro to treat any underlying depression as these symptoms seem to be frustrating the patient and causing more increase in depression and anxiety symptoms. At this point, I do not have any further neurological recommendation. The patient will be seeing one of our neurologists at [facility] for further evaluation of the constellation of symptoms. Please note the patient also requested that I should consider treating her for Lyme disease and I did educate her in regards to the fact that she does not have Lyme and her Lyme titers in the past have been negative and therefore, there is no indication for treatment. Education counseling was provided to the patient and her . I reassured her that she does not have an irreversible, permanent brain injury at this time. We will be more than happy to follow up with her as an outpatient. Continue close monitoring and followup with your PCP. I discussed these findings and results with Dr. Espinosa. TIME SPENT: 65 minutes. [id number]/[facility] #: [id number] PEDRO
== END | disposition home or self-care (01) ==
LOC: ED 15:42
DX: H53.2 Diplopia (principal); K50.90 Crohn's disease, unspecified, without complications; F41.9 Anxiety disorder, unspecified; F32.9 Major depressive disorder, single episode, unspecified; Z91.040 Latex allergy status
CPT/HCPCS: 36415; 80053; 81003; 83605; 83735; 84484; 85025; 85610; 87086; 93005; 99282

== ENCOUNTER → 2019-06-03 12:24 | Emergency (ER) | payer OTHER ==
--- OUTSIDE RECORDS SUMMARY | 2019-06-03 13:04 | XMS REPORT | Continuity of Care Document ---
:1975 External Reference #:[id number] Author Name TejasBarbie whelan Care Team Providers Name Role Phone Héctor Alberto MD Primary Care Physician Unavailable Payers Date Identification Numbers Payment Provider Subscriber Policy Number: [id number] [employer] Alexandra Fischer PayID: [id number] [address] [place] [address] Problems Active Problems Provider Date Gallstone Nargis Bach NP Onset: 02/01/2019 Note: positive on US Family History Date Family Member(s) Observation Comments General Brother has had gout and psoriasis Father Hypertension as of 2018 no complications Father Seizure Disorder Father Depression Mother Hypothyroidism Mother Arthritis Mother anxiety Mother Seasonal Allergies Mother Alive And Well Mother Irritable bowel syndrome Mother Meniere's First Brother Seizure Disorder First Brother Depression First Brother Seasonal Allergies First Brother ADHD First Sister Asthma First Sister Seasonal Allergies Paternal Grandfather Seizure Disorder Paternal Grandfather Depression Paternal Grandmother Breast Cancer Paternal Grandmother Heart Disease Paternal Grandmother Hypertension Paternal Grandmother Arthritis Maternal Grandfather Cancer Maternal Grandfather Hypertension Maternal Grandfather Obesity Maternal Grandfather Arthritis Maternal Grandmother Breast Cancer Maternal Grandmother Heart Disease Maternal Grandmother Hypertension Maternal Grandmother Diabetes Maternal Grandmother Arthritis Maternal Grandmother Thyroid Disease Social History Type Date Description Comments Sex Unknown 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 05/05/2019 Micronized Day 12-Day 28 of 100mg your menstrual Capsules cycle Multivitamin Adult 1 by mouth every Unknown day Tablets Vitamin D-3 1 by mouth every Unknown 1000Unit day Capsules Vitamin C 1 by mouth once Unknown W/Vitamin E daily [id number] Capsules Odorless Coated Fish take one Unknown Oil/[place]-3 capsule/tablet 1000mg daily by mouth Capsules DR Lindo 1 by mouth every Unknown 10mg Tablets day Zyrtec Allergy 1 by mouth every Unknown 10mg day Tablets Flonase Allergy 1 puff nasal twice Unknown Relief a day 50mcg/Act Suspension History Medications Omeprazole 1 by mouth every 30caps Nargis Bach NP 02/01/2019 - 20mg Capsules day 04/26/2019 No Active Medications Unknown 05/13/2018 - 12/09/2018 Vital Signs Date Vital Result Comment 05/11/2019 7:51am Height 64 inches 5'4" Weight 144.12 lb Heart Rate 68 /min BP Systolic Sitting 110 mmHg BP Diastolic Sitting 62 mmHg Pain Level 4 O2 % BldC Oximetry 98 % BMI (Body Mass Index) 24.7 kg/m2 04/26/2019 12:57pm Height 64 inches 5'4" Weight 147.50 lb Heart Rate 73 /min BP Systolic 112 mmHg BP Diastolic 73 mmHg O2 % BldC Oximetry 98 % BMI (Body Mass Index) 25.3 kg/m2 Last Menstrual Period [id number] 02/21/2019 8:52am Height 64 inches 5'4" Weight 155.00 lb Heart Rate 73 /min BP Systolic 119 mmHg BP Diastolic 79 mmHg Respiratory Rate 20 /min Body Temperature 97.1 F O2 % BldC Oximetry 100 % BMI (Body Mass Index) 26.6 kg/m2 02/15/2019 9:56am Height 64 inches 5'4" Weight 151.00 lb Heart Rate 69 /min BP Systolic 114 mmHg BP Diastolic 77 mmHg Body Temperature 97.6 F O2 % BldC Oximetry 99 % BMI (Body Mass Index) 25.9 kg/m2 02/01/2019 8:33am Height 64 inches 5'4" Weight 157.12 lb Heart Rate 79 /min BP Systolic Sitting 107 mmHg reg adult cuff left arm BP Diastolic Sitting 70 mmHg reg adult cuff left arm Body Temperature 97.5 F O2 % BldC Oximetry 100 % at rest on room air BMI (Body Mass Index) 27.0 kg/m2 01/18/2019 12:55pm Height 64 inches 5'4" Weight 161.00 lb Heart Rate 86 /min BP Systolic 122 mmHg BP Diastolic 78 mmHg O2 % BldC Oximetry 98 % BMI (Body Mass Index) 27.6 kg/m2 01/10/2019 11:15am Height 64 inches 5'4" Weight [...] Mass Index) 27.6 kg/m2 Last Menstrual Period [id number] 12/09/2018 2:56pm Height 64 inches 5'4" Weight [...] Test Result H/L Range Note Laboratory test 04/26/2019 [facility] Estradiol 179 pg/mL [address] [place] [address] [phone] Progesterone 8.4 ng/mL 2 Laboratory test 03/08/2019 [facility] Clotest SEE RESULT 3 , [address] [place] [address] [phone] Laboratory test 03/08/2019 [facility] Surgical SEE RESULT 5 , [address] [place] [address] [phone] Liver Function 02/15/2019 [facility] Direct 0.10 mg/dL N 0.03 - Panel DRIVE Bilirubin 0.18 [place] [address] [phone] Indirect Bilirubin 0.2 mg/dL Low 0.3-1.0 CBC No Diff 02/15/2019 [facility] White Blood 9.3 10^3/uL N 3.5-10.[address] [place] [address] [phone] Red Blood Count 4.67 10^6/uL N 3.70-4.87 Hemoglobin 14.3 g/dL N 12.0-16.0 Hematocrit 42 % High 33-41 Mean Corpuscular Volume 91 fL N 80-97 Mean Corpuscular Hemoglobin 31 pg N 27-31 Mean Corpuscular HGB Conc 34 g/dL N 31-36 Red Cell Distribution Width 14 % N 10.5-15 Platelet Count 391 10^3/uL N 150-450 Mean Platelet Volume 7.8 fL N 7.4-10.4 Laboratory test finding 02/15/2019 [facility] Lipase 35 U/L N 11.0-82.[address] [place] [address] [phone] Amylase 43 U/L N 29-103 C Reactive Protein 2.71 mg/L N <8.01 Comp Metabolic Panel 02/15/2019 [facility] Sodium 138 mmol/L N 135-[address] [place] [address] [phone] Potassium 4.5 mmol/L N 3.5-5.0 Chloride 105 [...] Egfr Non- 83.9 >60 Egfr 101.5 >60 7 Laboratory test 02/04/2019 [facility] O&P Ova & <pending> finding [address] [place] [address] Screen [phone] O P: 02/04/2019 [facility] O P: SEE RESULT 8 Giardia/Cryptos [address] Giardia/Crypto [place] [address] spor Screen [phone] Laboratory test 02/04/2019 [facility] Stool Culture SEE RESULT 9, [address] [place] [address] [phone] Ova & Parasites 02/04/2019 [facility] Parasitic See Comment [address] Exam, [place] [address] [phone] CBC Auto Diff 01/19/2019 [facility] White Blood 8.3 10^3/uL N 3.5- [address] Count 10.8 [place] [address] [phone] Red Blood Count 4.87 10^6/uL N 4.00-5.40 [...] Blood Cells % 0 Laboratory test 01/19/2019 [facility] Hemoglobin A1c 5.8 % High 4.0-5.[address] (Glyco HGB) [place] [address] [phone] CRP High Sensitivity 2.08 mg/L High <2.00 TSH (Thyroid Stimulating Horm) 1.82 mcIU/mL N 0.34-5.60 Free T4 1.00 ng/dL N 0.61-1.12 Ferritin 71.0 ng/mL N 11-307 Thyroperoxidase AB 0.97 IU/mL N <9 Insulin Level 7.5 mcIU/mL N 2.0-16.0 Thyroglobulin Antibody II 58.0 IU/mL High <4.0 Thyroxine 6.94 g/dL N 6.09-12.23 Heavy Metal Blool 01/19/2019 [facility] Arsenic <1 ng/mL 0- [address] [place] [address] [phone] Lead <1.0 g/dL 0.0-4.9 14 Mercury <1 ng/mL 0-9 15 Cadmium <0.2 ng/mL 0.0-4.[address] [place], [place] [address] [facility] Guardian First Name ALEXANDRA Ramirez Guardian Last Name FAIRFAX Venous/Capillary Heavy Metals Venous Patient Race WHITE Submitting Laboratory Phone [phone] Laboratory test 01/19/2019 [facility] Copper, 1.17 g/mL 0.75-1.[address] [place] [address] [phone] Zinc Serum 0.87 g/mL 0.66-1.10 19 Laboratory test 12/16/2018 [facility] Cytology SEE RESULT [address] [place] [address] [phone] Basic Metabolic 12/16/2018 [facility] Sodium 138 mmol/L N 135- [address] [place] [address] [phone] Potassium 4.4 mmol/L N 3.5-5.0 Chloride 105 mmol/L N 101-111 Co2 Carbon Dioxide 26 mmol/L N 22-32 Anion Gap 7 mmol/L N 2-11 Glucose 115 mg/dL High 70-100 Blood Urea Nitrogen 16 mg/dL N 6-24 Creatinine 0.86 mg/dL N 0.51-0.95 BUN/Creatinine Ratio 18.6 N 8-20 Calcium 9.7 mg/dL N 8.6-10.3 Egfr Non- 72.7 >60 Egfr 88.0 >60 21 Lyme Western 12/16/2018 [facility] Lyme Disease Negative Negative Blot [address] [place] [address] [phone] Lyme Disease IgG Bands Present p41,p39 kDa Lyme Disease IgM Ab WB Negative Negative Lyme Disease IgM Bands Present No bands detecte <SEE NOTE> kDa 22 Lyme Disease Interpretation See Comment 23 Laboratory test 12/16/2018 [facility] HCG < 0.60 mIU/ mL [address] [place] [address] [phone] TSH (Thyroid Stim Horm) 1.13 mcIU/mL N 0.34-5.60 Vitamin B12 536 pg/mL N 180-914 25 Free T4 (Free Thyroxine) 0.69 ng/dL N 0.61-1.12 Vitamin D Total 25(Oh) 28.7 ng/mL N 20-50 CBC Auto Diff 12/16/2018 [facility] White Blood 8.9 10^3/uL N 3.5-10.[address] [place] [address] [phone] Red Blood Count 4.77 10^6/uL N 4.00-5.40 [...] Red Blood Cells % 0.1 Laboratory test finding 12/09/2018 [facility] Test Urine negative Ua Routine 12/09/2018 [facility] Ua Specific [place] 1.010 Ua PH 8 Ua Color yellow Ua Appera cloudy Ua WBC negative Ua Protein trace Ua Glucose normal Ua Ketones negative Ua Bilirubin negative Ua Urobilinogen normal Ua Nitrite negative Ua Occult Blood about 50 1 Estradiols <40 pg/mL are sent to a reference lab for low range testing. Postmenopausal Females < 20 Ovulating females: by day in cycle relative to LH Peak Follicular phase - 12 10-50 - 4 60-200 Mid-cycle - 1 120-375 Luteal phase + 2 50-155 + 6 60-260 + 12 15-115 2 Female reference ranges for Progesterone: Follicular phase.......0.3 - 1.5 ng/ml Mid-luteal phase.......5.2 - 18.5 ng/ml Postmenopausal.........< 0.8 ng/ml 1st trimester.........4.7 - 50.0 ng/ml 2nd trimester.........19.4 - 45.3 ng/ml 3 [id number] 4 SEE RESULT BELOW Name: ALEXANDRA FISCHER : [address]: Nish Martinez MD Acct: [id number] Unit: [id number] AGE: 43 Location: [facility] Re03/08/19 SEX: F Status: DEP REF SPEC: [id number] JAH: 03/08/19-[address] [facility] [address]: Nish Martinez MD REQ: [id number] RECD: 03/08/19 STATUS: SHANIQUE LOVELL DR: Ney Javed EXCHANGE TROUBLE SHOOTER _ SOURCE: GAS ANTRUM SPDESC: ORDERED: Clotest COMMENTS: [id number] Procedure Result Reported Site Clotest Final 03/09/19700 ML Clotest Negative * - Main Lab . END OF REPORT DEPARTMENT OF PATHOLOGY, [address] [place] [address] Markus Navarrete M.D. Director [facility] # [id number] 6 SEE RESULT BELOW Name: ALEXANDRA FISCHER : [address]: Nish Martinez MD Acct: [id number] Unit: [id number] AGE: 43 Location: [facility] Re03/08/19 SEX: F Status: DEP REF SPEC: [id number] JAH: 03/08/19-1153 [facility] [address]: Nish Martinez MD REQ: [id number] RECD: 03/08/190637 STATUS: MILA LOVELL DR: Ney Javed EXCHANGE TROUBLE SHOOTER _ ORDERED: LEVEL 4/3, IMMUNO-FIRST COMMENTS: [id number] ADDENDUM An H. pylori immunohistochemical stain, with [...] CONTINUED ON NEXT PAGE DEPARTMENT OF PATHOLOGY, [address] [place] [address] Markus Navarrete M.D. Director [facility] # [id number] RUN DATE: 03/10/19 [facility] LAB LIVE PAGE 2 Patient: ALEXANDRA FISCHER [id number] (Continued) CLINICAL HISTORY (Continued) CLINICAL HISTORY Pain [...] 1245 END OF REPORT DEPARTMENT OF PATHOLOGY, [address] [place] [address] Markus Navarrete M.D. Director [facility] # [id number] 7 Because ethnic data is not always [...] 5 Kidney failure <15 (or dialysis) 8 SEE RESULT BELOW Name: ALEXANDRA FISCHER : [address]: Nargis Bach NP Acct: [id number] Unit: [id number] AGE: 43 Location: [facility] Re02/04/19 SEX: F Status: REG REF SPEC: [id number] JAH: 02/04/[address]: Nargis Bach NP REQ: [id number] RECD: 02/04/19 STATUS: SHANIQUE LOVELL DR: Ney Javed NP _ SOURCE: STOOL SPDESC: ORDERED: O P: Giar/Crypt Procedure Result Reported Site O P: Giardia/Cryptospor Screen Final 02/06/19- 1145 ML Organism 1 Neg Cryptosporidium/Giardia * ML - Main Lab . END OF REPORT DEPARTMENT OF PATHOLOGY, [address] [place] [address] Markus Navarrete M.D. Director [facility] # [id number] 9 Unable to Perform Shiga Toxin Testing. Insufficient Growth of Enteric Bacteria. 10 SEE RESULT BELOW Name: ALEXANDRA FISCHER : [address]: Nargis Bach NP Acct: [id number] Unit: [id number] AGE: 43 Location: [facility] Re02/04/19 SEX: F Status: REG REF SPEC: [id number] JAH: 02/04/19-729 [facility] [address]: Nargis Bach NP REQ: [id number] RECD: 02/04/19 STATUS: COMP _ SOURCE: STOOL SPDESC: ORDERED: Stool Culture COMMENTS: Unable to Perform Shiga Toxin Testing. Insufficient Growth of Enteric Bacteria. Procedure Result Reported Site Stool Culture Final 02/06/19- 1027 ML Result No growth of normal enteric kareen No enteric pathogens isolated Testing for Salmonella, [...] the microbiology lab if sensitivities are required. Shiga Toxin 1 2 Final 02/06/19954 ML Test not performed * ML - [facility] . END OF REPORT DEPARTMENT OF PATHOLOGY, [address] [place] [address] Markus Navarrete M.D. Director [facility] # [id number] 11 SOURCE: STOOL PARASITIC EXAMINATION FINAL No parasites seen. Cryptosporidium, Cyclospora, and microsporidia are not readily detected by this method. Single negative specimen does not rule out parasitic infection. Test Performed by: [address] [address] 12 Therapeutic target for the treatment of diabetes mellitus patients is <7% HBA1C, and in selective patients <6.0%. Please refer to [place] [employer] diabetic care guidelines for further information. 13 ADDITIONAL INFORMATION This test was developed and its performance characteristics determined by [facility] in a manner consistent with CLIA requirements. This test has not been cleared or approved by the U.S. Food and Drug Administration. 14 ADDITIONAL INFORMATION Testing performed by Inductively Coupled Plasma-Mass Spectrometry (ICP-MS). This test was developed and its performance characteristics determined by [facility] in a manner consistent with CLIA requirements. This test has not been cleared or approved by the U.S. Food and Drug Administration. 15 ADDITIONAL INFORMATION This test was developed and its performance characteristics determined by [facility] in a manner consistent with CLIA requirements. This test has not been cleared or approved by the U.S. Food and Drug Administration. 16 ADDITIONAL INFORMATION This test was developed and its performance characteristics determined by [facility] in a manner consistent with CLIA requirements. This test has not been cleared or approved by the U.S. Food and Drug Administration. 17 Test Performed by: [facility] [address] 18 ADDITIONAL INFORMATION This test was developed and its performance characteristics determined by [facility] in a manner consistent with CLIA requirements. This test has not been cleared or approved by the U.S. Food and Drug Administration. Test Performed by: [facility] [address] 19 ADDITIONAL INFORMATION This test was developed and its performance characteristics determined by [facility] in a manner consistent with CLIA requirements. This test has not been cleared or approved by the U.S. Food and Drug Administration. Test Performed by: [facility] - [address] [address] 20 SEE RESULT BELOW Name: ALEXANDRA FISCHER : [address]: Dianne Rollins MD Acct: [id number] Unit: [id number] AGE: 43 Location: [facility] Re12/16/18 SEX: F Status: REG REF SPEC: [id number] JAH: 12/16/[address]: Dianne Rollins MD REQ: [id number] RECD: 12/16/18 STATUS: SOUT _ ORDERED: TP IMAGE ANALYS, HPV/Thin Prep COMMENTS: [id number] Negative for Intraepithelial lesion or Malignancy Date Time Test Result Flag (u) Normal Range 12/16/18 1529 @ HPV RNA Negative Negative @ @ [...] was evaluated with the assistance of the TeralynkPrep Test Imaging System. Due to cytologic findings at the research spec microscope, comprehensive manual rescreening by a Web Content Developer may be required. The Pap Smear is [...] years. END OF REPORT DEPARTMENT OF PATHOLOGY, [address] [place] [address] Markus Navarrete M.D. Director [facility] # [id number] 21 Because ethnic data is not always readily [...] 15-29 5 Kidney failure <15 (or dialysis) 22 No bands detected 23 Specific serologic response to B. burgdorferi infection [...] >=30 days of symptoms. Test Performed by: [facility] [address] [place] [address] 24 <5.0 Negative 5.0 - 25.0 Indeterminate (Repeat testing recommended after 72 hours) >25.0 Positive Perimenopausal women can display HCG levels of up to 20 mIU/mL 25 Normal Range 180 to 914 Indeterminate Range 145 to 180 Deficient Range <145 Procedures Date Code Description Status 04/17/2019 62284 Diffusing Capacity Completed 04/17/2019 57704 Plethysmography Determination Lung Volumes & Per Airway Completed Resist 04/17/2019 39372 Spirometry Incl Graphic Record Completed 03/08/2019 54387 Endoscopy Upper GI Biopsy Completed 06/21/2018 23275538 Colonoscopy Completed 07/15/2015 38233595 Colonoscopy Completed 04/14/2007 44752438 Colonoscopy Completed Encounters Type Date Location Provider Dx Diagnosis Office Visit 02/21/2019 8:45a [facility] Gastroenterology Nargis Bach NP R11.0 Nausea K82.8 Other specified diseases of gallbladder Office Visit 02/15/2019 10:00a [facility] Ariela Shoemaker, R53.83 Other fatigue [facility] EXCHANGE TROUBLE SHOOTER J01.00 Acute maxillary sinusitis, unspecified K58.2 Mixed irritable bowel syndrome F41.8 Other specified anxiety disorders R73.03 Prediabetes R14.0 Abdominal distension (gaseous) Office Visit 02/01/2019 [facility] Nargis K82.8 Other specified 8:30a Bach, SUSAN diseases of gallbladder R14.0 Abdominal distension (gaseous) R10.13 Epigastric pain Office Visit 01/18/2019 1:00p [facility] Ariela Shoemaker, R53.83 Other fatigue [facility] EXCHANGE TROUBLE SHOOTER K58.2 Mixed irritable bowel syndrome F41.8 Other specified anxiety disorders Z68.27 Body mass index (BMI) 27.0-27.9, adult Office Visit 01/10/2019 11:30a [facility] Ed, N83.202 Unspecified [facility] ovarian cyst, left side N92.6 Irregular menstruation, unspecified R10.31 Right lower quadrant pain Office Visit 12/16/2018 3:00p [facility] Ed, N93.0 Postcoital and [facility] MD contact bleeding R53.83 Other fatigue Office Visit 12/09/2018 3:00p [facility] Ruma Esqueda, R31.9 Hematuria, [facility] N.P. unspecified N93.9 Abnormal uterine and vaginal bleeding, unspecified Z32.02 Encounter for test, result negative Office Visit 08/17/2018 [facility] Nish Escobar 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 Plan of Treatment Future Appointment(s):05/18/2019 10:45 am - Nish Martinez MD at [facility] Cvyeafaauvtcfthr99/13/2019 - Brian Gamboa M.D.R51 DawjydflU79.8 Other disturbances of skin sensationFollow up:Follow up as atyvafD88.83 Other elnthtlB21.10 Myalgia, unspecified site
--- OUTSIDE RECORDS SUMMARY | 2019-06-03 13:04 | XMS REPORT | Continuity of Care Document ---
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 Primary Care Physician Unavailable Payers Date Identification Numbers Payment Provider Subscriber Policy Number: [id number] [facility] Alexandra Hernandez Group Number: [id number] [facility] [id number] Group Name: [id number] [place] [address] PayID: [id number] Problems Active Problems Provider Date Dizziness and [...] Medications SIG Qnty Indications Ordering Date Provider Fluticasone 2 puffs both sides 47.4ml J31.0 Jorge Bautista 05/08/2019 Propionate once a day 50mcg/Act Suspension Progesterone Take 1 Capsule By Unknown Micronized Mouth On Day 12 100mg Thru 28 Of Your Capsules Menstrual Cycle Escitalopram Oxalate Take One Tablet By Unknown Mouth Every Day 10mg Tablets Zyrtec-D Allergy & as directed Unknown Congestion 5-120mg Tablets ER 12HR History Medications Medrol take as directed 1pack R42 Jorge Bautista 02/27/2019 - 4mg JANEL MATA 03/14/2019 Lortab Elixir 1 tablespoon (15 450ml 474.00 Lg Barajas 01/31/2009 - ml) by mouth every MD Yolanda 02/26/2019 2.5mg/5 ML Elixir 4-6 hours as needed for pain Prednisone 2 tabs daily for 5 10tabs 474.00 Lg Barajas 01/31/2009 - 20mg days MD Yolanda 02/26/2019 Tablets Alesse Unknown - -28 Tablets 02/27/2019 Effexor Heidy Henderson M.D. - 75mg 02/27/2019 Tablets Omeprazole 1 tab by mouth 30 Unknown - 20mg min before 05/08/[address] breakfast and dinner Valium 1 tab by mouth Unknown - 2mg Tablets every 12 hours as 05/08/2019 needed for as needed Ibuprofen 1 by mouth three Unknown - 600mg times a day with 05/08/2019 Tablets food Flexeril 5 mg prn Unknown - 05/08/2019 Doxycycline Take One Capsule Unknown - Monohydrate By Mouth Twice A 05/08/2019 100mg Day For 21 Days Capsules Gabapentin Take 1 Capsule AT Unknown - 300mg Bedtime For 3 05/08/2019 Capsules Nights Then Increase To Take 1 Capsule Two Times A Day Vital Signs Date Vital Result Comment 05/08/2019 10:55am Weight 155.00 lb Weight 70.308 kg Height 63 inches 5'3" Height in cm's 160.0 cm BMI (Body Mass Index) 27.5 kg/m2 03/14/2019 3:05pm Weight 155.00 lb Weight 70.308 [...] Test Result H/L Range Note Surgical 02/12/2009 [facility] Surgical 1 Pathology c/o Department of Laboratories Pathology ---- <[place] [address] NOTE> [phone] --- RUN DATE: 02/14/09 [facility] NMI LIVE PAGE 1 RUN TIME: 2143 Specimen Inquiry RUN USER: INTERFACE -- Name: ALEXANDRA HERNANDEZ Status: [facility] Re02/12/09 Age/Sex: 33/F Unit#: [id number] Location: [facility] : [birth year] -- Specimen: [id number] Spec Date: 02/12/[address]: Lg Guerrero MD Spec Type: SURGICAL P Received: 02/13/09-9615 Copies to: SPECIMEN 1) RIGHT TONSIL 2) LEFT TONSIL HISTORY PRE-OP DIAGNOSIS: Chronic tonsillitis. GROSS DESCRIPTION 1) Specimen is received in formalin labelled Alexandra Hernandez, Right Tonsil and consists of a tonsil measuring 2.4 x 1.8 x 1.2 cm. Cut section demonstrates lobulated, keenan-johnson, focally hemorrhagic, fleshy parenchyma. Station Baggage Agent section, one cassette. 2) Specimen is received in formalin labelled Alexandra Hernandez, Left Tonsil and consists of a tonsil measuring 2.3 x 1.8 x 1.5 cm. Cut section reveals lobulated, keenan, fleshy parenchyma. Station Baggage Agent section, one cassette. DIAGNOSIS 1) Oral pharynx, right tonsil, tonsillectomy: Follicular lymphoid hyperplasia. 2) Oral pharynx, left tonsil, tonsillectomy: Follicular lymphoid hyperplasia. Signed Electronically by: MARKUS NAVARRETE MD 02/14/09 1451 -- -- DEPARTMENT OF PATHOLOGY, [address] [place] [address] [facility] Permit #[id number] Markus Navarrete M.D. Director Brandon Hilliard M.D. Endodontics Dentist Dir fritz -- Procedures Date Code Description Status 05/08/2019 58735 Tympanometry Completed 02/27/2019 16742 Tympanometry Completed 02/27/2019 09414 Comprehensive Audiogram Completed 02/12/2009 51895 Tonsillectomy Age 12 And Over Completed Encounters Type Date Location Provider Dx Diagnosis Office Visit 05/08/2019 [place] oJrge Bautista J31.0 Chronic rhinitis 11:00a 11/29/07 H69.83 Other specified disorders of Eustachian tube, bilateral Office Visit 03/14/2019 2:45p [place] 11/29/07 Ruma Guillen, R42 Dizziness and PA-C giddiness H92.03 Otalgia, bilateral M54.2 Cervicalgia R53.83 Other fatigue Office Visit 02/27/2019 [place] Jorge Bautista R42 Dizziness and 11:30a 11/29/07 MD velazquez Office Visit 01/31/2009 [place] Lg Barajas 474.00 Tonsillitis, 1:45p 11/29/07 MD Yolanda Chronic Office Visit 02/09/2008 [place] Lg Barajas 474.00 Tonsillitis, 10:15a 11/29/07 MD Yolanda Chronic Office Visit 12/15/2007 [place] Lg Barajas 474.00 Tonsillitis, 9:15a 11/29/07 MD Yolanda Chronic Plan of Treatment Future Appointment(s):06/19/2019 10:00 am - Jorge Bautista MD at [place] - Jorge Bautista MDJ31.0 Chronic rhinitisNew Medication: Fluticasone Propionate 50 mcg/Act - 2 puffs both sides once a dayComments:Give her a trial of 6 weeks of topical nasal steroids if no improvement is CT may be helpful. She is going to return back hopefully this will also improve her ear symptoms.H69.83 Other specified disorders of Eustachian tube, bilateral
--- OUTSIDE RECORDS SUMMARY | 2019-06-03 13:04 | XMS REPORT | Continuity of Care Document ---
:1975 External Reference #:[id number] Author Name Radha Jackson Care Team Providers Name Role Phone Héctor Alberto MD Primary Care Physician Unavailable Payers Date Identification Numbers Payment Provider Subscriber Policy Number: [id number] [employer] Alexandra Fischer PayID: [id number] [address] [place] [address] Problems Active Problems Provider Date Gallstone Nargis Bach NP Onset: 02/01/2019 Note: positive on US Irritable bowel syndrome Nish Martinez MD Onset: 05/18/2009 Lyme disease Nish Martinez MD Onset: 05/03/2019 Note: Western blot on second time April 2019 positive; took 3 weeks of doxycycline in February 2019 Family History Date Family Member(s) Observation Comments General Brother has had gout and psoriasis Father Hypertension as of 2017 no complications Father Seizure Disorder Father Depression [...] Date Description Comments Sex Unknown 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 05/05/2019 Micronized Day 12-Day 28 of 100mg your menstrual Capsules cycle Multivitamin Adult 1 by mouth every Unknown day Tablets Vitamin D-3 1 by mouth every Unknown 1000Unit day Capsules Vitamin C 1 by mouth once Unknown W/Vitamin E daily [id number] Capsules Odorless Coated Fish take one Unknown Oil/[place]-3 capsule/tablet 1000mg daily by mouth Capsules DR Lopez Allergy 1 by mouth every Unknown 10mg day Tablets Flonase Allergy 1 puff nasal twice Unknown Relief a day 50mcg/Act Suspension Probiotic 1 by mouth every Unknown Capsules day History Medications Omeprazole 1 by mouth every 30caps Nargis Bach NP 02/01/2019 - 20mg Capsules day 04/26/2019 DR Balderrama Active Medications Unknown 05/13/2018 - 12/09/2018 Lexapro 1 by mouth every Unknown - Unknown 10mg Tablets day Vital Signs Date Vital Result Comment 05/18/2019 10:56am Height 64 inches 5'4" Weight 148.00 lb Heart Rate 68 /min BP Systolic 106 mmHg BP Diastolic 73 mmHg O2 % BldC Oximetry 100 % BMI (Body Mass Index) 25.4 kg/m2 05/11/2019 7:51am Height 64 inches 5'4" Weight [...] Mass Index) 25.3 kg/m2 Last Menstrual Period [id number] 02/21/2019 8:52am Height 64 inches 5'4" Weight [...] Mass Index) 27.6 kg/m2 Last Menstrual Period [id number] 12/09/2018 2:56pm Height 64 inches 5'4" Weight [...] Result H/L Range Note Laboratory test 04/26/2019 [facility] Estradiol 179 pg/mL [address] [place], [place] [address] [phone] Progesterone 8.4 ng/mL 2 Laboratory test 03/08/2019 [facility] Clotest SEE RESULT 3 , [address] BEL[address] [place], [place] [address] [phone] Laboratory test 03/08/2019 [facility] Surgical SEE RESULT 5 , [address] [place] [address] [phone] Liver Function 02/15/2019 [facility] Direct 0.10 mg/dL N 0.03 - Panel DRIVE Bilirubin 0.18 [place], [place] [address] [phone] Indirect Bilirubin 0.2 mg/dL Low 0.3-1.0 CBC No Diff 02/15/2019 [facility] White Blood 9.3 10^3/uL N 3.5-10.8 [place] [address] [phone] Red Blood Count 4.67 10^6/uL N 3.70-4.87 [...] fL N 7.4-10.4 Laboratory test finding 02/15/2019 [facility] Lipase 35 U/L N 11.0-82[address] [place] [address] [phone] Amylase 43 U/L N 29-103 C Reactive Protein 2.71 mg/L N <8.01 Comp Metabolic Panel 02/15/2019 [facility] Sodium 138 mmol/L N 135-[address] [place] [address] [phone] Potassium 4.5 mmol/L N 3.5-5.0 Chloride 105 [...] Egfr 101.5 >60 7 Laboratory test 02/04/2019 [facility] O&P Ova & <pending> finding [address] [place] [address] Screen [phone] O P: 02/04/2019 [facility] O P: SEE RESULT 8 Giardia/Cryptos [address] Giardia/[place] [address] spor Screen [phone] Laboratory test 02/04/2019 [facility] Stool Culture SEE RESULT 9, [address] [place] [address] [phone] Ova & Parasites 02/04/2019 [facility] Parasitic See Comment [address] Exam, Result [place], [place] [address] [phone] CBC Auto Diff 01/19/2019 [facility] White Blood 8.3 10^3/uL N 3.5- [address] Count 10.8 [place] [address] [phone] Red Blood Count 4.87 10^6/uL N 4.00-5.40 [...] Blood Cells % 0 Laboratory test 01/19/2019 [facility] Hemoglobin A1c 5.8 % High 4.0-5.[address] (Glyco HGB) [place] [address] [phone] CRP High Sensitivity 2.08 mg/L High <2.00 TSH (Thyroid Stimulating Horm) 1.82 mcIU/mL N 0.34-5.60 Free T4 1.00 ng/dL N 0.61-1.12 Ferritin 71.0 ng/mL N 11-307 Thyroperoxidase AB 0.97 IU/mL N <9 Insulin Level 7.5 mcIU/mL N 2.0-16.0 Thyroglobulin Antibody II 58.0 IU/mL High <4.0 Thyroxine 6.94 g/dL N 6.09-12.23 Heavy Metal Blool 01/19/2019 [facility] Arsenic <1 ng/mL 0- [address] [place] [address] [phone] Lead <1.0 g/dL 0.0-4.9 14 Mercury <1 ng/mL 0-9 15 Cadmium <0.2 ng/mL 0.0-4.[address] [place] [address] [facility] Guardian First Name ALEXANDRA Ramirez Guardian Last Name WELLESLEY Venous/Capillary Heavy Metals Venous Patient Race WHITE Submitting Laboratory Phone [phone] Laboratory test 01/19/2019 [facility] Copper, 1.17 g/mL 0.75-1.[address] [place] [address] [phone] Zinc Serum 0.87 g/mL 0.66-1.10 19 Laboratory test 12/16/2018 [facility] Cytology SEE RESULT [address] [place] [address] [phone] Basic Metabolic 12/16/2018 [facility] Sodium 138 mmol/L N 135- [address] [place] [address] [phone] Potassium 4.4 mmol/L N 3.5-5.0 Chloride 105 mmol/L N 101-111 Co2 Carbon Dioxide 26 mmol/L N 22-32 Anion Gap 7 mmol/L N 2-11 Glucose 115 mg/dL High 70-100 Blood Urea Nitrogen 16 mg/dL N 6-24 Creatinine 0.86 mg/dL N 0.51-0.95 BUN/Creatinine Ratio 18.6 N 8-20 Calcium 9.7 mg/dL N 8.6-10.3 Egfr Non- 72.7 >60 Egfr 88.0 >60 21 Lyme Western 12/16/2018 [facility] Lyme Disease Negative Negative Blot [address] [facility] [place] [address] [phone] Lyme Disease IgG Bands Present p41,p39 kDa Lyme Disease IgM Ab WB Negative Negative Lyme Disease IgM Bands Present No bands detecte <SEE NOTE> kDa 22 Lyme Disease Interpretation See Comment 23 Laboratory test 12/16/2018 [facility] HCG < 0.60 mIU/ mL [address] [place] [address] [phone] TSH (Thyroid Stim Horm) 1.13 mcIU/mL N 0.34-5.60 Vitamin B12 536 pg/mL N 180-914 25 Free T4 (Free Thyroxine) 0.69 ng/dL N 0.61-1.12 Vitamin D Total 25(Oh) 28.7 ng/mL N 20-50 CBC Auto Diff 12/16/2018 [facility] White Blood 8.9 10^3/uL N 3.5-10.[address] [place] [address] [phone] Red Blood Count 4.77 10^6/uL N 4.00-5.40 [...] Cells % 0.1 Laboratory test finding 12/09/2018 [employer] [facility] Test Urine negative Ua Routine 12/09/2018 [employer] [facility] Ua Specific [place] 1.010 Ua PH 8 Ua Color yellow [...] ng/ml 2nd trimester.........19.4 - 45.3 ng/ml 3 [id number] SEE RESULT BELOW Name: ALEXANDRA FISCHER : [address]: Nish Martinez MD Acct: [id number] Unit: [id number] AGE: 43 Location: [facility] Re03/08/19 SEX: F Status: DEP REF SPEC: [id number] JAH: 03/08/19-[address] [facility] [address]: Nish Martinez MD REQ: [id number] RECD: 03/08/19 STATUS: SHANIQUE LOVELL DR: Ney Javed TILT TRAY DRIVER _ SOURCE: GAS ANTRUM SPDESC: ORDERED: Clotest COMMENTS: [id number] Procedure Result Reported Site Clotest Final 03/09/19- 700 ML Clotest Negative * ML - Main Lab . END OF REPORT DEPARTMENT OF PATHOLOGY, [address] [place] [address] Markus Navarrete M.D. Director [facility] # [id number] SEE RESULT BELOW Name: ALEXANDRA FISCHER : [address]: Nish Martinez MD Acct: [id number] Unit: [id number] AGE: 43 Location: [facility] Re03/08/19 SEX: F Status: DEP REF SPEC: [id number] JAH: 03/08/19-11[address] [facility] DR: Nish Martinez MD REQ: [id number] RECD: 03/08/197259 STATUS: MILA LOVELL DR: Shawnti R Storm TILT TRAY DRIVER _ ORDERED: LEVEL 4/3, IMMUNO-FIRST COMMENTS: [id number] ADDENDUM An H. pylori immunohistochemical stain, with [...] CONTINUED ON NEXT PAGE DEPARTMENT OF PATHOLOGY, [address] [place] [address] Markus Navarrete M.D. Director [facility] # [id number] RUN DATE: 03/10/19 [facility] LAB LIVE PAGE 2 Patient: ALEXANDRA FISCHER [id number] (Continued) CLINICAL HISTORY (Continued) CLINICAL HISTORY Pain [...] 1245 END OF REPORT DEPARTMENT OF PATHOLOGY, [address] [place] [address] Markus Navarrete M.D. Director [facility] # [id number] 7 Because ethnic data is not always [...] [address]: Nargis Bach NP Acct: [id number] Unit: [id number] AGE: 43 Location: [facility] Re02/04/19 SEX: F Status: REG REF SPEC: [id number] JAH: 02/04/[address]: Nargis Bach NP REQ: [id number] RECD: 02/04/19 STATUS: SHANIQUE LOVELL DR: Ney Javed NP _ SOURCE: STOOL [facility]: ORDERED: O P: Giar/Crypt Procedure Result Reported Site O P: Giardia/Cryptospor Screen Final 02/06/19- 1145 ML Organism 1 Neg Cryptosporidium/Giardia * ML - Main Lab . END OF REPORT DEPARTMENT OF PATHOLOGY, [address] [place] [address] Markus Navarrete M.D. Director [facility] # [id number] Unable to Perform Shiga Toxin Testing. Insufficient Growth of Enteric Bacteria. 10 SEE RESULT BELOW Name: ALEXANDRA FISCHER : [address]: Nargis Bach NP Acct: [id number] Unit: [id number] AGE: 43 Location: [facility] Re02/04/19 SEX: F Status: REG REF SPEC: [id number] JAH: 02/04/[address]: Nargis Bach NP REQ: [id number] RECD: 02/04/19 STATUS: COMP _ SOURCE: STOOL [...] are required. Shiga Toxin 1 2 Final 02/06/19- 0955 ML Test not performed * ML - Main Lab . END OF REPORT DEPARTMENT OF PATHOLOGY, [address] [place] [address] Markus Navarrete M.D. Director [facility] # [id number] 11 SOURCE: STOOL PARASITIC EXAMINATION FINAL No parasites seen. Cryptosporidium, Cyclospora, and microsporidia are not readily detected by this method. Single negative specimen does not rule out parasitic infection. Test Performed by: [address] [address] 12 Therapeutic target for the treatment of diabetes mellitus patients is <7% HBA1C, and in selective patients <6.0%. Please refer to [place] [employer] diabetic care guidelines for further information. 13 ADDITIONAL INFORMATION This test was developed and its performance characteristics determined by [facility] in a manner consistent with CLIA requirements. This test has not been cleared or approved by the U.S. Food and Drug Administration. 14 ADDITIONAL INFORMATION Testing performed by Inductively Coupled Plasma-Mass Spectrometry (ICP-MS). This test was developed and its performance characteristics determined by [facility] in a manner consistent with CLIA requirements. This test has not been cleared or approved by the U.S. Food and Drug Administration. 15 ADDITIONAL INFORMATION This test was developed and its performance characteristics determined by [facility] in a manner consistent with CLIA requirements. This test has not been cleared or approved by the U.S. Food and Drug Administration. 16 ADDITIONAL INFORMATION This test was developed and its performance characteristics determined by [facility] in a manner consistent with CLIA requirements. This test has not been cleared or approved by the U.S. Food and Drug Administration. 17 Test Performed by: [facility] - [address] [address] 18 ADDITIONAL INFORMATION This test was developed and its performance characteristics determined by [facility] in a manner consistent with CLIA requirements. This test has not been cleared or approved by the U.S. Food and Drug Administration. Test Performed by: [facility] - [address] [address] 19 ADDITIONAL INFORMATION This test was developed and its performance characteristics determined by [facility] in a manner consistent with CLIA requirements. This test has not been cleared or approved by the U.S. Food and Drug Administration. Test Performed by: [facility] - [address] [address] 20 SEE RESULT BELOW Name: ALEXANDRA FISCHER : [address]: Dianne Rollins MD Acct: [id number] Unit: [id number] AGE: 43 Location: [facility] Re12/16/18 SEX: F Status: REG REF SPEC: [id number] JAH: 12/16/[address]: Dianne Rollins MD REQ: [id number] RECD: 12/16/18 STATUS: SOUT _ ORDERED: TP IMAGE ANALYS, HPV/Thin Prep COMMENTS: [id number] Negative for Intraepithelial lesion or Malignancy Date Time Test Result Flag (u) Normal Range 12/16/18 1528 @ HPV RNA Negative Negative @ @ [...] was evaluated with the assistance of the General BloodPrep Test Imaging System. Due to cytologic findings at the rock lather microscope, comprehensive manual rescreening by a Liability Claims Manager may be required. The Pap Smear is [...] years. END OF REPORT DEPARTMENT OF PATHOLOGY, [address] [place] [address] Markus Navarrete M.D. Director [facility] # [id number] 21 Because ethnic data is not always [...] >=30 days of symptoms. Test Performed by: [facility] [address] [place] [address] 24 <5.0 Negative 5.0 - 25.0 Indeterminate (Repeat testing recommended after 72 hours) >25.0 Positive Perimenopausal women can display HCG levels of up to 20 mIU/mL 25 Normal Range 180 to 914 Indeterminate Range 145 to 180 Deficient Range <145 Procedures Date Code Description Status 04/17/2019 82818 Diffusing Capacity Completed 04/17/2019 12448 Plethysmography Determination Lung Volumes & Per Airway Completed Resist 04/17/2019 08940 Spirometry Incl Graphic Record Completed 03/08/2019 77749 Endoscopy Upper GI Biopsy Completed 06/21/2018 14997824 Colonoscopy Completed 07/15/2015 40929959 Colonoscopy Completed 04/14/2007 16061044 Colonoscopy Completed Encounters Type Date Location Provider Dx Diagnosis Office Visit 05/11/2019 [facility] Brian Gamboa M.D. R51 Headache 8:00a Of [facility] R20.8 Other disturbances of skin sensation R53.83 Other fatigue M79.10 Myalgia, unspecified site Office Visit 04/26/2019 [facility] Ruma Esqueda, R10.30 Lower abdominal 1:00p of [facility] N.P. pain, unspecified Office Visit 02/21/2019 [facility] Gastroenterology Nargis R11.0 Nausea 8:45a SUSAN Bach K82.8 Other specified diseases of gallbladder Office Visit 02/15/2019 10:00a [facility] Ariela Shoemaker R53.83 Other fatigue [facility] TILT TRAY DRIVER J01.00 Acute maxillary sinusitis, unspecified K58.2 Mixed irritable bowel syndrome F41.8 Other specified anxiety disorders R73.03 Prediabetes R14.0 Abdominal distension (gaseous) Office Visit 02/01/2019 [facility] Gastroenterology Nargis K82.8 Other specified 8:30a SUSAN Bach diseases of gallbladder R14.0 Abdominal distension (gaseous) R10.13 Epigastric pain Office Visit 01/18/2019 1:00p [facility] Ariela Shoemaker, R53.83 Other fatigue [facility] TILT TRAY DRIVER K58.2 Mixed irritable bowel syndrome F41.8 Other specified anxiety disorders Z68.27 Body mass index (BMI) 27.0-27.9, adult Office Visit 01/10/2019 11:30a [facility] Dianne Rollins, N83.202 Unspecified [facility] ovarian cyst, left side N92.6 Irregular menstruation, unspecified R10.31 Right lower quadrant pain Office Visit 12/16/2018 3:00p [facility] Dianne Rollins, N93.0 Postcoital and [facility] contact bleeding R53.83 Other fatigue Office Visit 12/09/2018 3:00p [facility] Ruma Esqueda, R31.9 Hematuria, [facility] N.P. unspecified N93.9 Abnormal uterine and vaginal bleeding, unspecified Z32.02 Encounter for test, result negative Office Visit 08/17/2018 [facility] Gastroenterology Nish Escobar 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 Plan of Treatment 05/11/2019 - Brian Gamboa M.D.R51 SmrmmsmxR66.8 Other disturbances of skin sensationFollow up:Follow up as pjawxwQ61.83 Other ckqdvqzJ74.10 Myalgia, unspecified site
--- NOTE | 2019-06-03 13:40 | ED ---
Abdominal Pain/Female - HPI Summary HPI Summary: A 43 y/o female presents to [facility] with a chief complaint of sharp RUQ abdominal pain since last night. Last night she would have rated her pain as an 8/10 in severity but she rates her pain as a 5/10 in severity currently. She still has her gallbladder, but had an ultrasound in January 2019 which showed a gallstone, but it didn't look irritated. She notes that her pain radiates to her shoulder, back and chest. She reports some intermittent nausea and some constipations, she denies diarrhea today. She has a Hx of Celiac disease. - History of Current Complaint Chief Complaint: EDAbdEdwinin Stated Complaint: RT UPPER QUADRANT ABD PAIN PER PT Time Seen by Provider: 06/03/19 13:29 Hx Obtained From: Patient Hx Last Menstrual Period: 10/30/17 Onset/Duration: Sudden Onset, Lasting Hours, Still Present Timing: Hours Severity Initially: Severe Severity Currently: Moderate Pain Intensity: 5 Pain Scale Used: 0-10 Numeric Location: Discrete At: RUQ Radiates: Yes Radiates to: Back, Chest, Other - shoulder Aggravating Factor(s): Food Alleviating Factor(s): Nothing Associated Signs and Symptoms: Positive: Constipation, Nausea. Negative: Fever , Vomiting, Diarrhea Allergies/Adverse Reactions: Allergies Allergy/AdvReac Type Severity Reaction Status Date / Time adhesive Allergy Rash Verified 06/03/19 12:45 latex Allergy Rash Verified 06/03/19 12:45 PMH/Surg Hx/FS Hx/Imm Hx Endocrine/Hematology History: Denies: Hx Diabetes Cardiovascular History: Denies: Hx Hypertension, Hx Pacemaker/ICD GI History: Reports: Hx Crohn's Disease, Hx Irritable Bowel History: Reports: Other Problems/Disorders - ovarian cysts Denies: Hx Renal Disease Sensory History: Denies: Hx Legally Blind, Hx Deafness, Hx Hearing Aid Opthamlomology History: Denies: Hx Legally Blind Psychiatric History: Reports: Hx Anxiety, Hx Depression - hx SSRI use, on none at present Denies: Hx Panic Disorder - Surgical History Surgery Procedure, Year, and Place: t&a-PT IS DIFFICULT STICK NEEDS US GUIDED INJECTION MAIN CAMPUS ONLY Infectious Disease History: No Infectious Disease History: Denies: Traveled Outside the [place] in Last 30 Days - Family History Known Family History: Positive: Hypertension Negative: Diabetes - Social History Alcohol Use: None Hx Substance Use: No Substance Use Type: Reports: None Hx Tobacco Use: No Smoking Status (MU): Never Smoked Tobacco Have You Smoked in the Last Year: No Review of Systems Negative: Fever Positive: Abdominal Pain - radiating to shoulder, chest and back, Nausea, Other - positive: constipation. Negative: Diarrhea All Other Systems Reviewed And Are Negative: Yes Physical Exam - Summary Physical Exam Summary: VITAL SIGNS: Reviewed. GENERAL: Patient is a well-developed and nourished female who is lying comfortable in the stretcher. Patient is not in any acute respiratory distress. HEAD AND FACE: Normocephalic and atraumatic. EYES: PERRLA, EOMI x 2, No injected conjunctiva. EARS: Hearing grossly intact. Ear canals and tympanic membranes are WNL. MOUTH: Oropharynx within normal limits. NECK: Supple, trachea is midline, no adenopathy, no JVD. CHEST: Symmetric, no tenderness at palpation. LUNGS: Clear to auscultation bilaterally. No wheezing or crackles. CVS: RRR, S1 and S2 present, no murmurs or gallops appreciated. ABDOMEN: Soft, RUQ tenderness. No signs of distention. Positive bowel sounds. No rebound, no guarding, and no masses palpated. No abdominal bruit or pulsations. EXTREMITIES: FROM in all major joints, no edema, no cyanosis or clubbing. NEURO: Alert and oriented x 3. No acute neurological deficits. Speech is normal. SKIN: Dry and warm. Triage Information Reviewed: Yes Vital Signs On Initial Exam: Initial Vitals Temp Pulse Resp BP Pulse Ox 98.2 F 82 16 137/91 98 06/03/19 12:42 06/03/19 12:42 06/03/19 12:42 06/03/19 12:42 06/03/19 12:42 Vital Signs Reviewed: Yes Diagnostics - Vital Signs Vital Signs Temp Pulse Resp BP Pulse Ox 06/03/19 12:42 98.2 F 82 16 137/91 98 - Laboratory Result Diagrams: 06/03/19 13:49 06/03/19 15:06 Lab Statement: Any lab studies that have been ordered have been reviewed, and results considered in the medical decision making process. - Ultrasound No standard instances Ultrasound Interpretation Completed By: Radiologist Summary of Ultrasound Findings: Gallbladder Ultrasound impression: CHOLELITHIASIS WITHOUT SONOGRAPHIC FEATURES OF ACUTE INFLAMMATORY CHANGE OR PATHOLOGIC. BILIARY OBSTRUCTION. ED physician has reviewed this imaging report. Abdominal Pain Fem Course/Dx - Course Course Of Treatment: A 43 y/o female presents to [facility] with a chief complaint of sharp RUQ abdominal pain since last night. Last night she would have rated her pain as an 8/10 in severity but she rates her pain as a 5/10 in severity currently. She still has her gallbladder, but had an ultrasound in January 2019 which showed a gallstone, but it didn't look irritated. She notes that her pain radiates to her shoulder, back and chest. She reports some intermittent nausea and some constipations, she denies diarrhea today. She has a Hx of Celiac disease. Blood work without any significant abnormality. Right upper quadrant ultrasound impression: Cholelithiasis without sonographic features of acute inflammation or pathologic biliary obstruction. In the ED course the patient declined any IV fluids, declined pain medications. The blood work shows no signs of infection, no increased levels account for CRP and the right upper quadrant ultrasound shows no acute cholecystitis. I discussed all the findings and test results with the patient. Patient was instructed to return to the emergency room immediately if any of the symptoms return worsens. Plan of care was discussed with the patient and understands and agrees. All questions were answered at patient satisfaction. There were no further complaints or concerns. Lung exam before discharge: CTA B/L. Good air exchange. No wheezing or crackles heard. CVS: S1 and S2 present. No murmurs appreciated. Patient is alert and oriented x 3. Patient is hemodynamically stable. Patient will be discharged home with follow up PCP in the next 2-3 days. - Diagnoses Provider Diagnoses: Cholelithiasis Discharge - Sign-Out/Discharge Documenting (check all that apply): Patient Departure - [facility] Patient Received Moderate/Deep Sedation with Procedure: No - Discharge Plan Condition: Stable Disposition: HOME Patient Education Materials: Gallstones (ED) Referrals: Héctor Alberto MD [Primary Care Provider] - (2-3 days) Star De Santiago MD [Medical Doctor] - Additional Instructions: FOLLOW UP WITH YOUR PRIMARY CARE PROVIDER. RETURN TO THE ED FOR ANY WORSENING OR NEW SYMPTOMS. - Billing Disposition and Condition Condition: STABLE Disposition: Home - Attestation Statements Document Initiated by Scribe: Yes Documenting Scribe: Sean Ramos Provider For Whom Scribe is Documenting (Include Credential): William Perera MD Scribe Attestation: I, Sean Ramos, scribed for William Perera MD on 06/04/19 at 1210. Scribe Documentation Reviewed: Yes Provider Attestation: The documentation as recorded by the scribe, Sean Ramos accurately reflects the service I personally performed and the decisions made by me, William Perera MD Status of Scribe Document: Viewed
[2019-06-03 13:54] LABS: ABS Basophils 0.1 10^3/ul (0-0.2); ABS Eosinophils 0.2 10^3/ul (0-0.6); ABS Lymphocytes 2.5 10^3/ul (1.0-4.8); ABS Monocytes 0.6 10^3/ul (0-0.8); ABS Neutrophils 4.2 10^3/ul (1.5-7.7); Eosinophil % 3.3 %; Hematocrit 43 % (35-47); Hemoglobin 14.7 g/dL (12.0-16.0); Lymphocyte % 33.1 %; Mean Corpuscular HGB Conc 34 g/dL (31-36); Mean Corpuscular Hemoglobin 31 pg (27-31); Mean Corpuscular Volume 90 fL (80-97); Mean Platelet Volume 8.6 fL (7.4-10.4); Nucleated Red Blood Cells % 0.1; Platelet Count 414 10^3/uL (150-450); Red Blood Count 4.77 10^6 /uL (3.70-4.87); Red Cell Distribution Width 13 % (10-15); White Blood Count 7.6 10^3/uL (3.5-10.8)
[2019-06-03 14:14] LABS: ALT 27 U/L (7-52); Albumin 4.9 g/dL (3.2-5.2); Albumin/Globulin Ratio 1.6 (1-3); Alkaline Phosphatase 46 U/L (34-104); BUN/Creatinine Ratio 18.2 (8-20); Blood Urea Nitrogen 14 mg/dL (6-24); C Reactive Protein < 1.00 mg/L (<8.01); CO2 Carbon Dioxide 25 mmol/L (22-32); Calcium 9.4 mg/dL (8.6-10.3); Chloride 104 mmol/L (101-111); Creatine Kinase 83 U/L (10-223); EGFR Non-African American 82.6 (>60); Globulin 3.1 g/dL (2-4); Glucose 100 mg/dL (70-100); Sodium 135 mmol/L (135-145)
[2019-06-03 14:21] LABS: HCG Pregnancy < 0.60 mIU/mL
[2019-06-03 14:47] LABS: Anion Gap 6 mmol/L (2-11)
[2019-06-03 15:28] LABS: Potassium Redraw 3.9 mmol/L (3.5-5.0)
[2019-06-03 16:28] LABS: Urine Appearance Clear; Urine Bilirubin Negative (Negative); Urine Blood Negative (Negative); Urine Color Yellow; Urine Glucose Negative (Negative); Urine Ketones 1+ (Negative); Urine Nitrite Negative (Negative); Urine Protein Negative (Negative); Urine Specific Gravity 1.013 (1.010-1.030); Urine Urobilinogen Negative (Negative)
[2019-06-03 16:50] VITALS: BP 115/78
== END | disposition home or self-care (01) ==
LOC: ED 12:24
DX: K80.20 Calculus of gallbladder without cholecystitis without obstruction (principal); Z91.040 Latex allergy status; Z91.048 Other nonmedicinal substance allergy status
CPT/HCPCS: 36415; 76705; 80053; 81003; 82550; 83605; 83690; 84702; 85025; 86140; 99283

== ENCOUNTER → 2019-06-13 12:14 | Day surgery (SDC) | payer OTHER ==
[~2019-06-13 12:14] MED LIST: Buffered Lidocaine 1% SYRIN* 1 ML/SYRINGE INTRADERM ONE; Bupivacaine 0.25% EPI 200,000* 30 ML SDV ONE; Dexamethasone IV* 4 MG/ML 1 ML (4 MG) ONE; DiMENhydriNATE IV* 50 MG/ML VIAL IV PUSH PRN; Famotidine IV* 10 MG/ML 2 ML (20 mg) IV ONE; Famotidine IV* 10 MG/ML 2 ML (20 mg) ONE; Glycopyrrolate IV* 0.2 MG/ML 1 ML VIAL ONE; Ketorolac INJ* 30 MG/ML 1 ML VIAL IV PRN; Ketorolac INJ* 30 MG/ML 1 ML VIAL ONE; Lactated Ringers 1000 ML Bag* 1,000 ML IV SCH; Lidocaine 2% PF * 5 ML VIAL ONE; Naloxone* 0.4 MG/ML 1 ML VIAL IV PRN; Neostigmine Methylsulfate* 3 MG/3 ML SYRINGE ONE; Ondansetron INJ* 2 MG/ML VIAL ONE; Propofol* 10 MG/ML 20 ML BTL ONE; Rocuronium* 10 MG/ML VIAL ONE; ceFAZolin 2 GM in NS PREMIX(*) 0 GM/0 ML BAG IVPB ONE; ceFAZolin 2 GM in NS PREMIX(*) 2 GM/100 ML BAG IVPB ONE; fentaNYL* 50 MCG/ML 2 ML VIAL (100 MCG VIAL) ONE; oxyCODONE/Acetamin 5/325 MG* TAB ONE; oxyCODONE/Acetamin 5/325 MG* TAB PO PRN
[2019-06-13] MEDS: fentaNYL* 50 MCG/ML 2 ML VIAL (100 MCG VIAL) IV PRN ×2 (18:57→19:40)
[2019-06-13 21:07] VITALS: BP 115/73
--- NOTE | 2019-06-14 08:51 | OP ---
CC: Héctor Alberto MD * DATE OF OPERATION: 06/13/19 - SDS DATE OF : 79 SURGEON: Star De Santiago MD [employer] SUPERVISOR: Radha Cotton NP ANESTHESIOLOGIST: Abel Nieto DO ANESTHESIA: General endotracheal. PRE-OP DIAGNOSIS: Symptomatic gallstone. POST-OP DIAGNOSIS: Symptomatic gallstone. OPERATIVE PROCEDURE: Laparoscopic cholecystectomy. ESTIMATED BLOOD LOSS: Minimal. IV FLUIDS: Crystalloids. SPECIMEN: Gallbladder. DRAINS: None. COMPLICATIONS: None. COUNTS: Instrument, needle, and sponge counts were correct. DESCRIPTION OF PROCEDURE: The patient was brought to the operative room and placed on the table supine. Sequential compression devices were placed on both lower extremities. General anesthesia was administered. The abdomen was prepped and draped in the usual sterile fashion. Time-out was performed. She received appropriate intravenous antibiotics. Local anesthetic was infiltrated into the skin and soft tissue prior to making each incision. Entry into the abdomen was through a transumbilical vertical incision using an open technique. Small umbilical hernia was identified. A 12- mm trocar was placed and carbon dioxide was insufflated to a pressure of 15 mmHg. Under direct visualization, 5 mm trocars were placed, 1 in the subxiphoid position and 2 in the right upper quadrant. The gallbladder was identified. It appeared to have changed consistent with chronic cholecystitis. The gallbladder fundus was grasped and retracted cephalad. The infundibulum was identified. It was retracted laterally and the peritoneum invested and infundibulum was dissected using cautery with sharp and blunt dissection. The cystic duct and cystic artery were each dissected out and critical view was obtained. Each structure was doubly clipped and divided. The gallbladder was freed from attachments to the gallbladder fossa using the combination of cautery dissection and sharp dissection in order to completely free the gallbladder. It was then placed into retrieval bag and retrieved through the umbilical site. Hemostasis was assured. Clips were intact. Ports were removed under direct visualization and carbon dioxide was released. Umbilicus was closed with 0 Vicryl in [id number] fashion to approximate the fascia. Skin incision were closed with 4-0 Monocryl in subcuticular fashion. Steri- Strips were applied. The patient tolerated the procedure well and was extubated and transferred to Recovery in stable. [id number]/[facility] #: [id number] [facility]
== END | disposition home or self-care (01) ==
LOC: OR 12:14
PROVIDERS: ATTEND Surgery
DX: K80.10 Calculus of gallbladder with chronic cholecystitis without obstruction (principal); K58.9 Irritable bowel syndrome, unspecified; Z87.891 Personal history of nicotine dependence
CPT/HCPCS: 81025; 88304; A9270-GY; J0690; J1100; J1885; J2405; J2704; J2710; J3010

== ENCOUNTER 2019-06-14 20:23 | Observation (INO) | payer OTHER ==
[2019-06-14] MEDS ORDERED: Metoclopramide IV* 5 MG/ML 2 ML VIAL IV SLOW PU ONE (20:55)
[2019-06-14] MEDS ORDERED: HYDROmorphone INJ1* 1 MG/ML SYRINGE IV SLOW PU ONE (20:55)
[2019-06-14] MEDS ORDERED: NS 0.9% 1000 ML** 1,000 ML IV ONE (20:55)
--- NOTE | 2019-06-14 20:59 | ED ---
Abdominal Pain/Female - HPI Summary HPI Summary: Patient is a 43 year old F w/ recent cholecystectomy (06/13/19, discharged 2129) presents to [facility] with a chief complaint of right-sided abdominal pain. Pain is reported to be most severe at RUQ, with some lesser pain at RLQ. Sx suddenly onset of 1 hr ago. Pain is rated at 10/10 in severity, per triage. Patient describes pain as spazzing and notes that she feels as gaseous. Last bowel movement was yesterday, patient states that she can pass gas. She endorses diaphoresis as well. Patient reports it hurts to breathe and that she cant expand her lungs. reports she was fine earlier today. Symptoms aggravated by nothing. Symptoms alleviated by nothing. Patient's in room as well. - History of Current Complaint Chief Complaint: EDAbdPain Stated Complaint: ABD PAIN PER EMS Time Seen by Provider: 06/14/19 20:37 Hx Obtained From: Patient, Family/Dental Office Assistant - Hx Last Menstrual Period: 10/30/17 Onset/Duration: Sudden Onset, Lasting Hours, Still Present Timing: Hours Severity Currently: Severe Pain Intensity: 10 Pain Scale Used: 0-10 Numeric Location: Discrete At: RUQ, Discrete At: RLQ Radiates: No Aggravating Factor(s): Nothing Alleviating Factor(s): Nothing Associated Signs and Symptoms: Positive: Diaphoresis Allergies/Adverse Reactions: Allergies Allergy/AdvReac Type Severity Reaction Status Date / Time adhesive Allergy Severe Rash Verified 06/14/19 21:09 gluten Allergy Severe has celiac Verified 06/14/19 21:09 disease latex Allergy Severe Rash Verified 06/14/19 21:09 PMH/Surg Hx/FS Hx/Imm Hx Endocrine/Hematology History: Denies: Hx Diabetes Cardiovascular History: Denies: Hx Hypertension, Hx Pacemaker/ICD GI History: Reports: Hx Crohn's Disease, Hx Irritable Bowel - r/t celiac, Other GI Disorders - celiac disease History: Reports: Other Problems/Disorders - ovarian cysts Denies: Hx Renal Disease Sensory History: Reports: Hx Contacts or Glasses - both- use glasses day of surgery Denies: Hx Legally Blind, Hx Deafness, Hx Hearing Aid Opthamlomology History: Reports: Hx Contacts or Glasses - both- use glasses day of surgery Denies: Hx Legally Blind Neurological History: Reports: Hx Nerve Disease - lyme disease- neuroligical Psychiatric History: Reports: Hx Anxiety, Hx Depression Denies: Hx Panic Disorder - Cancer History Hx Chemotherapy: No - Surgical History Surgery Procedure, Year, and Place: tonsillectomy 2006 approx-PT IS DIFFICULT STICK NEEDS US GUIDED INJECTION MAIN CAMPUS ONLY Hx Anesthesia Reactions: Yes - does get real cold after surgery and during Infectious Disease History: No Infectious Disease History: Denies: Traveled Outside the [place] in Last 30 Days - Family History Known Family History: Positive: Hypertension Negative: Diabetes - Social History Alcohol Use: None Hx Substance Use: No Substance Use Type: Reports: None Hx Tobacco Use: Yes Smoking Status (MU): Former Smoker Have You Smoked in the Last Year: No Review of Systems Positive: Skin Diaphoresis Positive: Other - "hurts to breathe" Gastrointestinal: Other - positive - gasseous Positive: Abdominal Pain - RUQ & RLQ All Other Systems Reviewed And Are Negative: Yes Physical Exam - Summary Physical Exam Summary: VITAL SIGNS: Reviewed. GENERAL: Patient is a well-developed and nourished FEMALE who is lying in the stretcher. Patient is not in any acute respiratory distress. HEAD AND FACE: No signs of trauma. No ecchymosis, hematomas or skull depressions. No sinus tenderness. EYES: PERRLA, EOMI x 2, No injected conjunctiva, no nystagmus. EARS: Hearing grossly intact. Ear canals and tympanic membranes are within normal limits. MOUTH: Oropharynx within normal limits. NECK: Supple, trachea is midline, no adenopathy, no JVD, no carotid bruit, no c- spine tenderness, neck with full ROM CHEST: Symmetric, no tenderness at palpation LUNGS: Clear to auscultation bilaterally. No wheezing or crackles. CVS: Regular rate and rhythm, S1 and S2 present, no murmurs or gallops appreciated. ABDOMEN: RUQ and RLQ tenderness with more RUQ than RLQ, Steri-strips on Laparoscopic ports, Hyperactive bowel sounds, abdominal distension noted as well. EXTREMITIES: FROM in all major joints, no edema, no cyanosis or clubbing. NEURO: Alert and oriented x 3. No acute neurological deficits. Speech is normal and follows commands. SKIN: Dry and warm Triage Information Reviewed: Yes Vital Signs On Initial Exam: Initial Vitals Temp Pulse Resp BP Pulse Ox 98.6 F 72 22 98/56 99 06/14/19 20:35 06/14/19 20:35 06/14/19 20:35 06/14/19 20:35 06/14/19 20:35 Vital Signs Reviewed: Yes Diagnostics - Vital Signs Vital Signs Temp Pulse Resp BP Pulse Ox 06/14/19 20:35 98.6 F 72 22 98/56 99 - Laboratory Result Diagrams: 06/14/19 21:16 06/14/19 21:16 Lab Statement: Any lab studies that have been ordered have been reviewed, and results considered in the medical decision making process. - CT Abdomen/Pelvis CT CT Interpretation Completed By: Radiologist Summary of CT Findings: Per radiologist,. 1. There are new postoperative changes of cholecystectomy since the prior exam. 2. There is a small to moderate quantity of hyperdense free fluid in the. peritoneum of the abdomen and pelvis which is not consistent with ascites or. biliary leak because of the increased attenuation, and therefore suspicious for. hemoperitoneum possibly related to recent surgery. No IV contrast. extravasation/active arterial bleeding however. 3. There are a few air locules in the anterior aspect of the abdominal. peritoneum, likely related to recent surgery. ED physician has reviewed this imaging report. Re-Evaluation - Re-Evaluation First Eval Re-Evaluation Time: 00:28 Comment: Physician discusses admit with patient. Patient agrees to plan. Abdominal Pain Fem Course/Dx - Course Course Of Treatment: Patient is a 43 year old F w/ recent cholecystectomy (, discharged 2129) presents to [facility] with a chief complaint of right-sided abdominal pain. Pain is reported to be most severe at RUQ, with some lesser pain at RLQ. Sx suddenly onset of 1 hr ago. Pain is rated at 10/10 in severity, per triage. Patient describes pain as spazzing and notes that she feels as gaseous. Last bowel movement was yesterday, patient states that she can pass gas. Physical exam reveals no abnormalities except. RUQ and RLQ tenderness with more RUQ than RLQ, Steri strips on Laparoscopic ports, Hyperactive bowel sounds, and abdomen distension. Patient was given hydromorphone Hcl 1 mg IV, metoclopramide Hcl 10 mg IV, and saline. Bloodwork shows no abnormalities except for WBC 17.9 H, Hgb 11.3 L, Hct 34 L, Absolute Neuts 14.0 H, Absolute Monos 1.0 H, APTT 25.2, Glucose 134 H, Lactic Acid 2.4 H, Calcium 8.4 L, Magnesium 1.8 L, AST 59 H, ALT 110 H, and Total Protein 5.6 L. Abdomen/Pelvis CT reveals 1. There are new postoperative changes of cholecystectomy since the prior exam. 2. There is a small to moderate quantity of hyperdense free fluid in the. peritoneum of the abdomen and pelvis which is not consistent with ascites or. biliary leak because of the increased attenuation, and therefore suspicious for. hemoperitoneum possibly related to recent surgery. No IV contrast. extravasation/active arterial bleeding however. 3. There are a few air locules in the anterior aspect of the abdominal. peritoneum, likely related to recent surgery. We discussed patient care with Dr. Atwood, surgery, at 0025, Dr. Atwood accepts the patient for admission to his services.The patient is agreeable with this plan. - Diagnoses Provider Diagnoses: Post-operative hemorrhage - Provider Notifications Discussed Care Of Patient With: Azam Atwood Time Discussed With Above Provider: 00:25 Instructed by Provider To: Admit As Inpatient - Dr. Atwood admits the patient to his services Discharge - Sign-Out/Discharge Documenting (check all that apply): Patient Departure - admit Patient Received Moderate/Deep Sedation with Procedure: No - Discharge Plan Condition: Fair Disposition: ADMITTED TO [facility] Referrals: Héctor Alberto MD [Primary Care Provider] - - Attestation Statements Document Initiated by Roseibe: Yes Documenting Scribe: Nikole Palmer Provider For Whom Priyanka is Documenting (Include Credential): Rodolfo Jackson MD Scribe Attestation: Yusuf Aleman Alison Kim, scribed for Rodolfo Jackson MD on 06/15/19 at 0042. Status of Scribe Document: Ready
[2019-06-14 21:36] LABS: ABS Basophils 0.1 10^3/ul (0-0.2); ABS Eosinophils 0.1 10^3/ul (0-0.6); ABS Lymphocytes 2.8 10^3/ul (1.0-4.8); Eosinophil % 0.6 %; Hematocrit 34 % (35-47); Hemoglobin 11.3 g/dL (12.0-16.0); Lymphocyte % 15.4 %; Mean Corpuscular HGB Conc 34 g/dL (31-36); Mean Corpuscular Hemoglobin 31 pg (27-31); Mean Corpuscular Volume 90 fL (80-97); Mean Platelet Volume 7.9 fL (7.4-10.4); Platelet Count 292 10^3/uL (150-450); Red Cell Distribution Width 13 % (10-15); White Blood Count 17.9 10^3/uL (3.5-10.8)
[2019-06-14 21:52] LABS: Albumin 3.5 g/dL (3.2-5.2); Albumin/Globulin Ratio 1.7 (1-3); BUN/Creatinine Ratio 18.2 (8-20); C Reactive Protein 2.45 mg/L (<8.01); Calcium 8.4 mg/dL (8.6-10.3); EGFR African American 85.7 (>60); EGFR Non-African American 70.8 (>60); Globulin 2.1 g/dL (2-4); Magnesium 1.8 mg/dL (1.9-2.7); Potassium 3.5 mmol/L (3.5-5.0); Total Bilirubin 0.4 mg/dL (0.2-1.0); Total Protein 5.6 g/dL (6.4-8.9)
[2019-06-14] MEDS ORDERED: Iohexol 300* (CONTRAST) 10 ML SDV IV ONE (22:22)
[2019-06-15] MEDS ORDERED: NS 0.9% 1000 ML** 1,000 ML IV ONE (00:27)
[2019-06-15] MEDS ORDERED: fentaNYL* 50 MCG/ML 2 ML VIAL (100 MCG VIAL) IV SLOW PU ONE (00:32)
[2019-06-15] MEDS ORDERED: Ondansetron INJ* 2 MG/ML VIAL IV PRN (00:44)
[2019-06-15 01:34] LABS: INR 1.09 (0.82-1.09)
[2019-06-15] MEDS: oxyCODONE/Acetamin 5/325 MG* TAB PO PRN (01:57)
[2019-06-15] MEDS: NS 0.9% 1000 ML** 1,000 ML IV SCH ×3 (01:58→15:59)
[2019-06-15] MEDS ORDERED: HYDROmorphone INJ1* 1 MG/ML SYRINGE ONE ×3 (04:49→14:49)
[2019-06-15] MEDS: HYDROmorphone INJ1* 1 MG/ML SYRINGE IV PRN ×2 (04:50→19:44)
--- NOTE | 2019-06-15 07:13 | HP ---
CC: Primary care doctor; [facility] HISTORY AND PHYSICAL: DATE OF ADMISSION: 06/15/19 HISTORY OF PRESENT ILLNESS: Ms. Hernandez is a 43-year-old female, postop day 1 and 2 from laparoscopic cholecystectomy for symptomatic cholelithiasis, who was discharged home after surgery who presents w ith worsening diffuse abdominal pain. The patient states the pain is mostly at the right upper quadrant and right lower quadrant. It is non radiating, but at times she does have shoulder pain similar to gas pain that she had in the postopera tive area. She is also short of breath, having a difficult time catching her breath at times. Pain is alleviated with rest and lying still, worse with movement. PAST MEDICAL HISTORY: Possible Crohn disease, although this is not confirmed.; irritable bowel syndr ome; anxiety; Lyme disease, currently being treated; and celiac sprue. PAST SURGICAL HISTORY: Tonsillectomy and laparoscopic cholecystectomy. MEDICATIONS: List reviewed and includes; 1. Doxycycline. 2. Flonase. 3. Multivitamins. 4. Progesterone. ALLERGIES: She has an allergy to GLUTEN and LATEX. FAMILY HISTORY: History of irritable bowel syndrome, but not of Crohn or ulcerative colitis. SOCIAL HISTORY: She is with children. 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 She does not exercise regularly. Denies alcohol use. REVIEW OF SYSTEMS: On review of systems, shortness of breath as described, but this is new for her. No cardiovascular disease. No cerebrovascular disease. Irritable bowel symptoms and potential Crohn 's disease. The patient is due for another endoscopy with Dr. Hernandez. The patient has had 2 co lonoscopies in the past as well as an EGD. She denies any dysuria. She is passing flatus. No bleed ing or clotting disorders. PHYSICAL EXAMINATION GENERAL: She is alert and oriented x3. She is in no significant distress. VITAL SIGNS: She has been afebrile. Heart rate has been in the 80s. Normotensive. Respiration rate has been variable between teens and high 20s. Currently, she is on 2 L nasal cannula. HEAD, EYES, EARS, NOSE AND THROAT: Sclerae anicteric. Mucous membranes are dry. NECK: No lymphadenopathy. LUNGS: Clear but shallow. No wheezing or rales. ABDOMEN: Soft, mild distention, tender at the right upper quadrant and right lower quadrant without rebound. She also has a positive voluntary guarding, but no involuntary guarding. Steri-Strips in p lace without erythema. No CVA tenderness. RECTAL: Not performed. EXTREMITIES: No pitting edema. DIAGNOSTIC STUDIES/LAB DATA: Labs reviewed show a white count of 18, H and H of which is down from preop , coag level is normal. Metabolic panel normal with the exception of mildly elevate d glucose. She came with lactate of 2.4, which is normalized to 1.3. Decreased magnesium. Elevated transaminases. Now lipase level normal. The patient underwent a CT scan of the abdomen and pelvis. These images as well as report reviewed. Shows some free fluid in the abdomen. Radiology thought it was high density possibly consistent wit h blood. Clips in the appropriate manner in the gallbladder fossa. This was done with IV contrast a nd there was no evidence of a blush consistent with ongoing bleeding. IMPRESSION: Status post laparoscopic cholecystectomy with abdominal pain of unclear etiology. The p atient does have free fluid in abdomen. Differential diagnosis includes bile leak. I would like to get a HIDA scan for the patient. Treat her pain, keep her on NPO status. We will check her H and H a s well. The patient may require a visit to the operating room for diagnostic laparoscopy. My chief concern now is the patient's shortness of breath. She is on IV fluid at this time. No antibiotic is necessary. I have held her doxycycline for now and will await HIDA scan. [id number]/[facility] #: [id number]
[2019-06-15 13:05] LABS: ABS Basophils 0.1 10^3/ul (0-0.2); ABS Eosinophils 0.1 10^3/ul (0-0.6); ABS Lymphocytes 2.1 10^3/ul (1.0-4.8); ABS Monocytes 0.6 10^3/ul (0-0.8); Eosinophil % 0.8 %; Hematocrit 31 % (35-47); Hemoglobin 10.5 g/dL (12.0-16.0); Lymphocyte % 24.4 %; Mean Corpuscular HGB Conc 34 g/dL (31-36); Mean Corpuscular Hemoglobin 31 pg (27-31); Mean Corpuscular Volume 92 fL (80-97); Mean Platelet Volume 8.3 fL (7.4-10.4); Nucleated Red Blood Cells % 0.1; Platelet Count 270 10^3/uL (150-450); Red Blood Count 3.41 10^6 /uL (3.70-4.87); Red Cell Distribution Width 13 % (10-15); White Blood Count 8.8 10^3/uL (3.5-10.8)
[2019-06-15] MEDS ORDERED: Midazolam* 1 MG/ML 5 ML VIAL (5 MG) ONE (13:08)
[2019-06-15] MEDS ORDERED: fentaNYL* 50 MCG/ML 2 ML VIAL (100 MCG VIAL) ONE (13:19)
[2019-06-15] MEDS ORDERED: Rocuronium* 10 MG/ML VIAL ONE (13:29)
[2019-06-15] MEDS ORDERED: Acetaminophen IV 1GM/100ML * 100 ML ONE (13:42)
[2019-06-15] MEDS ORDERED: Ondansetron INJ* 2 MG/ML VIAL ONE (13:42)
[2019-06-15] MEDS ORDERED: EPHEDrine (Pressors)* 50 MG/ML VIAL ONE (13:42)
[2019-06-15] MEDS ORDERED: Ketorolac INJ* 30 MG/ML 1 ML VIAL ONE (13:42)
[2019-06-15] MEDS ORDERED: Succinylcholine* 20 MG/ML 10 ML VIAL ONE (13:42)
[2019-06-15] MEDS ORDERED: Propofol* 10 MG/ML 20 ML BTL ONE (13:42)
[2019-06-15] MEDS ORDERED: DiMENhydriNATE IV* 50 MG/ML VIAL ONE (13:42)
[2019-06-15] MEDS ORDERED: Dexamethasone IV* 4 MG/ML 1 ML (4 MG) ONE (13:42)
[2019-06-15] MEDS ORDERED: DiMENhydriNATE IV* 50 MG/ML VIAL IV PUSH PRN (14:26)
[2019-06-15] MEDS ORDERED: HYDROmorphone INJ1* 1 MG/ML SYRINGE IV PRN (14:26)
[2019-06-15] MEDS ORDERED: oxyCODONE TAB* 5 MG TAB PO PRN (14:26)
[2019-06-15] MEDS ORDERED: Naloxone* 0.4 MG/ML 1 ML VIAL IV PRN (14:26)
--- NOTE | 2019-06-15 14:41 | OP ---
Operative Report - Blank - Operative Report Date of Operation: 06/15/19 Note: Brief Operative Note Preop Dx: s/p laparoscopic cholecystectomy with postoperative intraperitoneal bleed Postop Dx: same Procedure: Laparoscopy; evacuation of blood and hematoma (estimated at 500 ml) Anesthesia: TANIA Surgeon: Angelic Tumblers Supervisor: JANETH Kaumfan Fluids: 900 ml RL EBL: see above Specimen: none Drains: 1 ADDIS drain Findings: dictated
[2019-06-15] MEDS ORDERED: Ibuprofen TAB* 600 MG PO PRN (14:44)
[2019-06-15] MEDS ORDERED: Acetaminophen TAB* 325 MG PO PRN (14:44)
[2019-06-15] MEDS ORDERED: oxyCODONE TAB* 5 MG TAB ONE (15:09)
[2019-06-15] MEDS: DOXYcycline CAP(*) 100 MG PO SCH (19:47)
[2019-06-16] MEDS: oxyCODONE/Acetamin 5/325 MG* TAB PO PRN ×2 (06:34→11:09)
[2019-06-16] MEDS: DOXYcycline CAP(*) 100 MG PO SCH (08:29)
--- NOTE | 2019-06-16 11:14 | PN ---
Progress Note - Progress Note Date of Service: 06/16/19 Note: S: POD #3 and 1. Feels better. Less pain. Bryan diet, though some fullness and minor discomfort. No N/V. No SOB. O: Vital Signs - 8 hr 06/16/19 06/16/19 06/16/19 03:24 06:34 07:40 Temperature 98.7 F 99.6 F Pulse Rate 71 74 Respiratory 16 16 16 Rate Blood Pressure 105/63 106/68 (mmHg) O2 Sat by Pulse 95 97 Oximetry 06/16/19 09:26 Temperature Pulse Rate Respiratory 16 Rate Blood Pressure (mmHg) O2 Sat by Pulse Oximetry Intake and Output Last 24 Hours 06/14/19 06/15/19 06/16/19 06/17/19 06:59 06:59 06:59 06:59 Intake Total 1000 3058 110 Output Total 350 4345 Balance 650 -1287 110 Weight 145 lb Intake: IV Fluids 1000 2498 LR 800 NS (0.9%) 1698 Oral 0 560 110 Output: ADDIS #1 45 Urine 350 4300 Gen: appears comfortable; NAD Heart: reg Lungs: clear Abd: lap sites ok; small amt of bloody drainage around drain site; ADDIS: light serosang--> d/c'd; DSD placed. A: s/p laparoscopy, evacuation of blood and hematoma (s/p lap cholecystectomy ) P: ok for d/c pending CBC. Instructions reviewed. She has an appt for next Wednesday in the office.
[2019-06-16 11:18] VITALS: BP 106/66
[2019-06-16 12:21] LABS: ABS Basophils 0.1 10^3/ul (0-0.2); ABS Eosinophils 0.1 10^3/ul (0-0.6); ABS Lymphocytes 3.2 10^3/ul (1.0-4.8); ABS Monocytes 0.8 10^3/ul (0-0.8); ABS Neutrophils 6.1 10^3/ul (1.5-7.7); Hematocrit 33 % (35-47); Lymphocyte % 31.3 %; Mean Corpuscular HGB Conc 34 g/dL (31-36); Mean Corpuscular Hemoglobin 31 pg (27-31); Mean Corpuscular Volume 91 fL (80-97); Mean Platelet Volume 7.8 fL (7.4-10.4); Platelet Count 298 10^3/uL (150-450); Red Blood Count 3.56 10^6 /uL (3.70-4.87); Red Cell Distribution Width 14 % (10-15); White Blood Count 10.2 10^3/uL (3.5-10.8)
--- NOTE | 2019-06-16 12:51 | OP ---
CC: Primary care provider, Dr. Alberto * DATE OF OPERATION: 06/15/19 - ROOM #337 DATE OF : 79 SURGEON: Azam Atwood MD. PROPOSAL EDITOR: JANETH Nicole. ANESTHESIOLOGIST: Dr. Whyte. ANESTHESIA: General. PRE-OP DIAGNOSIS: Abdominal pain 2 days status post laparoscopic cholecystectomy. POST-OP DIAGNOSIS: Hemoperitoneum. OPERATIVE PROCEDURE: Diagnostic laparoscopy, evacuation of hematoma. FLUIDS: 900 cc of lactated Ringer's given. BLOOD LOSS: Approximately 500 cc of blood clot. SPECIMEN: None. DRAINS: #10 ADDIS drain. INDICATIONS: Ms. Hernandez is a 43-year-old female admitted overnight, postoperative day 2 from laparoscopic cholecystectomy, with worsening abdominal pain and a workup including CAT scan and labs that were suggestive of bleeding postop. I described to her a procedure of diagnostic laparoscopy to evaluate for potential bile leak which was less likely and to evaluate for ongoing bleeding. We did spoke of the possible alternatives and watchful waiting and serial blood draws. The patient with abdominal pain had agreed to intervention to make her feel better and evacuate what was thought to be blood in the abdomen. I have outlined the details of the procedure, going over the risks, benefits, and alternatives including, but not limited to, bleeding, infection, injury to adjacent organs, ongoing bleeding, need for drain, need for open procedure, need for additional procedures, and the possibility of hernia formation. The patient agreed and signed consent. DESCRIPTION OF PROCEDURE: She was marked, taken to the operating room, placed on the operating table in the supine position. Preoperative antibiotics were given. Sequential devices were placed on bilateral lower extremities, general anesthesia was induced. The patient's abdomen was prepped with Betadine and time-out was performed. A 5-mm Optiview trocar was inserted through the right upper quadrant midclavicular port site. Once we were in, we could insufflate the abdomen to a pressure of 15 mmHg. The patient tolerated the insufflation well. Camera was inserted. There was a fair amount of blood over the liver and in the pelvis. Additional trocars were placed in the following positions: A 5 mm in the right lateral site through the previous incision site and a 12 mm at the subxiphoid area. A fourth trocar was then inserted at the supraumbilical site. This was a separate incision of 5 mm in the upper midline. I did wish to go through the previous incision as there was a hernia at the site that was primarily repaired. We suctioned blood with a large 10-mm suction tip removing blood clot over the liver. We lifted up the cut edge of the gallbladder at the liver edge and held this up and evaluated the cystic ducts, cystic artery stumps. Clips were intact at these sites and there was oozing. I placed gauze on these sites rather than suction at these areas to prevent loosening of these clips. With gauze in place at the gallbladder fossa, we then continued our evacuation of blood clot throughout the abdomen both over the spleen and in the pelvis. We irrigated this well until the effluent was mostly clear with some blood tinge. We then next turned our attention to the surgical site, lifted off the gauze and saw that the liver edge had no evidence of recent bleeding. It was at the cystic duct stump that we could see ongoing oozing. I did not wish to add any more clips or do any dissection to the site, so rather we placed Surgicel to this area and I put gauze and held pressure. The gauze was removed and all gauzes that have been placed were removed. We left the Surgicel in place. Next, a #10 ADDIS drain was brought into the subxiphoid incision site and placed at the Morison pouch and brought out through the right lateral port site, sutured to the skin with 3-0 Prolene suture. The abdomen was allowed to collapse. Trocar was removed under direct vision, and the additional incisions were reapproximated with 4-0 Monocryl subcuticular sutures followed by Steri- Strips and sterile dressing. The patient tolerated the procedure well, was woken up and transferred to PACU in stable condition. [id number]/[facility] #: [id number] PEDRO
--- NOTE | 2019-06-16 12:59 | DS ---
CC: Dr. Héctor Alberto * DISCHARGE SUMMARY: DATE OF ADMISSION: 06/14/19 DATE OF DISCHARGE: 06/16/19 ATTENDING SURGEON: Dr. Azam Atwood * (JANETH Nicole, dictating). HOSPITAL COURSE: Please refer to admission history and physical and operative note for details. The patient was found to be having significant abdominal pain a day and a half post from an otherwise uneventful laparoscopic cholecystectomy with Dr. De Santiago on 06/13/19. Her workup included a CT scan which showed a significant fluid collection with density consistent with blood. A subsequent HIDA scan was normal showing no extravasation of radionuclide. She was taken to the operating room by Dr. Atwood on 06/15/19, at which time laparoscopy revealed a moderate amount of both liquid and clotted blood. This was evacuated with suction. Thorough irrigation was performed and the liver bed was inspected, revealing no clear active source for the postoperative bleed. Surgicel was placed and a Francesco-Pope drain at the conclusion of the procedure. Postoperatively, she has done well with improvement in her pain. Her vital signs are stable. She did have a T-max of 100.3 last evening and this morning is 98.3. See also separate progress note from today. Francesco- Pope drain was draining a minimal amount of light serosanguineous drainage and was, therefore, removed. A dry sterile dressing was placed. Instructions were reviewed regarding wound care, activity, and diet. A repeat CBC is still pending prior to discharge. At this point, pending repeat CBC, she is discharged to home in good condition. She has an existing appointment for followup next week on 06/23/[address] De Santiago. JANETH NICOLE [id number]/[facility] #: [id number] PEDRO
== END 2019-06-16 13:00 | disposition home or self-care (01) ==
LOC: ED 20:23 → SSU 06-15 00:44
PROVIDERS: ADMIT Surgery; ATTEND Surgery
DX: K66.1 Hemoperitoneum (principal); R10.9 Unspecified abdominal pain; Z90.49 Acquired absence of other specified parts of digestive tract; K58.9 Irritable bowel syndrome, unspecified; F41.9 Anxiety disorder, unspecified; A69.20 Lyme disease, unspecified; Z87.891 Personal history of nicotine dependence
CPT/HCPCS: 36415; 74177; 78226; 80053; 82150; 83605; 83690; 83735; 85025; 85610; 85730; 86140; 86850; 86900; 86901; 96361; 96374; 96375; 96376; 99284; A9270-GY; A9537; G0378; J0330; J1100; J1170; J1240; J1885; J2250; J2405; J2704; J2765; J3010; Q9967

== ENCOUNTER 2019-11-29 16:37 | Emergency (ER) | payer OTHER ==
--- NOTE | 2019-11-29 16:56 | ED ---
Neurological HPI - HPI Summary HPI Summary: This pt is a 44 Y/O F presenting to [facility] with a CC of L sided facial numbness and L tongue tingling. 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 She states that the feeling radiates down her L arm and L leg. She states that her L arm and L leg are weaker than normal. She states that she currently has tremors. She states that she has a PMHx of lyme disease and possible neurological deficits due to complications of lyme. She denies a Hx of MS, drooling, visual changes, and headaches. She states that she has no aggravating or alleviating symptoms. She states that she has a Hx of visual effects she describes as static and snowing. She states that she has had multiple CT scans throughout this year and had a recent MRI to r/o MS. 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 Negative: Visual Changes, Headache TPA Considered: No - contridictory w/out imaging - Additional Pertinent History Primary Care Physician: [id number] - Allergy/Home Medications Allergies/Adverse Reactions: Allergies Allergy/AdvReac Type Severity Reaction Status Date / Time adhesive Allergy Severe Rash Verified 09/12/19 15:30 gluten Allergy Severe has celiac Verified 09/12/19 15:30 disease latex Allergy Severe Rash Verified 09/12/19 15:30 PMH/Surg Hx/FS Hx/Imm Hx Previously Healthy: Yes Endocrine/Hematology History: Denies: Hx Diabetes Cardiovascular History: Denies: Hx Hypertension, Hx Pacemaker/ICD Respiratory History: Reports: Hx Seasonal Allergies GI History: Reports: Hx Crohn's Disease, Hx Irritable Bowel - r/t celiac, Other GI Disorders - celiac disease History: Reports: Other Problems/Disorders - ovarian cysts Denies: Hx Dialysis, Hx Renal Disease Sensory History: Denies: Hx Contacts or Glasses, Hx Legally Blind, Hx Deafness, Hx Hearing Aid Opthamlomology History: Denies: Hx Contacts or Glasses, Hx Legally Blind Neurological History: Reports: Hx Nerve Disease - lyme disease- neuroligical Psychiatric History: Reports: Hx Anxiety, Hx Depression Denies: Hx Panic Disorder - Cancer History Hx Chemotherapy: No Hx Radiation Therapy: No - Surgical History Surgical History: Yes Surgery Procedure, Year, and Place: tonsillectomy 2006 approx. cholecystectomy with cydney drain. 05/2019. PT IS DIFFICULT STICK NEEDS US GUIDED INJECTION MAIN [place] ONLY Hx Anesthesia Reactions: Yes - does get real cold after surgery and during - Immunization History Immunizations Up to Date: Yes Infectious Disease History: No Infectious Disease History: Denies: Traveled Outside the [place] in Last 30 Days - Family History Known Family History: Positive: Hypertension Negative: Diabetes - Social History Occupation: Employed Full-time Lives: With Family Alcohol Use: None Hx Substance Use: No Substance Use Type: Reports: None Hx Tobacco Use: Yes Smoking Status (MU): Former Smoker Have You Smoked in the Last Year: No Review of Systems Eyes: Negative Neurological: Other - POSITIVE: L sided tingling Positive: Weakness - L sided , Numbness - L sided. Negative: Headache All Other Systems Reviewed And Are Negative: Yes Physical Exam - Summary Physical Exam Summary: Constitutional: Well-developed, Well-nourished, Alert. (-) Distressed Skin: Warm, Dry HENT: Normocephalic; Atraumatic Eyes: Conjunctiva normal Neck: Musculoskeletal ROM normal neck. (-) JVD, (-) Stridor, (-) Tracheal deviation Cardio: Rhythm regular, rate normal, Heart sounds normal; Intact distal pulses; The pedal pulses are 2+ and symmetric. Radial pulses are 2+ and symmetric. Pulmonary/Chest wall: Effort normal. (-) Respiratory distress, (-) Wheezes, (-) Rales Abd: Soft, (-) tenderness, (-) Distension, (-) Guarding, (-) Rebound Musculoskeletal: (-) Edema Neuro: Alert, Oriented x3, decreased sensation to light touch L face, no motor deficits. Psych: Mood and affect Normal Triage Information Reviewed: Yes Vital Signs On Initial Exam: Initial Vitals Temp Pulse Resp BP Pulse Ox 97.9 F 111 16 146/97 100 11/29/19 16:38 11/29/19 16:38 11/29/19 16:38 11/29/19 16:38 11/29/19 16:38 Vital Signs Reviewed: Yes Procedures - Sedation Patient Received Moderate/Deep Sedation with Procedure: No Diagnostics - Vital Signs Vital Signs Temp Pulse Resp BP Pulse Ox 11/29/19 16:38 97.9 F 111 16 146/97 100 - Laboratory Result Diagrams: 11/29/19 17:24 11/29/19 17:24 Lab Statement: Any lab studies that have been ordered have been reviewed, and results considered in the medical decision making process. - EKG 1715 Cardiac Rate: NL - 87 BPM EKG Rhythm: Sinus Rhythm ST Segment: Normal Ectopy: None EKG Comparison: No Significant Change Summary of EKG Findings: An EKG at 1715 reveals NSR at 87 BPM, nml axis, nml intervals. No STEMI. No acute changes. Interpreted by Dr. Velazquez, 11/29/2019 1715. NIH Scale - NIH Scale Level of Consciousness: Alert/Keenly Responsive Ask Patient the Month and His/Her Age: Both Correct Ask Pt to Open/Close Eyes and French Lecturer/Release Non-Paretic Hand: Both Correctly Best Gaze (Only Horizontal Eye Movement): Normal Visual Field Testing: No Visual Loss Facial Paresis-Pt to Smile & Close Eyes or Grimace Symmetry: Normal/Symmetrical Motor Function - Right Arm: No Drift-Holds 10 Seconds Motor Function - Left Arm: No Drift-Holds 10 Seconds Motor Function - Right Leg: No Drift-Holds 10 Seconds Motor Function - Left Leg: No Drift-Holds 10 Seconds Limb Ataxia-Must be out of Proportion to Weakness Present: Absent Sensory (Use Pinprick to Test Arms/Legs/Trunk/Face): Pinprick Less on Affected Best Language (Describe Picture, Name Items): No Aphasia Dysarthria (Read Several Words): Normal Extinction and Inattention: No Abnormality Total Score: 1 Course/Dx - Course Course Of Treatment: This pt is a 44 Y/O F presenting to [facility] with a CC of L sided facial numbness and L tongue tingling. 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 She states that the feeling radiates down her L arm and L leg. She states that her L arm and L leg are weaker than normal. She states that she currently has tremors. She states that she has a PMHx of lyme disease and possible neurological deficits due to complications of lyme. She denies a Hx of MS, drooling, visual changes, and headaches. She states that she has no aggravating or alleviating symptoms. She states that she has a Hx of visual effects she describes as static and snowing. She states that she has had multiple CT scans throughout this year and had a recent MRI to r/o MS. Her PE found that she had decreased sensations to her L face without motor deficits. No objective weakness, does not appear like guido's palsy. An EKG at 1715 reveals NSR at 87 BPM, nml axis, nml intervals. No STEMI. No acute changes. She will be diagnosed with paraesthia and will follow up with her neurologist as directed tomorrow. - Diagnoses Provider Diagnoses: Paresthesia Discharge ED - Sign-Out/Discharge Documenting (check all that apply): Patient Departure - discharge - Discharge Plan Condition: Stable Disposition: HOME Patient Education Materials: Paresthesia (ED) Referrals: Héctor Alberto MD [Primary Care Provider] - 2 Days Additional Instructions: PLEASE FOLLOW UP WITH YOUR NEUROLOGIST TOMORROW DIRECTED AND YOUR PRIMARY CARE PHYSICIAN IN 1-3 DAYS AND RETURN TO THE EMERGENCY DEPARTMENT IF YOU NEW OR WORSENING SYMPTOMS. - Attestation Statements Document Initiated by Scribe: Yes Documenting Scribe: Garret Holcomb Provider For Whom Priyanka is Documenting (Include Credential): Kendell Velazquez DO Scribe Attestation: Garret Aleman, scribed for Kendell Velazquez DO on 11/29/19 at 1833. Status of Scribe Document: Ready
[2019-11-29 17:36] LABS: ABS Basophils 0.1 10^3/ul (0-0.2); ABS Eosinophils 0.2 10^3/ul (0-0.6); ABS Lymphocytes 1.9 10^3/ul (1.0-4.8); ABS Monocytes 0.5 10^3/ul (0-0.8); Eosinophil % 2.7 %; Hematocrit 41 % (35-47); Hemoglobin 13.9 g/dL (12.0-16.0); Lymphocyte % 28.3 %; Mean Corpuscular HGB Conc 34 g/dL (31-36); Mean Corpuscular Hemoglobin 31 pg (27-31); Mean Corpuscular Volume 89 fL (80-97); Mean Platelet Volume 7.4 fL (7.4-10.4); Nucleated Red Blood Cells % 0.1; Platelet Count 335 10^3/uL (150-450); Red Blood Count 4.53 10^6 /uL (3.70-4.87); Red Cell Distribution Width 14 % (10-15); White Blood Count 6.7 10^3/uL (3.5-10.8)
--- OUTSIDE RECORDS SUMMARY | 2019-11-29 17:48 | XMS REPORT | Continuity of Care Document ---
:1975 External Reference #:[id number] Author Name Brian Gamboa M.D. (transmitted by agent of provider Barbie David) Address [address] [place] [address] Care Team Providers Name Role Phone Ney Javed NP - Family Care Team Information Flight Line Service Attendant [phone] Héctor Alberto MD - Endocrinology, Care Team Information Flight Line Service Attendant Diabetes & Metabolism Problems Active Problems Provider Date Seda Bach NP Onset: 02/01/2019 Note: positive on US Irritable bowel syndrome Nish Martinez MD Onset: 05/18/2009 Lyme disease Nish Martinez MD Onset: 05/03/2019 Note: Western blot on second time April 2019 positive; took 3 weeks of doxycycline in February 2019 Social History Type Date Description Comments Sex Unknown Tobacco Use Start: Unknown End: Former Cigarette Smoker Variable amounts. 7 years Smoking Status Reviewed: 10/12/19 Former Cigarette Smoker Variable amounts. 7 years ETOH Use Denies alcohol use Tobacco Use Start: Unknown End: Patient is a former Unknown smoker Recreational Drug Use Denies Drug Use Exercise Type/Frequency Does not exercise Limited by tick borne disease symptoms Allergies, Adverse Reactions, Alerts Active Allergies Reaction Severity Comments Date NKDA 05/13/2018 Latex Rash 02/24/2019 Environmental 10/05/2019 Medications Active Medications SIG Qnty Indications Ordering Date Provider Naltrexone HCL 4.5 mg compounded in 15gm Brian Gamboa, 08/26/2019 Powder capsules by mouth M.D. every day Multivitamin Adult 1 by mouth every day Unknown Tablets Vitamin D-3 1 by mouth every day Unknown 1000Unit Capsules Vitamin C 1 by mouth once Unknown W/Vitamin E daily [id number] Capsules Odorless Coated Fish take one Unknown Oil/[place]-3 capsule/tablet daily 1000mg by mouth Capsules DR Lopez Allergy 1 by mouth every day Unknown 10mg Tablets Probiotic 1 by mouth every day Unknown Capsules Nystatin Take 1 Tablet By Unknown [id number] Mouth Twice A Day Tablets Can Take With Antibiotics Ferrous Sulfate Iron 1 by mouth three Unknown times a day 200(65Fe) mg Tablets Cefuroxime Axetil Take One Tablet By Unknown 500mg Mouth Twice A Day Tablets With Food Daily Bactrim 1 by mouth daily Unknown Malarone 1 by mouth every day Unknown 250-100mg Tablets Meg Take One Tablet By Unknown 90-20mcg Mouth Every Day Tablets History Medications Progesterone Take one by mouth 30caps Ruma Esqueda N.P. 05/05/2019 - Micronized Day 12-Day 28 of 10/04/2019 100mg Capsules your menstrual cycle Immunizations Description No Information Available Vital Signs Date Vital Result Comment 10/12/2019 2:37pm Height 64 inches 5'4" Weight 151.25 lb Heart Rate 88 /min BP Systolic 118 mmHg BP Diastolic 80 mmHg Body Temperature 98.1 F Pain Level 3 O2 % BldC Oximetry 98 % BMI (Body Mass Index) 26.0 kg/m2 10/05/2019 10:35am Height 64 inches 5'4" Weight 150.12 lb Heart Rate 72 /min BP Systolic Sitting 122 mmHg Lue reg cuff BP Diastolic Sitting 82 mmHg Lue reg cuff O2 % BldC Oximetry 98 % On Ra BMI (Body Mass Index) 25.8 kg/m2 Results Test Acquired Date Facility Test Result H/L Range Note Urinalysis Profile 09/05/2019 [facility] Urine Color Colorless [address] [place] [address] [phone] Urine Appearance Clear Urine Specific [place] 1.003 Low 1.010-1.030 Urine pH 6.0 Normal 5-9 Urine Urobilinogen Negative Negative Urine Ketones Negative Negative Urine Protein Negative Negative Urine Leukocytes Negative Negative Urine Blood Negative Negative Urine Nitrite Negative Negative Urine Bilirubin Negative Negative Urine Glucose Negative Negative CBC Auto 08/26/2019 [facility] White Blood 8.0 10^3/uL Normal 3.5-10.[address] [place] [address] [phone] Red Blood Count 4.66 10^6/uL Normal 3.70-4.87 Hemoglobin 14.1 g/dL Normal 12.0-16.0 Hematocrit 42 % Normal 35-47 Mean Corpuscular Volume 89 fL Normal 80-97 Mean Corpuscular Hemoglobin 30 pg Normal 27-31 Mean Corpuscular HGB Conc 34 g/dL Normal 31-36 Red Cell Distribution Width 13 % Normal 10-15 Platelet Count 393 10^3/uL Normal 150-450 Mean Platelet Volume 7.3 fL Low 7.4-10.4 Abs Neutrophils 5.2 10^3/uL Normal 1.5-7.7 Abs Lymphocytes 2.0 10^3/uL Normal 1.0-4.8 Abs Monocytes 0.6 10^3/uL Normal 0-0.8 Abs Eosinophils 0.2 10^3/uL Normal 0-0.6 Abs Basophils 0.1 10^3/uL Normal 0-0.2 Abs Nucleated RBC 0.0 10^3/uL Granulocyte % 64.8 % Lymphocyte % 24.8 % Monocyte % 6.9 % Eosinophil % 2.4 % Basophil % 1.1 % Nucleated Red Blood Cells % 0.1 Comp Metabolic 08/26/2019 [facility] Sodium 139 mmol/L Normal 135-[address] [place] [address] [phone] Potassium 4.7 mmol/L Normal 3.5-5.0 Chloride 106 mmol/L Normal 101-111 Co2 Carbon Dioxide 26 mmol/L Normal 22-32 Anion Gap 7 mmol/L Normal 2-11 Glucose 97 mg/dL Normal 70-100 Blood Urea Nitrogen 15 mg/dL Normal 6-24 Creatinine 0.81 mg/dL Normal 0.51-0.95 BUN/Creatinine Ratio 18.5 Normal 8-20 Calcium 9.9 mg/dL Normal 8.6-10.3 Total Protein 7.1 g/dL Normal 6.4-8.9 Albumin 4.6 g/dL Normal 3.2-5.2 Globulin 2.5 g/dL Normal 2-4 Albumin/Globulin Ratio 1.8 Normal 1-3 Total Bilirubin 0.30 mg/dL Normal 0.2-1.0 Alkaline Phosphatase 58 U/L Normal 34-104 Alt 14 U/L Normal 7-52 Ast 15 U/L Normal 13-39 Egfr Non- 77.5 >60 Egfr 93.8 >60 1 Laboratory test 08/26/2019 [facility] C Reactive 1.49 mg/L Normal <8.01 [address] [place] [address] [phone] Transferrin 274 mg/dL Normal 203-362 Ferritin 23.4 ng/mL Normal 11-307 C Difficile PCR SEE RESULT BELOW 3 Cortisol 10.92 g/dL 4 Laboratory test 08/26/2019 [facility] Complement C4a 1271 0- 2830 [address] Main Lab Only ng/[place] [address] [phone] Laboratory test 08/08/2019 [facility] Rheumatoid < 10 Normal < [address] Factor IU/[place] [address] [phone] Erythrocyte Sed Rate 2 mm/Hr Normal 0-19 Anti Nuclear Antibody 0.4 U 6 Tick-Borne Panel 08/08/2019 [facility] Babesia Negative Negative PCR Blood [address] [place] [place] [address] [phone] Babesia ducani Negative Negative Babesia divergens/Mo-1 Negative Negative 7 Anaplasma phagocytophilum Negative Negative Ehrlichia chaffeensis Negative Negative Ehrlichia ewingii/canis Negative Negative Ehrlichia muris eauclairensis Negative Negative 8 B. miyamotoi PCR, B Negative Negative 9 Laboratory 06/13/2019 [facility] Surgical Pathology SEE RESULT 10 test finding [address] [place] [address] [phone] Laboratory 06/02/2019 [facility] Thyroperoxidase AB 0.66 IU/mL Normal <9 test finding [address] [place] [address] [phone] Free T4 (Free Thyroxine) 0.84 ng/dL Normal 0.61-1.12 T3 Free 3.00 pg/mL Normal 2.5-3.9 C Reactive Protein < 1.00 mg/L Normal <8.01 Tick-Borne Panel 05/22/2019 [facility] Babesia Negative Negative PCR Blood [address] [place] [address] [phone] Babesia ducani Negative Negative Babesia divergens/Mo-1 Negative Negative 11 Anaplasma phagocytophilum Negative Negative Ehrlichia chaffeensis Negative Negative Ehrlichia ewingii/canis Negative Negative Ehrlichia muris eauclairensis Negative Negative 12 B. miyamotoi PCR, B Negative Negative 13 Immunoglobulins 05/18/2019 [facility] Immunoglobulin G 1120 767 - 14 Serum Quant 101 [facility] mg/dL [address] [place] [address] [phone] Immunoglobulin M 61 mg/dL 37 - 286 Immunoglobulin A 358 mg/dL Abnormal 61 - 356 Vitamin B6 05/18/2019 [facility] Pyridoxal 5-Phosphate 27 g/L 5-50 15 [address] [place] [address] [phone] Pyridoxic Acid 11 g/L 3-30 16 Celiac Hla 05/18/2019 [facility] Hla-Dqa1 SEE BELOW 17 [address] [place] [address] [phone] Hla-[id number] SEE BELOW 18 Celiac Gene Pairs Present? Yes Celiac Gene Interpretation See Comment 19 Laboratory test 05/18/2019 [facility] Creatine 63 U/L Normal 10-223 finding 101 [facility] Kinase(CK) [place] [address] [phone] Complement C3 99 mg/dL 75 - 175 20 Complement C4 14 mg/dL 14 - 40 21 Vitamin B1 (Whole Blood) 127 nmol/L 70-180 22 RBC Folic Acid See Comment 23 Laboratory test finding 04/26/2019 [facility] Estradiol 179 pg/ mL [address] [place] [address] [phone] Progesterone 8.4 ng/mL 25 1 Because ethnic data is not always [...] 5 Kidney failure <15 (or dialysis) 2 C. Difficile toxin testing is not performed on formed stool specimens. Test of cure on positive 3 SEE RESULT BELOW Name: AALIYAHALEXANDRA James : [address]: Brian Gamboa MD Acct: [id number] Unit: [id number] AGE: 44 Location: LAB Re08/26/19 SEX: F Status: REG REF SPEC: [id number] JAH: 08/26/19 [facility] DR: Brian Gamboa MD REQ: [id number] RECD: 08/26/19 STATUS: SHANIQUE LOVELL DR: Diamante Bustamante MD _ SOURCE: STOOL SPDESC: ORDERED: C. diff PCR, Fecal Lactoferr COMMENTS: C. Difficile toxin testing is not performed on formed stool specimens. Test of cure on positive patients is not recommended. Procedure Result Reported Site Stool Specimen Description Final 08/26/19- 1240 ML Stool Color Brown Stool Form Semi-formed Stool Consistency Soft C. difficile PCR Final 08/26/191240 ML Test not performed Fecal Lactoferrin (Stool WBC) Final 08/26/19- 5 ML Fecal Lactoferrin Negative by Immunoassay TEST LIMITATIONS: Assay detects elevated levels of lactoferrin released from fecal leukocytes as a marker of intestinal inflammation. The test may not be appropriate in immunocompromised persons. Fecal samples from breast fed infants should not be used with this assay. * ML - Main Lab . END OF REPORT DEPARTMENT OF PATHOLOGY, [address] [place] [address] Markus Navarrete M.D. Director [facility] # [id number] 4 AM 8.7-22.4 PM <10 5 ADDITIONAL INFORMATION This test uses a kit/reagent designated by the client service representative as for research use, not for clinical use. The performance characteristics of this test have been validated by [facility]. It has not been cleared or approved by the U.S. Food and Drug Administration. The results are not intended to be used as the sole means for clinical diagnosis or patient management decisions. This laboratory is certified under the Clinical Laboratory Improvement Amendments of 1988 (CLIA-88) as qualified to perform high complexity clinical laboratory testing. Test Performed by: [facility] [address] [place] [address] 6 REFERENCE VALUE <=1.0 (Negative) Test Performed by: [facility] [address] [place] [address] Audio Video Mechanic: Dionte Gutierrez M.D. Ph.D.; CLIA# [id number] 7 ADDITIONAL INFORMATION This test was developed and its performance characteristics determined by [facility] in a manner consistent with CLIA requirements. This test has not been cleared or approved by the U.S. Food and Drug Administration. 8 ADDITIONAL INFORMATION This test was developed and its performance characteristics determined by [facility] in a manner consistent with CLIA requirements. This test has not been cleared or approved by the U.S. Food and Drug Administration. 9 ADDITIONAL INFORMATION This test was developed and its performance characteristics determined by [facility] in a manner consistent with CLIA requirements. This test has not been cleared or approved by the U.S. Food and Drug Administration. Test Performed by: [facility] [address] [place] [address] Audio Video Mechanic: Dionte Gutierrez M.D. Ph.D.; CLIA# [id number] 10 SEE RESULT BELOW Name: ALEXANDRA FISCHER : [address]: Star De Santiago MD Acct: [id number] Unit: [id number] AGE: 43 Location: OR Re06/13/19 SEX: F Status: REG [facility] SPEC: [id number] JAH: 06/13/19- [facility] DR: Star De Santiago MD REQ: [id number] RECD: 06/13/19 STATUS: SOUT _ ORDERED: LEVEL 3 FINAL DIAGNOSIS Gallbladder, cholecystectomy: -- Chronic cholecystitis with cholelithiasis. PRE-OPERATIVE DIAGNOSIS Calculus of gallbladder with chronic cholecystitis GROSS DESCRIPTION The specimen is received in formalin labeled, Gallbladder, and consists of a 9.4 x 3.1 x 2.3 cm intact gallbladder. The serosa is glistening smooth keenan-soni to yellow with mild adherent fat. Within the lumen there are two yellow ovoid bosselated choleliths measuring 0.9 cm and 1.4 cm in greatest dimension admixed with green viscid bile. The mucosa is reticulated to focally septated green with moderate yellow stippling and the wall thickness averages 0.2 cm. Territory Sales Representative sections, one cassette. Signed by and Reported on: Markus Navarrete MD 1041 END OF REPORT DEPARTMENT OF PATHOLOGY, [address] [place] [address] Markus Navarrete M.D. Director [facility] # [id number] 11 ADDITIONAL INFORMATION This test was developed and its performance characteristics determined by [facility] in a manner consistent with CLIA requirements. This test has not been cleared or approved by the U.S. Food and Drug Administration. 12 ADDITIONAL INFORMATION This test was developed and its performance characteristics determined by [facility] in a manner consistent with CLIA requirements. This test has not been cleared or approved by the U.S. Food and Drug Administration. 13 ADDITIONAL INFORMATION This test was developed and its performance characteristics determined by [facility] in a manner consistent with CLIA requirements. This test has not been cleared or approved by the U.S. Food and Drug Administration. Test Performed by: [facility] [employer] [address] [place] [address] 14 Test Performed by: [facility] [employer] [facility] [address] [place] [address] 15 ADDITIONAL INFORMATION This test was developed and its performance characteristics determined by [facility] in a manner consistent with CLIA requirements. This test has not been cleared or approved by the U.S. Food and Drug Administration. 16 ADDITIONAL INFORMATION This test was developed and its performance characteristics determined by [facility] in a manner consistent with CLIA requirements. This test has not been cleared or approved by the U.S. Food and Drug Administration. Test Performed by: [facility] [place] [address] 17 RESULT: 05:01,05 REFERENCE VALUE Not Applicable 18 RESULT: 02:01,03:01 DQ Serologic Equivalent: 2,7 REFERENCE VALUE Not Applicable 19 These genes are permissive for celiac disease. The absence of HLA celiac permissive genes would make the presence of celiac disease unlikely. However, these genes can also be present in the normal population. ADDITIONAL INFORMATION Method: Molecular typing of HLA antigens performed using reverse SSOP and/or SSP methods, reported as serological equivalents and low to medium resolution molecular values. Performing Laboratory CLIA# [id number] Test Performed by: [address] [address] 20 Test Performed by: [facility] [place] [address] 21 Test Performed by: [facility] [place] [address] 22 ADDITIONAL INFORMATION This test was developed and its performance characteristics determined by [facility] in a manner consistent with CLIA requirements. This test has not been cleared or approved by the U.S. Food and Drug Administration. Test Performed by: [facility] [address] [place] [address] 23 Test Result Flag Units Reference Folate, RBC Folate, Hemolysate 371.2 ng/mL Not Estab. Hematocrit 42.7 % 34.0-46.6 Folate, RBC 869 ng/mL >498 Performed at [address] [address] Dir: Ofelia Oliva MD 24 Estradiols <40 pg/mL are sent to a reference lab for low range testing. Postmenopausal Females < 20 Ovulating females: by day in cycle relative to LH Peak Follicular phase - 12 10-50 - 4 60-200 Mid-cycle - 1 120-375 Luteal phase + 2 50-155 + 6 60-260 + 12 15-115 25 Female reference ranges for Progesterone: Follicular phase.......0.3 - 1.5 ng/ml Mid-luteal phase.......5.2 - 18.5 ng/ml Postmenopausal.........< 0.8 ng/ml 1st trimester.........4.7 - 50.0 ng/ml 2nd trimester.........19.4 - 45.3 ng/ml Procedures Date Code Description Status 06/15/2019 50981 Laparoscopy/Peritoneoscopy W/Aspiration Of Cavity Or Completed Cyst 06/15/2019 57283 Laparoscopy/Peritoneoscopy W/Aspiration Of Cavity Or Completed Cyst 06/15/2019 12013 Laparoscopy/Peritoneoscopy W/Aspiration Of Cavity Or Completed Cyst 06/13/2019 78740 Laparoscopy Cholecystectomy Completed 06/13/2019 87335 Laparoscopy Cholecystectomy Completed 06/13/2019 23905 Laparoscopy Cholecystectomy Completed 04/17/2019 91958 Diffusing Capacity Completed 04/17/2019 14248 Plethysmography Determination Lung Volumes & Per Airway Completed Resist 04/17/2019 23934 Spirometry Incl Graphic Record Completed 06/21/2018 08646658 Colonoscopy Completed 07/15/2015 65610339 Colonoscopy Completed 04/14/2007 04037891 Colonoscopy Completed Medical Devices Description No Information Available Encounters Type Date Location Provider Dx Diagnosis Office Visit 10/05/2019 Pulmonology And Curry Soto MD J45.998 Other asthma 10:45a [facility] R91.8 Other nonspecific abnormal finding of lung field Office Visit 08/25/2019 9:20a Rheumatology Brian A69.22 Other neurologic Services Of Karolina Gamboa M.D. 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 disease R20.8 Other disturbances of skin sensation M79.10 Myalgia, unspecified site R31.9 Hematuria, unspecified R19.7 Diarrhea, unspecified Office Visit 06/09/2019 Surgical Star De Santiago, 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[facility] , 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 Office Visit 06/05/2019 Rheumatology Brian Gamboa A69.22 Other neurologic 8:40a Services Of Karolina Olivares 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 disease R20.8 Other disturbances of skin sensation R53.83 Other fatigue Office Visit 05/18/2019 [facility] Gastroenterology Nish Escobar K58.2 Mixed irritable 10:45a MD Juan bowel syndrome F41.8 Other specified anxiety disorders 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 pain, unspecified Assessments Date Code Description Provider 10/12/2019 A69.22 Other neurologic 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 Brian Gamboa M.D. disease 10/12/2019 R20.8 Other disturbances of skin sensation Brian Gamboa M.D. 10/12/2019 M79.10 Myalgia, unspecified site Brian Gamboa M.D. 10/05/2019 J45.998 Other asthma Curry Soto MD 10/05/2019 R91.8 Other nonspecific abnormal finding of Curry Soto MD lung field 08/25/2019 A69.22 Other neurologic 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 Brian Gamboa M.D. disease 08/25/2019 R20.8 Other disturbances of skin sensation Brian Gamboa M.D. 08/25/2019 M79.10 Myalgia, unspecified site Brian Gamboa M.D. 08/25/2019 R31.9 Hematuria, unspecified Brian Gamboa M.D. 08/25/2019 R19.7 Diarrhea, unspecified Brian Gamboa M.D. 06/23/2019 K80.10 Calculus of gallbladder with chronic Star De Santiago MD, FACS cholecystitis without o 06/16/2019 K80.10 Calculus of gallbladder with chronic JANETH Teague cholecystitis without o 06/15/2019 K91.840 Postprocedural hemorrhage of a digestive Azam Atwood MD, FACS system organ or structure following a digestive system procedure 06/13/2019 K80.10 Calculus of gallbladder with chronic Star De Santiago MD, FACS cholecystitis without o 06/12/2019 K80.10 Calculus of gallbladder with chronic Star De Santiago MD, FACS cholecystitis without o 06/09/2019 K80.10 Calculus of gallbladder with chronic Star De Santiago MD, FACS cholecystitis without o 06/05/2019 A69.22 Other neurologic 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 Brian Gamboa M.D. disease 06/05/2019 R20.8 Other disturbances of skin sensation Brian Gamboa M.D. 06/05/2019 R53.83 Other fatigue Brian Gamboa M.D. 05/18/2019 K58.2 Mixed irritable bowel syndrome Nish Martinez MD 05/18/2019 F41.8 Other specified anxiety disorders Nish Martinez MD 05/18/2019 A69.22 Other neurologic 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 Nish Martinez MD disease 05/11/2019 R51 Headache Brian Gamboa M.D. 05/11/2019 R20.8 Other disturbances of skin sensation Brian Gamboa M.D. 05/11/2019 R53.83 Other fatigue Brian Gamboa M.D. 05/11/2019 M79.10 Myalgia, unspecified site Brian Gamboa M.D. 04/26/2019 R10.30 Lower abdominal pain, unspecified Ruma Esqueda, N.P. 04/17/2019 R06.02 Shortness of breath Viridiana Fischer MD Plan of Treatment Future Appointment(s):04/16/2020 9:00 am - Brian Gamboa M.D. at [facility]10/12/2019 - Brian Gamboa M.D.A69.22 Other neurologic 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 diseaseFollow up:Follow up in 5 to 6 months or sooner if pwmxbgD50.8 Other disturbances of skin pxvriyxwkT00.10 Myalgia, unspecified site Functional Status Description No Information Available Mental Status Description No Information Available Referrals Description No Information Available
--- OUTSIDE RECORDS SUMMARY | 2019-11-29 17:48 | XMS REPORT | Continuity of Care Document ---
:1975 External Reference #:[id number] Author Name Curry Soto MD (transmitted by agent of provider Codi Benjamin) Address [address], [address] [place] [address] Care Team Providers Name Role Phone Ney Javed NP - Family Care Team Information Landscape Specialist [phone] Héctor Alberto MD - Endocrinology, Care Team Information Landscape Specialist [phone] Diabetes & Metabolism Problems Active Problems Provider Date Gallstone Nargis [...] Variable amounts. 7 years Smoking Status Reviewed: 10/05/19 Former Cigarette Smoker Variable amounts. 7 years [...] by mouth once Unknown W/Vitamin E daily [id number] Capsules Odorless Coated Fish take one Unknown Oil/[place]-3 capsule/tablet daily 1000mg by mouth Capsules DR Lopez Allergy 1 by mouth every day Unknown 10mg Tablets Probiotic 1 by mouth every day Unknown Capsules Nystatin Take 1 Tablet By Unknown [id number] Mouth Twice A Day Tablets Can Take [...] Available Vital Signs Date Vital Result Comment 10/05/2019 10:35am Height 64 inches 5'4" Weight 150.12 lb Heart Rate 72 /min BP Systolic Sitting 122 mmHg Lue reg cuff BP Diastolic Sitting 82 mmHg Lue reg cuff O2 % BldC Oximetry 98 % On Ra BMI (Body Mass Index) 25.8 kg/m2 08/25/2019 9:16am Height 64 inches 5'4" Weight 146.12 lb Heart Rate 80 /min BP Systolic 106 mmHg BP Diastolic 68 mmHg Pain Level 3 O2 % BldC Oximetry 98 % BMI (Body Mass Index) 25.1 kg/m2 Results Test Acquired Date Facility Test Result H/L Range Note Urinalysis Profile 09/05/2019 [facility] Urine Color Colorless [address] [place] [address] [phone] Urine Appearance Clear Urine Specific [place] 1.003 Low 1.010-1.030 Urine pH 6.0 Normal 5-9 Urine Urobilinogen Negative Negative Urine Ketones Negative Negative Urine Protein Negative Negative Urine Leukocytes Negative Negative Urine Blood Negative Negative Urine Nitrite Negative Negative Urine Bilirubin Negative Negative Urine Glucose Negative Negative CBC Auto 08/26/2019 [facility] White Blood 8.0 10^3/uL Normal 3.5-10.[address] [place] [address] [phone] Red Blood Count 4.66 10^6/uL Normal 3.70-4.87 [...] Blood Cells % 0.1 Comp Metabolic 08/26/2019 [facility] Sodium 139 mmol/L Normal 135-[address] [place], [place] [id number] [phone] Potassium 4.7 mmol/L Normal 3.5-5.0 Chloride 106 [...] Egfr 93.8 >60 1 Laboratory test 08/26/2019 [facility] C Reactive 1.49 mg/L Normal <8.01 [address] [place] [address] [phone] Transferrin 274 mg/dL Normal 203-362 Ferritin 23.4 ng/mL Normal 11-307 C Difficile PCR SEE RESULT BELOW 3 Cortisol 10.92 g/dL 4 Laboratory test 08/26/2019 [facility] Complement C4a 1271 0- 2830 [address] Main Lab Only ng/[place] [address] [phone] Laboratory test 08/08/2019 [facility] Rheumatoid < 10 Normal < [address] Factor IU/[place] [address] [phone] Erythrocyte Sed Rate 2 mm/Hr Normal 0-19 Anti Nuclear Antibody 0.4 U 6 Tick-Borne Panel 08/08/2019 [facility] Babesia Negative Negative PCR Blood [address] [place] [address] [phone] Babesia ducani Negative Negative Babesia divergens/Mo-1 Negative Negative 7 Anaplasma phagocytophilum Negative Negative Ehrlichia chaffeensis Negative Negative Ehrlichia ewingii/canis Negative Negative Ehrlichia muris eauclairensis Negative Negative 8 B. miyamotoi PCR, B Negative Negative 9 Laboratory 06/13/2019 [facility] Surgical Pathology SEE RESULT 10 test finding [address] [place] [address] [phone] Laboratory 06/02/2019 [facility] Thyroperoxidase AB 0.66 IU/mL Normal <9 test finding [address] [place] [address] [phone] Free T4 (Free Thyroxine) 0.84 ng/dL Normal 0.61-1.12 T3 Free 3.00 pg/mL Normal 2.5-3.9 C Reactive Protein < 1.00 mg/L Normal <8.01 Tick-Borne Panel 05/22/2019 [facility] Babesia Negative Negative PCR Blood [address] [place] [address] [phone] Babesia ducani Negative Negative Babesia divergens/Mo-1 Negative Negative 11 Anaplasma phagocytophilum Negative Negative Ehrlichia chaffeensis Negative Negative Ehrlichia ewingii/canis Negative Negative Ehrlichia muris eauclairensis Negative Negative 12 B. miyamotoi PCR, B Negative Negative 13 Immunoglobulins 05/18/2019 [facility] Immunoglobulin G 1120 767 - 14 Serum Quant [address] [facility] mg/dL [address] [place] [address] [phone] Immunoglobulin M 61 mg/dL 37 - 286 Immunoglobulin A 358 mg/dL Abnormal 61 - 356 Vitamin B6 05/18/2019 [facility] Pyridoxal 5-Phosphate 27 g/L 5-[address] [place] [address] [phone] Pyridoxic Acid 11 g/L 3-30 16 Celiac Hla 05/18/2019 [facility] Hla-Dqa1 SEE BELOW [address] [place] [address] [phone] Hla-DQB1 SEE BELOW 18 Celiac Gene Pairs Present? Yes Celiac Gene Interpretation See Comment 19 Laboratory test 05/18/2019 [facility] Creatine 63 U/L Normal 10-[address] Kinase(CK) [place] [address] [phone] Complement C3 99 mg/dL 75 - 175 20 Complement C4 14 mg/dL 14 - 40 21 Vitamin B1 (Whole Blood) 127 nmol/L 70-180 22 RBC Folic Acid See Comment 23 Laboratory test finding 04/26/2019 [facility] Estradiol 179 pg/ mL [address] [place] [address] [phone] Progesterone 8.4 ng/mL 25 1 Because ethnic [...] on positive 3 SEE RESULT BELOW Name: ALEXANDRA FISCHER : [address]: Brian Gamboa MD Acct: [id number] Unit: [id number] AGE: 44 Location: LAB Re08/26/19 SEX: F Status: REG REF SPEC: [id number] JAH: 08/26/19 [facility] DR: Brian Gamboa MD REQ: [id number] RECD: 08/26/19 STATUS: SHANIQUE LOVELL DR: Diamante Bustamante MD _ SOURCE: STOOL SPDESC: ORDERED: C. diff PCR, Fecal Lactoferr COMMENTS: C. Difficile toxin testing is not performed on formed stool specimens. Test of cure on positive patients is not recommended. Procedure Result Reported Site Stool Specimen Description Final 08/26/191240 ML Stool Color Brown Stool Form Semi-formed Stool Consistency Soft C. difficile PCR Final 08/26/191240 ML Test not performed Fecal Lactoferrin (Stool WBC) Final 08/26/195 ML Fecal Lactoferrin Negative by Immunoassay TEST LIMITATIONS: Assay detects elevated levels of lactoferrin released from fecal leukocytes as a marker of intestinal inflammation. The test may not be appropriate in immunocompromised persons. Fecal samples from breast fed infants should not be used with this assay. * ML - Main Lab . END OF REPORT DEPARTMENT OF PATHOLOGY, [address] [place] [address] Markus Navarrete M.D. Director [facility] # [id number] 4 AM 8.7-22.4 PM <10 5 ADDITIONAL INFORMATION This test uses a kit/reagent designated by the diamond die maker as for research use, not for clinical use. The performance characteristics of this test have been validated by [facility] ([place], [place]). It has not been cleared or approved by the U.S. Food and Drug Administration. The results are not intended to be used as the sole means for clinical diagnosis or patient management decisions. This laboratory is certified under the Clinical Laboratory Improvement Amendments of 1988 (CLIA-88) as qualified to perform high complexity clinical laboratory testing. Test Performed by: [facility] ([place], [place]) [facility] [address] [place] [phone] 6 REFERENCE VALUE <=1.0 (Negative) Test Performed by: [facility] - [facility] [address] [place] [address] Doorkeeper: Dionte Gutierrez M.D. Ph.D.; CLIA# [id number] 7 ADDITIONAL INFORMATION This test was developed and its performance characteristics determined by [facility] in a manner consistent with CLIA requirements. This test has not been cleared or approved by the U.S. Food and Drug Administration. 8 ADDITIONAL INFORMATION This test was developed and its performance characteristics determined by [facility] in a manner consistent with CLIA requirements. This test has not been cleared or approved by the U.S. Food and Drug Administration. 9 ADDITIONAL INFORMATION This test was developed and its performance characteristics determined by [facility] in a manner consistent with CLIA requirements. This test has not been cleared or approved by the U.S. Food and Drug Administration. Test Performed by: [facility] - [facility] [address] [place] [address] Doorkeeper: Dionte Gutierrez M.D. Ph.D.; CLIA# [id number] 10 SEE RESULT BELOW Name: ALEXANDRA FISCHER : [address]: Star De Santiago MD Acct: [id number] Unit: [id number] AGE: 43 Location: OR Re06/13/19 SEX: F Status: REG SDC SPEC: [id number] JAH: 06/13/19- [facility] DR: Star De Santiago MD REQ: [id number] RECD: 06/13/19 STATUS: SOUT _ ORDERED: LEVEL [...] and the wall thickness averages 0.2 cm. Owner Spa Director sections, one cassette. Signed by and Reported on: Markus Navarrete MD 1041 END OF REPORT DEPARTMENT OF PATHOLOGY, [address] [place] [address] Markus Navarrete M.D. Director [facility] # [id number] 11 ADDITIONAL INFORMATION This test was developed and its performance characteristics determined by [facility] in a manner consistent with CLIA requirements. This test has not been cleared or approved by the U.S. Food and Drug Administration. 12 ADDITIONAL INFORMATION This test was developed and its performance characteristics determined by [facility] in a manner consistent with CLIA requirements. This test has not been cleared or approved by the U.S. Food and Drug Administration. 13 ADDITIONAL INFORMATION This test was developed and its performance characteristics determined by [facility] in a manner consistent with CLIA requirements. This test has not been cleared or approved by the U.S. Food and Drug Administration. Test Performed by: [facility] [employer] [facility] [address] [place] [address] 14 Test Performed by: [facility] [employer] [facility] [address] [place] [id number] 15 ADDITIONAL INFORMATION This test was developed and its performance characteristics determined by [facility] in a manner consistent with CLIA requirements. This test has not been cleared or approved by the U.S. Food and Drug Administration. 16 ADDITIONAL INFORMATION This test was developed and its performance characteristics determined by [facility] in a manner consistent with CLIA requirements. This test has not been cleared or approved by the U.S. Food and Drug Administration. Test Performed by: [facility] [place] [address] 17 RESULT: 05:01,05 REFERENCE VALUE Not Applicable [...] medium resolution molecular values. Performing Laboratory CLIA# [id number] Test Performed by: [facility] - [address] [address] Test Performed by: [facility] [place] [address] 21 Test Performed by: [facility] [place] [address] 22 ADDITIONAL INFORMATION This test was developed and its performance characteristics determined by [facility] in a manner consistent with CLIA requirements. This test has not been cleared or approved by the U.S. Food and Drug Administration. Test Performed by: [facility] [address] [place] [address] 23 Test Result Flag Units Reference Folate, RBC Folate, Hemolysate 371.2 ng/mL Not Estab. Hematocrit 42.7 % 34.0-46.6 Folate, RBC 869 ng/mL >498 Performed at [facility] [address] Dir: Ofelia Oliva MD 24 Estradiols <40 [...] ng/ml Procedures Date Code Description Status 06/15/2019 37556 Laparoscopy/Peritoneoscopy W/Aspiration Of Cavity Or Completed Cyst 06/15/2019 57951 Laparoscopy/Peritoneoscopy W/Aspiration Of Cavity Or Completed Cyst 06/15/2019 95415 Laparoscopy/Peritoneoscopy W/Aspiration Of Cavity Or Completed Cyst 06/13/2019 39648 Laparoscopy Cholecystectomy Completed 06/13/2019 56789 Laparoscopy Cholecystectomy Completed 06/13/2019 52611 Laparoscopy Cholecystectomy Completed 04/17/2019 14752 Diffusing Capacity Completed 04/17/2019 57353 Plethysmography Determination Lung Volumes & Per Airway Completed Resist 04/17/2019 59253 Spirometry Incl Graphic Record Completed 06/21/2018 86964604 Colonoscopy Completed 07/15/2015 68728754 Colonoscopy Completed 04/14/2007 55264011 Colonoscopy Completed Medical Devices Description No Information Available Encounters Type Date Location Provider Dx Diagnosis Office Visit 08/25/2019 Rheumatology Brian Gamboa, A69.22 Other neurologic 9:20a [facility] 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 disease R20.8 Other disturbances of skin sensation M79.10 Myalgia, unspecified site R31.9 Hematuria, unspecified R19.7 Diarrhea, unspecified Office Visit 06/09/2019 Surgical Star De Santiago, 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[facility] , 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 Office Visit 06/05/2019 Rheumatology Brian Gamboa, A69.22 Other neurologic 8:40a [facility] 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 disease R20.8 Other disturbances of skin sensation R53.83 Other fatigue Office Visit 05/18/2019 [facility] Nish Escobar 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 pain, unspecified Assessments Date Code Description Provider 10/05/2019 J45.998 Other asthma Curry Soto MD [...] Viridiana Fischer MD Plan of Treatment Future Appointment(s):10/12/2019 2:40 pm - Brian Gamboa M.D. at [facility]10/05/2019 - Curry Soto MDJ45.998 Other asthmaComments:She is maintained on albuterol as needed. She also saw an shopper insights manager for allergic rhinitis.R91.8 Other nonspecific abnormal finding of lung fieldNew Xrays:CT Chest W/O, Ordered: 10/05/19Comments:Patient is interested in obtaining a CT of the chest.Follow up:Follow-up as needed. Functional Status Description No Information Available Mental Status Description No Information Available Referrals Description No Information Available
[2019-11-29 18:12] LABS: Albumin 4.6 g/dL (3.2-5.2); Albumin/Globulin Ratio 1.6 (1-3); BUN/Creatinine Ratio 13.3 (8-20); C Reactive Protein 1.89 mg/L (<8.01); Calcium 8.9 mg/dL (8.6-10.3); EGFR African American 91.2 (>60); EGFR Non-African American 75.4 (>60); Globulin 2.8 g/dL (2-4); Magnesium 1.9 mg/dL (1.9-2.7); Potassium 3.2 mmol/L (3.5-5.0); Total Bilirubin 0.3 mg/dL (0.2-1.0); Total Protein 7.4 g/dL (6.4-8.9)
[2019-11-29] MEDS ORDERED: Potassium Chlor TAB* 20 MEQ TAB.ER PO ONE (18:20)
[2019-11-29 18:54] VITALS: BP 123/81
[2019-11-29 19:46] LABS: Erythrocyte Sed Rate 3 mm/Hr (0-19)
== END 2019-11-29 18:52 | disposition home or self-care (01) ==
LOC: ED 16:37
DX: R20.2 Paresthesia of skin (principal); R53.1 Weakness; R20.0 Anesthesia of skin; F41.9 Anxiety disorder, unspecified; F32.9 Major depressive disorder, single episode, unspecified; Z87.891 Personal history of nicotine dependence
CPT/HCPCS: 36415; 80053; 83735; 85025; 85652; 86140; 93005; 99282; A9270-GY